=== PATIENT | female | born 1950 | race Caucasian/White ===

== ENCOUNTER 2020-11-20 16:39 | Observation (INO) | payer MEDICARE, OTHER, SELFPAY ==
[2020-11-20] VITALS (12 sets, daily range): BP systolic 148–190; BP diastolic 75–114; PULSE 80–109; RESP 16–20; TEMP 36.5–36.8; O2SAT 95–99; BMI 30.7; BMI 30.1
--- NOTE | 2020-11-20 16:52 | CT_ITS ---
We are attempting to reach an attending provider to discuss findings. An addendum with communication details will be sent when the communication is complete. STUDY: CT BRAIN WITHOUT CONTRAST REASON FOR EXAM: Female, 70 years old. Neuro deficit, acute, stroke suspected RADIATION DOSAGE (If Supplied By Facility): CTDIvol = ( ) mGy, DLP = ( ) mGycm TECHNIQUE: Transaxial CT imaging of the brain was performed without administration of intravenous contrast material. Individualized dose optimization techniques were used for this CT. COMPARISON: No relevant priors. FINDINGS: Normal soft tissue structures. Normal calvarium. Normal size ventricles and extra-axial spaces for the patient''s age. Normal white matter tracts of the cerebral hemispheres. Normal basal ganglia and thalami. Normal brainstem. Normal cerebellum. There is no intracranial hemorrhage. There are no findings of an acute ischemic infarction. Normal visualized paranasal sinuses. CT/STROKE Brain/Head without Cont IMPRESSION: Normal unenhanced CT scan of the brain. Electronically Signed: Bozena Ayala MD at 17:15 EST Tel , Service support ,
--- NOTE | 2020-11-20 16:52 | EKG12_ITS ---
Test Reason : STROKE Blood Pressure : / mmHG Vent. Rate : 101 BPM Atrial Rate : 101 BPM P-R Int : 160 ms QRS Dur : 092 ms QT Int : 352 ms P-R-T Axes : 069 -24 080 degrees QTc Int : 456 ms Sinus tachycardia N[address] and T wave abnormality Abnormal ECG Confirmed by DAVID LEWIS, CYRUS ([id number]), vehicle controls engineer CHET KINNEY ([id number]) on 11/22/2020 10:33:04 AM Referred By: Confirmed By:CYRUS HERNANDEZ MD
--- NOTE | 2020-11-20 16:54 | ED.DCSUM_ITS ---
- ER Visit Summary Date of Service: 11/20/20 Chief Complaint: Dizziness, left arm and leg weakness History of Present Illness: The patient is a 70 F presenting with an episode of dizziness earlier this morning. She states approximately one hour prior to arrival she began having left arm and leg weakness. She states she was walking and started having difficulty using her left leg. These symptoms lasted approximately 20 minutes. She states she had lightheadedness earlier this morning without vertigo. This episode lasted about 30 minutes. She denies vision or speech changes. Her symptoms are now resolved. She does currently feel anxious. She denies other complaints. Physical Examination: Vitals are stable. Patient is afebrile. Alert no acute distress. HEENT exam is unremarkable. Neck is supple. Lungs are clear and equal bilaterally. Heart is regular rate and rhythm. Abdomen is soft nontender nondistended. Extremities are unremarkable. Skin is warm and dry. NIH 1 decreased sensation on left side Remainder of exam is unremarkable. Emergency Department Course and Treatment: Stroke team was activated on patient's arrival. EKG is sinus tachycardia rate of 101 with no acute ischemic changes. Noncontrast head CT was unremarkable. Patient is allergic to IV contrast so CTA was not performed. CBC, chemistries unremarkable. INR 1.1. Troponin 0.029. Discussed with [facility] neurology. They recommend MRI and further work-up. Discussed with hospitalist for observation. Disposition: Observation Impression: TIA This note was generated with [employer] dictation software. It may contain incorrect words, spelling, and punctuation that were not noted in review of the chart prior to signing ED Disposition - Plan for ED Patient: Referrals: Jeniffer Leo MD [Primary Care Provider] -
[2020-11-20 17:01] LABS: Absolute Lymphocyte Count 2.59 X10^3/uL (0.83-4.51); Absolute Neutrophil Count 5.2 X10^3/uL (2.0-7.7); Basophil# 0.06 X10^3/uL; Basophil% 0.7 % (0-1); Eosinophil# 0.05 X10^3/uL; Eosinophils% 0.6 % (0-5); Hematocrit 40.4 % (37-47); Hemoglobin 12.9 g/dL (12.0-15.0); Lymphocyte # 2.59 X10^3/ul (4.0); Lymphocyte % 30.1 % (19-41); Mean Corp Hgb Conc 31.9 g/dL (32-36); Mean Corpuscular Hgb 31.2 pg (27.0-32.0); Mean Corpuscular Volume 97.8 fL (81-99); Mean Platelet Vol. 9.6 fl (6.2-12.0); Monocyte# 0.72 X10^3/uL; Monocyte% 8.4 % (0-10); NRBC Flagged by Analyzer 0 % (0-5); Neutrophil # 5.16 X10^3/uL (2.7-7.7); Platelet Count 294 K/mm3 (150-450); RBC Distribution Width CV 13.2 % (11.6-14.6); RBC Distribution Width SD 47.8 fl (35.1-43.9); Red Blood Count 4.13 M/mm3 (4.2-5.4); White Blood Count 8.6 K/mm3 (4.4-11.0)
[2020-11-20 17:10] LABS: International Normalized Ratio 1.1; Partial Thromboplast Time 24.8 Seconds (24.1-36.2); Prothrombin Time (Protime)PT. 13.3 SECONDS (11.7-14.9)
[2020-11-20 17:11] LABS: Bedside Glucose 121 mg/dL (70-110)
[2020-11-20 17:23] LABS: Anion Gap 9 (5-15); BUN 14 mg/dL (7-18); Calcium,Total 9.2 mg/dL (8.5-10.1); Chloride 103 mmol/L (98-107); Creatinine, Serum 1.08 mg/dL (0.55-1.02); EST Glomerular Filtration Rate 54 mL/min (>60); Est Glom Filt Rate - Afr Amer 65 mL/min (>60); Estimated Creatinine Clearance 46.67 ml/min; Glucose 125 mg/dL (74-106); Potassium 3.6 mmol/L (3.5-5.1); Sodium Level 140 mmol/L (136-145)
--- NOTE | 2020-11-20 17:35 | RAD_ITS ---
STUDY: X-RAY CHEST REASON FOR EXAM: Female, 70 years old. Neuro deficit, acute, stroke suspected TECHNIQUE: Single AP portable view of the chest. COMPARISON: None. FINDINGS: The lungs are clear and expanded. There is no demonstrated pleural abnormality. Normal size heart. Normal mediastinum and luis. Normal visualized pulmonary arteries. Normal visualized aortic arch and descending thoracic aorta. Normal visualized thoracic spine. Normal visualized ribs, clavicles, and shoulders. There is no demonstrated abnormality of the visualized soft tissue structures of the upper abdomen. RAD/Chest 1 View IMPRESSION: Normal x-ray examination of the chest. Electronically Signed: Bozena Ayala MD at 18:00 EST Tel , Service support ,
[2020-11-20] MEDS: Aspirin 325 MG Tablet PO (17:47)
--- NOTE | 2020-11-20 17:58 | HP.PCM_ITS ---
Problem List (1) Raynaud phenomenon Status: Chronic (2) HTN (hypertension) Status: Chronic (3) Hyperlipidemia Status: Chronic (4) Vitamin D deficiency Status: Chronic (5) Vertigo Status: Acute Comment: Acute on chronic (6) Left-sided weakness Status: Acute History of Present Illness Date of Admission: 11/20/20 Ms. Botello is a 70 year old WF with a past medical history of hypertension, hyperlipidemia, Raynaud's disease, vertigo, and anxiety scented to the emergency department on 11/20/2020 with chief complaint of dizziness and left arm and leg weakness. The patient reports that approximately 1030 this morning she started having some dizziness. She states the vertigo is not an abnormal symptom for her and she usually gets it a few times a year. She has been worked up in the past for this dizziness and it has been related to an inner ear problem. However, she had persistent intermittent dizziness for a good bit the day and this evening she began having left arm and leg weakness. This started approximately 1 hour prior to arrival to the emergency department. She reports the symptoms lasted approximately 20 minutes and then they improved, however they seem to be waxing and waning at this time. At the present time she is lee ving no symptoms. She states when the neurologist did his total exam she was able to ambulate around the room without any difficulty but then when the nurse got her to go up to the bathroom and she had to walk a distance she noted that her left side seemed weak. Her NIH at the present time is 0. She has normal strength and sensation bilaterally at this time. Vital signs show a temp of 97.7, she is mildly tachycardic with a heart rate of 101-1\05, she has been hypertensive in the emergency department. Her oxygen saturation is 98% on room air with normal respiratory rate. Her CBC is unremarkable. Her coags are unremarkable. BMP shows mild creatinine elevation at 1.08. I am unclear what her baseline serum creatinine is as she has had no labs drawn here in the past. Her troponin was 0.029. Her EKG shows normal sinus rhythm with intermittent PACs and no signs of acute ischemia. CT of her head was performed and was normal. A CTA was deferred as the patient has an allergy to iodinated contrast media. Stroke team was called on arrival in the telestroke neurologist did evaluate the patient the recommendations were for a full TIA work-up including an MRA/MRI of the head and neck, and echocardiogram, lipids, and hemoglobin A1c. She will be admitted to PCU for continued work-up. Past Medical History Past Medical History (Chronic Problems): Chronic Problems Raynaud phenomenon (Chronic) HTN (hypertension) (Chronic) Hyperlipidemia (Chronic) Vitamin D deficiency (Chronic) Allergies Iodinated Contrast Media Allergy (Verified 11/20/20 17:16) Swelling naproxen Allergy (Verified 11/20/20 16:40) Rash azithromycin [From Zithromax] Adverse Reaction (Verified 11/20/20 16:40) Vomiting Home Medications: Ambulatory Orders Medication Instructions Recorded Amlodipine [Norvasc] 5 mg PO DAILY 11/20/20 B1/B2/Niacin/B12/Protease 1 ea PO DAILY 11/20/20 [B-Complex with B-12 Tablet] Calcium Citrate/Vitamin D3 1 ea PO DAILY 11/20/20 [Calcium Citrate - Vit D Caplet] Cholecalciferol (Vitamin D3) 2,000 unit PO DAILY 11/20/20 [Vitamin D3] [place]-3 Fatty Acids/Fish Oil 1 ea PO DAILY 11/20/20 [[place] 3 Fish Oil Softgel] Rosuvastatin Calcium 5 mg PO DAILY 11/20/20 Ubidecarenone [Coq10] 100 mg PO DAILY 11/20/20 Surgical History: noncontributory Psychiatric History: No pertinent psych hx Lives: Alone Smoking Status: Never smoker Tobacco Use: Non-smoker Alcohol: Rare Drugs: None - *Family History Maternal History Items: Unknown, No pertinent history Paternal History Items: Unknown Sibling History Items: - - Mother is MRDD Review of Systems Constitutional: Denies: Anorexia, Chills, Fever, Night Sweats, Malaise, Weakness, Weight Change, Fatigue Eyes: Denies: Blurred vision, Cataracts, Conjunctivae Inflammation, Double vision, Drainage, Eyelid Inflammation, Pain, Redness, Vision Change HEENT: Denies: Difficulty Hearing, Difficulty Swallowing, Eye Pain, Head Aches, Nasal bleeding, Nasal Congestion, Post Nasal Drip, Sinus Congestion, Sinus Drainage, Sore Throat, Visual Changes Cardiovascular: Denies: Chest Pain, Claudication, Chest Pressure, Chest Tightness, Edema, Heaviness, Light Headedness, Orthopnea, Palpitations, Paroxysmal Noc. Dyspnea, Syncope Respiratory: Denies: Cough, Hemoptysis, Pleuritic Pain, Shortness of Breath, Shortness of breath at rest, Shortness of breath upon exertion, Sputum production, Wheezing Gastrointestinal: Denies: Abdominal Pain, Constipation, Diarrhea, Dyspepsia, Hematemesis, Hematochezia, Nausea, Melena, Vomiting Genitourinary: Denies: Dysuria, Frequency, Hematuria, Hesitancy, Incontinence, Nocturia, Retention, Urgency Musculoskeletal: Denies: Back Pain, Joint Pain, Joint stiffness, Joint swelling, Joint Tenderness, Muscle pain, Neck Pain Skin: Reports: - - Remittent Raynaud's in the cold. Denies: Dryness, Jaundice, Lesions, Pruritis, Rash, Skin Changes, Wounds Neurological: Reports: Focal weakness - Resolved-left upper and lower extremity, Numbness - Resolved-left upper and lower extremity. Denies: Balance problems, Blurred vision, Double vision, Change in Speech, Slurred speech, Confusion, Difficulty swallowing, Headaches, Incoordination, Tingling, Tremor, Seizures Psychiatric: Denies: Anxiety, Depression Endocrine: Denies: Change in Body Habitus, Heat/ Cold Intolerance, Polydipsia, Polyuria Hematologic/ Lymphatic: Denies: Adenopathy, Anemia, Easy Bruising, Easy Bleeding, Petechiae, Purpura VTE Information - Inpt Only VTE Present on Admission: No VTE Mechan Device Prophylaxis: SCD's VTE Pharm Prophylaxis ordered?: Yes - Physical Exam Vitals/I&O's: Vital Signs Temp Pulse Resp BP Pulse Ox 97.7 F L 105 H 17 175/81 H 98 11/20/20 17:31 11/20/20 17:31 11/20/20 17:31 11/20/20 17:31 11/20/20 17:31 Oxygen Delivery Method Room Air Weight: 86.183 kg Body Mass Index (BMI) 30.7 Finger Stick Blood Glucose 121 General: Alert, Oriented x3, Cooperative, No apparent distress, Well developed, Well nourished, - - Anxious upper middle-aged white female sitting up in bed, daughter at bedside, patient very talkative HEENT: Atraumatic, PERRLA, EOMI, Normocephalic, EAC Clear Oral: Moist Mucosa, No Gingival or Mucosal Lesions/ Ulcerations, - - Mallampati 2, no thrush Neck: Supple, No JVD, Negative Carotid Bruits, Negative Hepatojugular Reflux, No Nodes, No Nuchal Rigidity, Trachea Midline, Thyroid Normal Size and Texture Lungs: Clear to auscultation, Normal air movement, No rhonchi, No wheeze, No rales Cardiovascular: Regular rate, Regular Rhythm, Normal S1, Normal S2, No murmurs, No rub noted, No Gallop, - - Intermittent ectopy, appears to be PACs upon review of telemetry Abdomen: Bowel Sounds Present, Soft, Non Tender, Non-Distended, No Hepato- splenomegaly, Obese, No hernias noted, - Extremities: No clubbing, No cyanosis, No edema, Capillary Refill Less than 3 Seconds, Peripheral Pulses Normal Skin: No rashes, No breakdown Musculoskeletal: No Tenderness to Palpation of Joints or Extremities, No Muscle Wasting, Arthritic Changes Lymphatic: No Cervical, Supraclavicular, or Inguinal Adenopathy Neurological: Cranial nerves II-XII grossly intact, Deep Tendon Reflexes 2+/4 and Symmetrical, Neuro grossly intact, Motor Exam 5/5 strength throughout, Muscle tone normal, Sensory exam intact to light touch and pain, Coordination normal Psych/Mental Status: Normal Affect, Appropriate, Anxious Laboratory Results 11/20/20 16:54: WBC 8.6, RBC 4.13 L, Hgb 12.9, Hct 40.4, MCV 97.8, MCH 31.2, MCHC 31.9 L, RDW Std Deviation 47.8 H, RDW Coeff of Kirill 13.2, Plt Count 294, MPV 9.6, Immature Gran % (Auto) 0.200, Neut % (Auto) 60.0, Lymph % (Auto) 30.1, [place] % (Auto) 8.4, Eos % (Auto) 0.6, Baso % (Auto) 0.7, Absolute Neuts (auto) 5.2, Absolute Lymphs (auto) 2.59, Nucleated RBC % 0 11/20/20 16:54: PT 13.3, INR 1.1, APTT 24.8 11/20/20 16:54: Sodium 140, Potassium 3.6, Chloride 103, Carbon Dioxide 28.0, Anion Gap 9, BUN 14, Creatinine 1.08 H, Estim Creat Clear Calc 46.67, Est GFR (MDRD) Af Amer 65, Est GFR (MDRD) Non-Af 54 L, BUN/Creatinine Ratio 13.0, Glucos e 125 H, Calcium 9.2, Troponin I 0.029 11/20/20 17:04: POC Glucose 121 H Current Medications Labetalol HCl (Labetalol (Prefilled) 20 Mg/4 Ml) 20 mg IV X1 PRN PRN Reason: BLOOD PRESSURE Assessment/Plan All Active Problems Vertigo (Acute) Left-sided weakness (Acute) Acute left-sided weakness and vertigo -Stroke team initiated in the emergency department--> no TPA given -Current NIH is 0 -Symptoms have completely resolved at this time -Check lipids and hemoglobin A1c in the a.m. -MRA/MRI in a.m. -Check echocardiogram -Stroke order set utilized -Consider SOC consultation in the a.m. Hypertension -Continue home amlodipine -May need up titration of her home medication upon review of blood pressures during admission Hyperlipidemia -Continue statin -Check lipids Raynaud's phenomenon -Continue amlodipine Mild SHERRILL -IV fluids at 100 cc/h x 1 L -Repeat BMP in the a.m. Vitamin D deficiency -Restart vitamin D supplementation upon discharge Obesity -Recommend weight loss -BMI 30.7 DVT prophylaxis -Lovenox 40 mg daily CODE STATUS -Full code Inpatient E&M: 28462 Init Hosp L3
--- NOTE | 2020-11-20 18:01 | ECHOCS_ITS ---
Reason For Study: TIA/CVA Procedure This was a 2D Doppler, Color Flow transthoracic echocardiogram. The study was technically difficult. Contrast injection was performed. Exam performed portable in patient room. Left Ventricle Normal LV size. Left ventricular systolic function is normal. The estimated ejection fraction is 60 %. No regional wall motion abnormalities noted. Right Ventricle Normal RV size. Normal systolic function. Atria Normal left atrium. Normal right atrium. Bubble contrast study negative for right to left interatrial shunt. Mitral Valve Normal mitral valve. Tricuspid Valve Normal tricuspid valve. Aortic Valve Trisinus/trileaflet aortic valve. Pulmonic Valve Normal pulmonic valve. Great Vessels Normal aortic root. The pulmonary artery is normal size. Normal inferior vena cava. Pericardium/Pleural No pericardial effusion. Medication Diluted definity 2.5ml given slow IV push to enhance endocardial definition. Performed a rapid injection of agitated mix of 9 cc saline and 1cc air to assess for atrial septal defect. MMode/2D Measurements & Calculations LVIDd: 5.0 cm IVSd: 0.95 cm Ao root diam: 3.5 cm LVIDs: 3.2 cm LVPWd: 1.0 cm LA dimension: 3.5 cm FS: 35.7 % LAV(MOD-bp): 72.6 ml LA A4 area: 21.3 cm2 RA A4 area: 17.3 cm2 LAV(MOD-bp) Indexed: 37.2 ml/m2 LAV(MOD-sp2): 72.3 ml LAV(MOD-sp4): 67.3 ml Time Measurements MV dec time: 0.25 sec Doppler Measurements & Calculations MV E max nasima: 78.1 cm/sec MV V2 max: 76.4 cm/sec MV P1/2t max nasima: 77.6 cm/sec MV A max nasima: 71.7 cm/sec MV max P.3 mmHg MV P1/2t: 80.0 msec MV E/A: 1.1 MV V2 mean: 50.3 cm/sec MV dec slope: 284.3 cm/sec2 MV mean P.1 mmHg MV V2 VTI: 24.6 cm MVA(P1/2t): 2.8 cm2 Ao V2 max: 156.0 cm/sec LV V1 max: 103.0 cm/sec PA V2 max: 87.6 cm/sec Ao max P.7 mmHg LV V1 max P.2 mmHg Interpretation Summary Normal LV size. Left ventricular systolic function is normal. The estimated ejection fraction is 60 %. Bubble contrast study negative for right to left interatrial shunt. Contrast injection was performed. Structurally normal valves. Ordering Physician: Yesenia Oshea Referring Physician: JARETT COTA Performed By: Kurt Smiley RCS
[2020-11-20] MEDS: 0.9% Normal Saline 1,000 ML 100 ML IV (18:10)
[2020-11-20] MEDS: 0.9% Saline Lock 10 ML Syringe IV (18:58)
[2020-11-20] MEDS: Atorvastatin Calcium 10 MG Tablet PO (21:30)
[2020-11-20] MEDS: Ibuprofen 600 MG Tablet PO (22:33)
[2020-11-21] VITALS (8 sets, daily range): BP systolic 117–134; BP diastolic 57–97; PULSE 57–79; RESP 18; TEMP 36.3–36.7; O2SAT 95–97; BMI 30.1
[2020-11-21 05:27] LABS: Absolute Lymphocyte Count 2.91 X10^3/uL (0.83-4.51); Basophil# 0.05 X10^3/uL; Basophil% 0.9 % (0-1); Eosinophil# 0.07 X10^3/uL; Eosinophils% 1.3 % (0-5); Hematocrit 36.1 % (37-47); Hemoglobin 11.5 g/dL (12.0-15.0); Lymphocyte # 2.91 X10^3/ul (4.0); Lymphocyte % 53.5 % (19-41); Mean Corp Hgb Conc 31.9 g/dL (32-36); Mean Corpuscular Hgb 31.2 pg (27.0-32.0); Mean Corpuscular Volume 97.8 fL (81-99); Mean Platelet Vol. 9.3 fl (6.2-12.0); Monocyte# 0.42 X10^3/uL; Monocyte% 7.7 % (0-10); NRBC Flagged by Analyzer 0 % (0-5); Neutrophil # 1.98 X10^3/uL (2.7-7.7); Neutrophil % 36.4 % (47-70); Platelet Count 250 K/mm3 (150-450); RBC Distribution Width CV 13.2 % (11.6-14.6); Red Blood Count 3.69 M/mm3 (4.2-5.4); White Blood Count 5.4 K/mm3 (4.4-11.0)
[2020-11-21 05:50] LABS: ALB/GLOB Ratio 0.8 RATIO (0.9-2.4); AST(SGOT) 19 U/L (15-37); Alanine Aminotransfer ALT/SGPT 26 U/L (13-56); Alkaline Phosphatase 93 U/L (45-117); Anion Gap 6 (5-15); BUN 10 mg/dL (7-18); BUN/Creat Ratio 14.4 RATIO (10-20); Calcium,Total 8.5 mg/dL (8.5-10.1); Chloride 108 mmol/L (98-107); Cholesterol 181 mg/dL (200); Creatinine, Serum 0.69 mg/dL (0.55-1.02); EST Glomerular Filtration Rate 90 mL/min (>60); Est Glom Filt Rate - Afr Amer 108 mL/min (>60); Estimated Creatinine Clearance 50.41 ml/min; Globulin 3.6 g/dL (2.2-4.2); Glucose 97 mg/dL (74-106); High Density Lipoprotein 84 mg/dL; Magnesium 2.2 mg/dL (1.6-2.6); Phosphorus 3.3 mg/dL (2.5-4.9); Potassium 3.4 mmol/L (3.5-5.1); Protein, Total 6.6 g/dL (6.4-8.2); Sodium Level 142 mmol/L (136-145); Thyroid Stim Hormone (TSH) 3.15 uIU/mL (0.358-3.74); Triglycerides 51 mg/dL; Very Low Density Lipoprotein 10 mg/dL (5-40)
--- NOTE | 2020-11-21 08:00 | MRI_ITS ---
HISTORY: stroke, L SIDED WEAKNESS, DIZZINESS COMPARISON: MRI and MRA brain performed same time TECHNIQUE: MR angiography of the neck was performed per department protocol without IV gadolinium. Nascet criteria using the distal ICAs for comparison were used for evaluation of stenoses. # of images incl. paperwork: 547 FINDINGS: CAROTID: RIGHT: Normal appearing carotid bifurcation. Cervical course of the internal carotid artery is within normal limits without focal stenosis, aneurysm, or dissection. Normal CCA. Origin and proximal visualized branches of the external carotid artery appears normal. LEFT: Normal appearing carotid bifurcation. Cervical course of the internal carotid artery is within normal limits without focal stenosis, aneurysm, or dissection. Normal CCA. Origin and proximal visualized branches of the external carotid artery appears normal. VERTEBRAL: Bilateral vertebral arteries have a normal appearance with co-dominance. OTHER: Noncontributory. MRI/MRA Neck without Contrast IMPRESSION: 1. Negative MRA of the neck. at 1738 Reported and signed by: Blake Couch MD Electronically Signed: Blake Couch MD at 17:37 EST Tel , Service support ,
--- NOTE | 2020-11-21 08:00 | MRI_ITS ---
HISTORY: stroke, L SIDED WEAKNESS, DIZZINESS COMPARISON: CT brain performed one day prior to 12/05/2021 TECHNIQUE: Multisequence multiplanar MR imaging of the brain per department protocol without IV gadolinium. # of images including paperwork: 289 FINDINGS: BRAIN: Diffusion-weighted imaging shows no acute infarct. No remote parenchymal infarct. No parenchymal hemorrhage, intra-axial mass, mass effect, or midline shift. No abnormal extra-axial fluid collections. VENTRICLES: Ventricles are normal in size and configuration. No hydrocephalus. PARANASAL SINUSES: Clear MASTOIDS: Mastoid air cells are clear. ORBITS: Orbits are unremarkable. MRI/Brain without Contrast IMPRESSION: 1. No acute infarct or acute intracranial disease. 2. Negative noncontrast MR examination of brain. at 1655 Reported and signed by: Blake Couch MD Electronically Signed: Blake Couch MD at 16:54 EST Tel , Service support ,
--- NOTE | 2020-11-21 08:00 | MRI_ITS ---
HISTORY: stroke, L SIDED WEAKNESS, DIZZINESS COMPARISON: MRI brain performed same time TECHNIQUE: MR angiography of the brain was performed per department protocol without IV gadolinium. # of images incl. paperwork: 195 FINDINGS: Distal aspect of bilateral internal carotid arteries have a normal appearance without focal stenosis or aneurysmal dilatation. Proximal branches of bilateral anterior and middle cerebral arteries have a normal appearance. Flow signal is seen within the anterior communicating artery. Basilar artery is normal in caliber without focal stenosis or basilar tip aneurysm. Mild vertebrobasilar tortuosity. Bilateral posterior cerebral arteries are identified emanating from the basilar tip and are within normal limits within the visualized portions. Non-visualized right PCOM. Non-visualized left PCOM.The vertebrobasilar junction is intact. No aneurysm, acute branch occlusion, high-grade stenosis, or arteriovenous malformation. MRI/MRA Head ONLY without Contrast IMPRESSION: 1. Negative MRA of the brain. at 1717 Reported and signed by: Blake Couch MD Electronically Signed: Blake Couch MD at 17:16 EST Tel , Service support ,
[2020-11-21 08:17] LABS: Hemoglobin A1c 5.4 % (3.8-5.6)
[2020-11-21] MEDS: Aspirin 81 MG TAB.CHEW PO (09:38)
[2020-11-21] MEDS: amLODIPine 5 MG Tablet PO (09:38)
[2020-11-21] MEDS: Enoxaparin 40 MG/0.4 ML Syringe SC (09:38)
[2020-11-21] MEDS: Potassium Chloride Oral Tablet 20 MEQ 40 MEQ PO (09:38)
--- NOTE | 2020-11-21 10:31 | CASEMGMT ---
SW completed a PHQ 9 with patient as she may have had a Stroke or TIA. She scored a 4 which indicates minimal depression. She said she would normally be fine, however she is putting her 2 dogs down tomorrow. They have been keeping her up as they are really sick. SW offered support. She declined need for any counseling resources. Yulisa VALDEZ MSW
--- NOTE | 2020-11-21 11:36 | DCINST_ITS ---
- Discharge Diagnoses Current Active Problems: Current Active and Chronic Problems Raynaud phenomenon (Chronic) HTN (hypertension) (Chronic) Hyperlipidemia (Chronic) Vitamin D deficiency (Chronic) Vertigo (Acute) Acute on chronic Left-sided weakness (Acute) You will use the following diet at home:: No restrictions Discharge Activity: Return to Normal Activity Call your doctor if you observe: Shortness of breath, Dizziness, Fainting spells, Chest pain Allergies/Adverse Reactions: Allergies Iodinated Contrast Media Allergy (Verified 11/20/20 17:16) Swelling naproxen Allergy (Verified 11/20/20 16:40) Rash azithromycin [From Zithromax] Adverse Reaction (Verified 11/20/20 16:40) Vomiting Medications to take at Discharge Amlodipine [Norvasc] 5 mg PO DAILY 11/20/20 B1/B2/Niacin/B12/Protease [B-Complex with B-12 Tablet] 1 ea PO DAILY 11/20/20 Calcium Citrate/Vitamin D3 [Calcium Citrate - Vit D Caplet] 1 ea PO QHS 11/20/20 Cholecalciferol (Vitamin D3) [Vitamin D3] 2,000 unit PO DAILY 11/20/20 Glucos Sul 2Kcl/MSM/Chond/C/Mn [Glucosamine Chondroitin Cap] 1 cap PO BID 11/20/20 Ibuprofen 1 tab PO QHS 11/20/20 [place]-3 Fatty Acids/Fish Oil [[place] 3 Fish Oil Softgel] 1 ea PO DAILY 11/20/20 Ubidecarenone [Coq10] 100 mg PO QHS 11/20/20 Aspirin [Aspirin, Baby] 81 mg PO DAILY@0800 #30 tab.chew 11/21/20 Atorvastatin Calcium 40 mg PO QHS #30 tab 11/21/20 Pantoprazole Sodium [Protonix] 20 mg PO DAILY #30 tab 11/21/20 The following prescriptions were given: Aspirin [Aspirin, Baby] 81 mg PO DAILY@0800 #30 tab.chew Transmission Status: Pending to [id number] Atorvastatin Calcium 40 mg PO QHS #30 tab Transmission Status: Pending to [id number] Pantoprazole Sodium [Protonix] 20 mg PO DAILY #30 tab Transmission Status: Pending to [id number] Primary Care Physician: Jeniffer Leo MD [Primary Care Provider] - Please follow up with your Primary Care Physician in: 1 Week Test Results: Test results from this visit will be discussed in further detail at your follow- up appointment, if applicable. Please Follow Up With: Albino Solomon MD - Neurology When: Call for appointment Proposed Discharge Date: 11/21/20
--- NOTE | 2020-11-21 14:02 | CHAPLAIN ---
Type of Pastoral Visit _x__ Initial Visit ___ Follow-up Visit ___ On-call Visit ___ General Patient Visit ___ Spiritual Assessment ___ Family Conference ___ Bereavement ___ Rapid Response ___ Code Blue ___ Other (describe below) Pastoral Care Referral From _x__ Patient ___ Family ___ Nurse ___ Physician ___ Neck Fitter ___ Lead Network Architect ___ Other (describe below) Sacrament/Intervention _x__ Active listening ___ Anointing ___ Jain ___ Bereavement ___ Communion ___ Brenna exploration ___ ___ Life review _x__ Prayer ___ Reconciliation ___ Sacrament of Sick ___ Supportive presence ___ Wedding ___ Other (describe below) Pastoral Comments patient had requested that her catholic/cable cutter and swager be notified of her admission however since she believes she is being discharged today she stated that she will contact her catholic; pt did welcome a prayer and specifically for emotional needs as she has her dogs put down tomorrow.
--- NOTE | 2020-11-21 14:39 | PHA.DC.MC ---
Pharmacy Service has performed discharge medication reconciliation and counseling for this patient. The patient was counseled on the following discharge medications and changes in medications for homegoing were reviewed. 1. aspirin 2. lipitor - see note below 3. protonix The Reason for Use, instructions for use, and potential side effects were reviewed for all new medications. The patient's questions regarding all of their medications were answered. The patient was able to verbally demonstrate an understanding of their discharge medications. Home Medications Amlodipine [Norvasc] 5 mg PO DAILY 11/20/20 B1/B2/Niacin/B12/Protease [B-Complex with B-12 Tablet] 1 ea PO DAILY 11/20/20 Calcium Citrate/Vitamin D3 [Calcium Citrate - Vit D Caplet] 1 ea PO QHS 11/20/20 Cholecalciferol (Vitamin D3) [Vitamin D3] 2,000 unit PO DAILY 11/20/20 Glucos Sul 2Kcl/MSM/Chond/C/Mn [Glucosamine Chondroitin Cap] 1 cap PO BID 11/20/20 Ibuprofen 1 tab PO QHS 11/20/20 [place]-3 Fatty Acids/Fish Oil [[place] 3 Fish Oil Softgel] 1 ea PO DAILY 11/20/20 Ubidecarenone [Coq10] 100 mg PO QHS 11/20/20 Aspirin [Aspirin, Baby] 81 mg PO DAILY@0800 #30 tab.chew 11/21/20 Pantoprazole Sodium [Protonix] 20 mg PO DAILY #30 tab 11/21/20 Rosuvastatin Calcium [Crestor] 20 mg PO QHS #30 tab 11/21/20 The patient's discharge medication list was reviewed for discrepancies and discrepancies were resolved. NOTE: Pt was prescribed atorvastatin. During counseling, pt said she was previously on lipitor then was switched to crestor and had more success with that medication. Notified provider, med was switched from Lipitor back to crestor at a higher dose so pt can be on high intensity statin.
--- NOTE | 2020-11-21 15:26 | PCM.DC.SUM ---
<Belkys Peck NP - Last Filed: 11/21/20 17:25> Discharge Date and Diagnosis - Problem List Patient Problems: Active and Suspected Problems Vertigo (Acute) Acute on chronic Left-sided weakness (Acute) Date of Admission: 11/20/20 Date of Discharge: 11/21/20 - Primary Discharge Diagnosis Acute Problems: Active Problems 1. TIA, transient left-sided weakness 2. Hypertension 3. Hyperlipidemia 4. Raynaud's phenomenon 5. Vitamin D deficiency 6. Obesity - Secondary Discharge Diagnosis Chronic Problems: Chronic Problems Raynaud phenomenon (Chronic) HTN (hypertension) (Chronic) Hyperlipidemia (Chronic) Vitamin D deficiency (Chronic) Hospital Course and Treatment Imaging Results: Operations: None Procedures: 2-D Echocardiogram Summary of Care Provided: The patient is a 70 year old F admitted 11/20/2020 due to dizziness with transient left arm and leg weakness. 1. TIA, transient left-sided weakness-brain CT normal. MRI of brain shows no acute infarct. MRA of neck pending and will be reviewed prior to discharge. Echocardiogram demonstrates an EF of 60%, bubble contrast study negative for [id number] intra-atrial shunt. Discharged on aspirin, statin with neurology follow-up. Patient reports history of GERD and takes nightly ibuprofen for arthritic pain. Placed on prophylactic PPI. Follow-up with PCP in 1 week. 2. Hypertension-stable, continue amlodipine. 3. Hyperlipidemia-continue statin. 4. Raynaud's phenomenon-continue home medication regimen. 5. Vitamin D deficiency-continue supplementation. 6. Obesity-encouraged diet and lifestyle modifications. Patient seen and examined prior to discharge. Physical assessment as noted below. Patient is stable for discharge with follow up recommendations as noted above. This patient was seen by CASSIE LombardiC under the supervision of Dr. Marquez. Patient Problems: Active and Suspected Problems Vertigo (Acute) Acute on chronic Left-sided weakness (Acute) - Physical Exam Vitals/I&O's: Vital Signs Temp Pulse Resp BP Pulse Ox 98.0 F 77 18 117/97 H 95 11/21/20 13:30 11/21/20 13:30 11/21/20 13:30 11/21/20 13:30 11/21/20 13:30 Oxygen Delivery Method Room Air Weight: 189 lb 9.561 oz Body Mass Index (BMI) 30.1 Finger Stick Blood Glucose 121 Intake and Output for Last 24 Hours 11/19/20 11/20/20 11/21/20 23:59 23:59 23:59 Intake Total 2259 Balance 2259 General: Alert, Oriented x3, Cooperative HEENT: Atraumatic, PERRLA, EOMI, Normocephalic Neck: Supple, No JVD, Negative Carotid Bruits Lungs: Clear to auscultation, Normal air movement Cardiovascular: Regular rate, No murmurs Abdomen: Bowel Sounds Present, Soft, Non Tender Extremities: No clubbing, No cyanosis, No edema, Capillary Refill Less than 3 Seconds Skin: No rashes, No breakdown Musculoskeletal: No Tenderness to Palpation of Joints or Extremities Neurological: Cranial nerves II-XII grossly intact, Neuro grossly intact Psych/Mental Status: Normal Affect, Appropriate Laboratory Results 11/20/20 16:54: WBC 8.6, RBC 4.13 L, Hgb 12.9, Hct 40.4, MCV 97.8, MCH 31.2, MCHC 31.9 L, RDW Std Deviation 47.8 H, RDW Coeff of Kirill 13.2, Plt Count 294, MPV 9.6, Immature Gran % (Auto) 0.200, Neut % (Auto) 60.0, Lymph % (Auto) 30.1, Cocke % (Auto) 8.4, Eos % (Auto) 0.6, Baso % (Auto) 0.7, Absolute Neuts (auto) 5.2, Absolute Lymphs (auto) 2.59, Nucleated RBC % 0 11/20/20 16:54: PT 13.3, INR 1.1, APTT 24.8 11/20/20 16:54: Sodium 140, Potassium 3.6, Chloride 103, Carbon Dioxide 28.0, Anion Gap 9, BUN 14, Creatinine 1.08 H, Estim Creat Clear Calc 46.67, Est GFR (MDRD) Af Amer 65, Est GFR (MDRD) Non-Af 54 L, BUN/Creatinine Ratio 13.0, Glucose 125 H, Calcium 9.2, Troponin I 0.029 11/20/20 17:04: POC Glucose 121 H 11/21/20 05:18: WBC 5.4, RBC 3.69 L, Hgb 11.5 L, Hct 36.1 L, MCV 97.8, MCH 31.2, MCHC 31.9 L, RDW Std Deviation 48.0 H, RDW Coeff of Kirill 13.2, Plt Count 250, MPV 9.3, Immature Gran % (Auto) 0.200, Neut % (Auto) 36.4 L, Lymph % (Auto) 53.5 H, Cocke % (Auto) 7.7, Eos % (Auto) 1.3, Baso % (Auto) 0.9, Absolute Neuts (auto) 2.0, Absolute Lymphs (auto) 2.91, Nucleated RBC % 0 11/21/20 05:18: Sodium 142, Potassium 3.4 L, Chloride 108 H, Carbon Dioxide 28.0, Anion Gap 6, BUN 10, Creatinine 0.69, Estim Creat Clear Calc 50.41, Est GFR (MDRD) Af Amer 108, Est GFR (MDRD) Non-Af 90, BUN/Creatinine Ratio 14.4, Glucose 97, Calcium 8.5, Phosphorus 3.3, Magnesium 2.2, Total Bilirubin 0.50, AST 19, ALT 26, Alkaline Phosphatase 93, Total Protein 6.6, Albumin 3.0 L, Globulin 3.6, Albumin/Globulin Ratio 0.8 L, Triglycerides 51, Cholesterol 181, LDL Cholesterol 87, VLDL Cholesterol 10, HDL Cholesterol 84, TSH 3.15 11/21/20 05:18: Hemoglobin A1c 5.4 Current Medications Acetaminophen (Acetaminophen 325 Mg Tablet) 650 mg PO Q6H PRN PRN PRN Reason: Pain Score 1-10/Temp > 100.7 F Amlodipine Besylate (Amlodipine 5 Mg Tablet) 5 mg PO DAILY [facility] Last Admin: 11/21/20 09:38 Dose: 5 mg Documented by: Aspirin (Aspirin 81 Mg Tab.Chew) 81 mg PO DAILY@0800 [facility] Last Admin: 11/21/20 09:38 Dose: 81 mg Documented by: Atorvastatin Calcium (Atorvastatin Calcium 10 Mg Tablet) 10 mg PO QHS [facility] Last Admin: 11/20/20 21:30 Dose: 10 mg Documented by: Enoxaparin Sodium (Enoxaparin 40 Mg/0.4 Ml Syringe) 40 mg SC DAILY [facility] Last Admin: 11/21/20 09:38 Dose: 40 mg Documented by: Hydralazine HCl (Hydralazine 20 Mg/Ml Vial) 5 mg IV Q30M PRN PRN Reason: to maintain BP goals Sodium Chloride () 250 mls @ 15 mls/hr IV .[id number] PRN PRN Reason: Saline Flush Sodium Chloride () 250 mls @ 15 mls/hr IV .[id number] PRN PRN Reason: Additional IVPB Infusion Labetalol HCl (Labetalol (Prefilled) 20 Mg/4 Ml) 10 - 20 mg IV Q10M PRN PRN PRN Reason: to Maintain BP Goals Ondansetron HCl (Ondansetron 4 Mg/2 Ml Vial) 4 mg IV Q8H PRN PRN PRN Reason: NAUSEA/VOMITING Senna/Docusate Sodium (Senna/Docusate Sodium 1 Tablet) 2 tablet PO BID PRN PRN PRN Reason: Constipation Sodium Chloride (0.9% Saline Lock 10 Ml Syringe) 10 - 40 ml IV UD PRN PRN Reason: SALINE FLUSH Last Admin: 11/20/20 18:58 Dose: 10 ml Documented by: Discharge Diet: Low fat/ Low Cholesterol Discharge Activity: Return to Normal Activity Call your doctor if you observe: Shortness of breath, Dizziness, Fainting spells, Chest pain Home Medications: Medications to take at Discharge Amlodipine [Norvasc] 5 mg PO DAILY 11/20/20 B1/B2/Niacin/B12/Protease [B-Complex with B-12 Tablet] 1 ea PO DAILY 11/20/20 Calcium Citrate/Vitamin D3 [Calcium Citrate - Vit D Caplet] 1 ea PO QHS 11/20/20 Cholecalciferol (Vitamin D3) [Vitamin D3] 2,000 unit PO DAILY 11/20/20 Glucos Sul 2Kcl/MSM/Chond/C/Mn [Glucosamine Chondroitin Cap] 1 cap PO BID 11/20/20 Ibuprofen 1 tab PO QHS 11/20/20 [place]-3 Fatty Acids/Fish Oil [[place] 3 Fish Oil Softgel] 1 ea PO DAILY 11/20/20 Ubidecarenone [Coq10] 100 mg PO QHS 11/20/20 Aspirin [Aspirin, Baby] 81 mg PO DAILY@0800 #30 tab.chew 11/21/20 Pantoprazole Sodium [Protonix] 20 mg PO DAILY #30 tab 11/21/20 Rosuvastatin Calcium [Crestor] 20 mg PO QHS #30 tab 11/21/20 Following Prescriptions Were Given to Patient: Aspirin [Aspirin, Baby] 81 mg PO DAILY@0800 #30 tab.chew Transmission Status: Received by [id number] Rosuvastatin Calcium [Crestor] 20 mg PO QHS #30 tab Transmission Status: Received by [id number] Pantoprazole Sodium [Protonix] 20 mg PO DAILY #30 tab Transmission Status: Received by [id number] Primary Care Physician: Jeniffer Leo MD [Primary Care Provider] - Please follow up with your Primary Care Physician in: 1 Week Please Follow Up With: Albino Solomon MD - Neurology When: Call for appointment Disposition: Home Minutes spent on discharge:: 35 Patient Condition:: Stable Medical Necessity - Tobacco Use Smoking Status: Never smoker Tobacco Use: Non-smoker Meaningful Use Info Meaningful Use Diagnoses (Choose all that apply): None applicable <William Marquez F - Last Filed: 11/21/20 17:53> Discharge Date and Diagnosis - Primary Discharge Diagnosis Acute Problems: Active Problems Vertigo (Acute) Acute on chronic Left-sided weakness (Acute) - Secondary Discharge Diagnosis Chronic Problems: Chronic Problems Raynaud phenomenon (Chronic) HTN (hypertension) (Chronic) Hyperlipidemia (Chronic) Vitamin D deficiency (Chronic) Hospital Course and Treatment Summary of Care Provided: The patient is a 70 year old F [] - Physical Exam Vitals/I&O's: Vital Signs Temp Pulse Resp BP Pulse Ox 98.0 F 79 18 117/97 H 95 11/21/20 13:30 11/21/20 15:21 11/21/20 13:30 11/21/20 13:30 11/21/20 13:30 Oxygen Delivery Method Room Air Weight: 189 lb 9.561 oz Body Mass Index (BMI) 30.1 Finger Stick Blood Glucose 121 Intake and Output for Last 24 Hours 11/19/20 11/20/20 11/21/20 23:59 23:59 23:59 Intake Total 2260 / 2260 Balance 2260 / 2260 Laboratory Results 11/21/20 05:18: WBC 5.4, RBC 3.69 L, Hgb 11.5 L, Hct 36.1 L, MCV 97.8, MCH 31.2, MCHC 31.9 L, RDW Std Deviation 48.0 H, RDW Coeff of Kirill 13.2, Plt Count 250, MPV 9.3, Immature Gran % (Auto) 0.200, Neut % (Auto) 36.4 L, Lymph % (Auto) 53.5 H, Cocke % (Auto) 7.7, Eos % (Auto) 1.3, Baso % (Auto) 0.9, Absolute Neuts (auto) 2.0, Absolute Lymphs (auto) 2.91, Nucleated RBC % 0 11/21/20 05:18: Sodium 142, Potassium 3.4 L, Chloride 108 H, Carbon Dioxide 28.0, Anion Gap 6, BUN 10, Creatinine 0.69, Estim Creat Clear Calc 50.41, Est GFR (MDRD) Af Amer 108, Est GFR (MDRD) Non-Af 90, BUN/Creatinine Ratio 14.4, Glucose 97, Calcium 8.5, Phosphorus 3.3, Magnesium 2.2, Total Bilirubin 0.50, AST 19, ALT 26, Alkaline Phosphatase 93, Total Protein 6.6, Albumin 3.0 L, Globulin 3.6, Albumin/Globulin Ratio 0.8 L, Triglycerides 51, Cholesterol 181, LDL Cholesterol 87, VLDL Cholesterol 10, HDL Cholesterol 84, TSH 3.15 11/21/20 05:18: Hemoglobin A1c 5.4 Current Medications Acetaminophen (Acetaminophen 325 Mg Tablet) 650 mg PO Q6H PRN PRN PRN Reason: Pain Score 1-10/Temp > 100.7 F Amlodipine Besylate (Amlodipine 5 Mg Tablet) 5 mg PO DAILY [facility] Last Admin: 11/21/20 09:38 Dose: 5 mg Documented by: Aspirin (Aspirin 81 Mg Tab.Chew) 81 mg PO DAILY@0800 [facility] Last Admin: 11/21/20 09:38 Dose: 81 mg Documented by: Atorvastatin Calcium (Atorvastatin Calcium 10 Mg Tablet) 10 mg PO QHS [facility] Last Admin: 11/20/20 21:30 Dose: 10 mg Documented by: Enoxaparin Sodium (Enoxaparin 40 Mg/0.4 Ml Syringe) 40 mg SC DAILY [facility] Last Admin: 11/21/20 09:38 Dose: 40 mg Documented by: Hydralazine HCl (Hydralazine 20 Mg/Ml Vial) 5 mg IV Q30M PRN PRN Reason: to maintain BP goals Sodium Chloride () 250 mls @ 15 mls/hr IV .[id number] PRN PRN Reason: Saline Flush Sodium Chloride () 250 mls @ 15 mls/hr IV .[id number] PRN PRN Reason: Additional IVPB Infusion Labetalol HCl (Labetalol (Prefilled) 20 Mg/4 Ml) 10 - 20 mg IV Q10M PRN PRN PRN Reason: to Maintain BP Goals Ondansetron HCl (Ondansetron 4 Mg/2 Ml Vial) 4 mg IV Q8H PRN PRN PRN Reason: NAUSEA/VOMITING Senna/Docusate Sodium (Senna/Docusate Sodium 1 Tablet) 2 tablet PO BID PRN PRN PRN Reason: Constipation Sodium Chloride (0.9% Saline Lock 10 Ml Syringe) 10 - 40 ml IV UD PRN PRN Reason: SALINE FLUSH Last Admin: 11/20/20 18:58 Dose: 10 ml Documented by: Addendum: Dr. Marquez I personally examined the patient and reviewed the chart. I agree with the above. 70-year-old female presented with transient left-sided weakness. She also had vertigo as well. Symptoms started earlier in the day and had resolved after she had arrived to the ER. She was evaluated by neurology at that time and was found to have an NIH of 0. MRI of her brain was negative for stroke, MRA of her head and neck was also negative. Echo was normal. She continues to be asymptomatic, and her vertigo has resolved as well. Also had a mild SHERRILL on admission with a creatinine of 1.08, today on discharge was 0.69. Commended she follow-up with a PCP in 1 week and follow-up with neurology as an outpatient as well. Continue with aspirin and statin. OBSV E&M: 70699 Observation care discharge
== END 2020-11-21 11:34 | disposition home or self-care (01) ==
LOC: ED 17:51 → PCU 17:53
PROVIDERS: Admitting Provider Internal Medicine; Emergency Provider Emergency Medicine; PCP Family Medicine; Visit Provider Family Medicine
DX: R42 Dizziness and giddiness (principal); R53.1 Weakness; Z79.899 Other long term (current) drug therapy; I10 Essential (primary) hypertension; E78.5 Hyperlipidemia, unspecified; I73.00 Raynaud's syndrome without gangrene; E55.9 Vitamin D deficiency, unspecified; N17.9 Acute kidney failure, unspecified; E66.9 Obesity, unspecified; Z68.30 Body mass index [BMI] 30.0-30.9, adult; R00.0 Tachycardia, unspecified
CPT/HCPCS: 70450; 70544; 70547; 70551; 71045; 80048; 80053; 80061; 82962; 83036; 83735; 84100; 84443; 84484; 85025; 85610; 85730; 93005; 93306; 96360; 96361; 96365; 96366; 96372; 96375; 96376; 97161; 97166; 99218; 99251; 99285; J7030; Q9957; A4216; C8929; G0378; G0463

== ENCOUNTER → 2021-01-16 11:51 | Outpatient (CLI) | payer MEDICARE, OTHER, SELFPAY ==
[2021-01-16 10:52] VITALS: BMI 34.0
[2021-01-16 13:06] LABS: Vitamin B12 893 pg/mL (211-911)
[2021-01-16 14:18] LABS: Ferritin 33 ng/mL (8-252); Iron 107 ug/dL (50-170); Potassium 4.4 mmol/L (3.5-5.1)
== END ==
PROVIDERS: PCP Family Medicine; Referring Provider Psychiatry & Neurology Neurology; Visit Provider Psychiatry & Neurology Neurology
DX: D64.9 Anemia, unspecified (principal); E87.6 Hypokalemia
CPT/HCPCS: 36415; 82607; 82728; 82746; 83540; 84132

== ENCOUNTER → 2021-01-25 08:46 | Outpatient (CLI) | payer MEDICARE, OTHER, SELFPAY ==
[2021-01-16 10:52] VITALS: BMI 34.0
== END ==
PROVIDERS: PCP Family Medicine; Referring Provider Psychiatry & Neurology Neurology; Visit Provider Psychiatry & Neurology Neurology
DX: G45.9 Transient cerebral ischemic attack, unspecified (principal)
CPT/HCPCS: 93225; 93226

== ENCOUNTER 2021-11-08 08:12 | Outpatient (CLI) | payer MEDICARE, OTHER, SELFPAY ==
--- NOTE | 2021-11-08 08:15 | BI_ITS ---
MAMMOGRAPHY - BILATERAL SCREENING REASON FOR EXAM: Female, 70 years old. Routine annual screening examination. PERTINENT HISTORY: Non-contributory. TECHNIQUE: Digital bilateral breast snow (3D mammographic acquisition) in the CC and MLO projections. 2-D mediolateral oblique (MLO) and craniocaudad (CC) views of both breasts were obtained. CAD: Full Field Digital Mammography with Computer Added Detection was performed. COMPARISON: Comparison is made with prior outside examination dated 11/07/2020. FINDINGS: Breast Composition: There are scattered areas of fibroglandular density. There are no dominant masses or suspicious calcifications. No other significant abnormalities are identified. There has been no significant change since the prior study. BI/SCRN MAMM (CAD)W/SNOW BILAT IMPRESSION: Stable bilateral screening mammogram. Yearly follow-up mammogram recommended. (A) ASSESSMENT CATEGORY: BIRADS Category 1: Negative. A letter regarding these results will be sent to the patient by the facility within 30 days. Approximately 10% of breast cancers are not detected by mammography. A normal mammogram should not delay biopsy of a clinically suspicious abnormality. [id number] Electronically Signed: Getachew Arteaga MD at 8:59 EST ,
[2021-11-08 08:55] LABS: Absolute Lymphocyte Count 1.95 X10^3/uL (0.83-4.51); Absolute Neutrophil Count 2.1 X10^3/uL (2.0-7.7); Basophil# 0.04 X10^3/uL; Basophil% 0.8 % (0-1); Eosinophil# 0.26 X10^3/uL; Eosinophils% 5.5 % (0-5); Hematocrit 39.8 % (37-47); Hemoglobin 13.4 g/dL (12.0-15.0); Lymphocyte # 1.95 X10^3/ul (0.83-4.51); Lymphocyte % 41.3 % (19-41); Mean Corp Hgb Conc 33.7 g/dL (32-36); Mean Platelet Vol. 9.9 fl (6.2-12.0); Monocyte% 8.5 % (0-10); NRBC Flagged by Analyzer 0 % (0-5); Neutrophil # 2.05 X10^3/uL (2.7-7.7); Neutrophil % 43.5 % (47-70); Platelet Count 236 K/mm3 (150-450); RBC Distribution Width CV 14.1 % (11.6-14.6); RBC Distribution Width SD 50.9 fl (35.1-43.9); Red Blood Count 4.06 M/mm3 (4.2-5.4); White Blood Count 4.7 K/mm3 (4.4-11.0)
[2021-11-08 09:22] LABS: ALB/GLOB Ratio 0.9 RATIO (0.9-2.4); AST(SGOT) 25 U/L (15-37); Alanine Aminotransfer ALT/SGPT 32 U/L (13-56); Albumin, Serum 3.6 g/dL (3.2-5.0); Alkaline Phosphatase 81 U/L (45-117); Anion Gap 4 (5-15); BUN 12 mg/dL (7-18); Calcium,Total 8.9 mg/dL (8.5-10.1); Chloride 105 mmol/L (98-107); Cholesterol 179 mg/dL (200); EST Glomerular Filtration Rate 75 mL/min (>60); Est Glom Filt Rate - Afr Amer 91 mL/min (>60); Globulin 3.8 g/dL (2.2-4.2); Glucose 102 mg/dL (74-106); High Density Lipoprotein 83 mg/dL; Potassium 4.2 mmol/L (3.5-5.1); Protein, Total 7.4 g/dL (6.4-8.2); Sodium Level 140 mmol/L (136-145); Triglycerides 79 mg/dL; Very Low Density Lipoprotein 16 mg/dL (5-40)
[2021-11-08 09:31] LABS: Vitamin B12 1223 pg/mL (211-911); Vitamin D,25 Hydroxy 44.8 ng/mL
== END 2021-11-08 23:59 | disposition home or self-care (01) ==
PROVIDERS: PCP Family Medicine; Referring Provider Family Medicine; Visit Provider Family Medicine
DX: Z12.31 Encounter for screening mammogram for malignant neoplasm of breast (principal); M85.80 Other specified disorders of bone density and structure, unspecified site; I10 Essential (primary) hypertension
CPT/HCPCS: 36415; 77063; 77067; 80053; 80061; 82306; 82607; 85025

== ENCOUNTER → 2022-05-09 | Outpatient (CLI) | payer MEDICARE, OTHER, SELFPAY ==
[2022-05-09 09:54] LABS: Absolute Neutrophil Count 2.1 X10^3/uL (2.0-7.7); Basophil# 0.04 X10^3/uL; Basophil% 0.8 % (0-1); Eosinophil# 0.31 X10^3/uL; Eosinophils% 6.2 % (0-5); Hematocrit 39.6 % (37-47); Hemoglobin 13.3 g/dL (12.0-15.0); Lymphocyte % 44.3 % (19-41); Mean Corp Hgb Conc 33.6 g/dL (32-36); Mean Corpuscular Hgb 32.4 pg (27.0-32.0); Mean Corpuscular Volume 96.6 fL (81-99); Mean Platelet Vol. 9.8 fl (6.2-12.0); Monocyte# 0.35 X10^3/uL; NRBC Flagged by Analyzer 0 % (0-5); Neutrophil # 2.06 X10^3/uL (2.7-7.7); Neutrophil % 41.5 % (47-70); Platelet Count 265 K/mm3 (150-450); RBC Distribution Width CV 13.5 % (11.6-14.6); RBC Distribution Width SD 48.1 fl (35.1-43.9)
[2022-05-09 10:04] LABS: Prothrombin Time (Protime)PT. 13.2 SECONDS (11.7-14.9)
== END | disposition home or self-care (01) ==
PROVIDERS: PCP Family Medicine; Referring Provider Family Medicine; Visit Provider Family Medicine
DX: R23.3 Spontaneous ecchymoses (principal)
CPT/HCPCS: 36415; 85025; 85610

== ENCOUNTER 2022-05-24 07:27 | Day surgery (SDC) | payer MEDICARE, OTHER, SELFPAY ==
[2022-05-24] VITALS (7 sets, daily range): BP systolic 94–148; BP diastolic 58–83; PULSE 61–72; RESP 16–18; TEMP 36.3–36.5; O2SAT 98–99; BMI 32.6
--- NOTE | 2022-05-24 | ESO_PTH ---
PATIENT: DOMINIC GARCIA LOC: EN U#:[id number] AGE/SX: 71/F ROOM: RE05/24/[address]: Dr. Dylan Smith DO : 1950 BED: DIS: 05/24/2022 SPEC #: [id number] RECD: 05/24/22 11:15 STATUS: DI REShakila #: [id number] RYAN: 05/24/22 00:[address]: Dylan Smith DEPT: SURGICAL PATHOLOGY RECD BY: Michael Amezquita ENTERED: 05/24/22 11:16 SP TYPE: AUBREE WELSH DR: Dr. Zafar Spivey, Tissues: A - Esophagus, NOS B - Esophageal mucous membrane C - Ileum, NOS D - COLON BIOPSY E - Rectum, NOS Procedures: Special Stain Group II Surgery Specimen Level IV Alcian Blue/PAS (control) HEADER OPERATION: Colonoscopy, [place] biopsy PRE-OP DIAGNOSIS: GERD, costochondritis TISSUE SUBMITTED: A ? Distal esophagus biopsy, B ? Papilloma esophagus biopsy, C ? Terminal ileum biopsy, D ? Random colonic biopsy, E - Rectum MICROSCOPIC DIAGNOSIS A. Distal esophagus, biopsy: Gastroesophageal junctional mucosa with chronic inflammation. Focal changes of reflux. No evidence of goblet cell metaplasia. See comment. B. Papilloma of esophagus, biopsy: Fragments of benign squamous mucosa. C. Terminal ileum, biopsy: No pathologic change. D. Colon, random biopsy: No pathologic change. E. Rectum, biopsy: No pathologic change. AM:monica 05/25/2022 COMMENT A. Alcian blue/PAS stain with matched control supports the above diagnosis. MICROSCOPIC DESCRIPTION Slides are reviewed. GROSS DESCRIPTION A - Received in fixative is one container labeled with the patient's name and designated distal esophagus biopsy. The specimen consists of two irregular fragments of light cifuentes soft tissue that in aggregate measure 0.6 x 0.3 x 0.1 cm. The specimen is totally submitted in one cassette. B - Received in fixative is one container labeled with the patient's name and designated papilloma esophagus biopsy. The specimen consists of one irregular fragment of light cifuentes soft tissue that measures 0.5 x 0.4 x 0.1 cm. The specimen is totally submitted in one cassette. C - Received in fixative is one container labeled with the patient's name and designated terminal ileum biopsy. The specimen consists of multiple irregular fragments of light cifuentes soft tissue that in aggregate measure 1 x 0.3 x 0.1 cm. The specimen is totally submitted in one cassette. D - Received in fixative is one container labeled with the patient's name and designated random colonic biopsy. The specimen consists of multiple irregular fragments of light cifuentes soft tissue that in aggregate measure 1.5 x 0.4 x 0.1 cm. The specimen is totally submitted in one cassette. E - Received in fixative is one container labeled with the patient's name and designated rectum. The specimen consists of one irregular fragment of light cifuentes soft tissue that measures 0.5 x 0.3 x 0.1 cm. The specimen is totally submitted in one cassette. / SJ:rg 05/24/2022 TC:5 CPT: 94528 x5, 33210
--- NOTE | 2022-05-24 08:00 | PCM.HP.BLA ---
History and Physical Date of Admission: 05/24/22 DOMINIC GARCIA, is a 71 F who presents to the office today for GERD, epigastric pain with bending over, desire for screening colonoscopy The epigastric pain began 6 months ago, on right side of epigastrium at ribs, only occurs with bending forward or pressing on that spot. She has fibromyalgia, reports lots of pain. ? She has heartburn that is managed w/ pantoprazole. The PPI was started by Neurologist when she was being treated for possible TIA. Neuro w/u was negative, she thinks maybe her symptoms were due to anxiety due to having to put both her dogs to sleep. Neuro put her on PPI while he had her on another med. She tried to d/c PPI but then needed TUMS. So she remains on pantoprazole which works well for managing heartburn. She decreased ibuprofen to one 600 mg at HS for hip pain, decreasing the frequency helped with heartburn. Denies nausea, vomiting, hematemesis. She does report rare choking, typically it when she eats peppers, the problem is in the left side of the throat. Food has never gotten stuck in her esophagus. Bowels are good, she eats lots of fiber and takes fiber pills. Regular daily BM, no straining. No diarrhea. No melena or hematochezia. No prior colonoscopy, has done Cologuard tests. Her daughter recently had a colon mass removed, it was benign. Patient's from colon cancer. Comorbidities include fibromyalgia, hyperlipidemia, osteopenia, positive EMELY, Raynaud's, vit D deficiency, HTN ROS Const Constitutional: Positive for weight change; No fatigue ENT ENT: Positive for difficulty swallowing Gastro GI: Positive for abdominal pain, heartburn and difficulty swallowing; No belching, bloating, change in bowel habits, change in stool character, coffee ground emesis, constipation, cramping, diarrhea, feeling full early, excessive flatus, incontinent of stools, Vomiting blood/hematemesis, Blood in stool, loose stools, Black,tarry stools, nausea/dyspepsia, pain with swallowing, vomiting or other Musc Musculoskeletal: Positive for Arthritis; No joint pain Skin Skin: No yellowing of the eye or itchy eyes Psych Psychiatric: No anxiety and No depression Endo Endocrine: Positive for weight change; No fatigue Aller/Imm Allergy/Immunologic: No itchy eyes Lavell/Lymp Hematologic/Lymphatic: No easy bleeding or easy bruising Exam Const General: cooperative, comfortable, well developed and well groomed Nutritional Appearance: obese Eyes General: appearance normal, both eyes and all related structures Resp Effort & Inspection: normal respiratory effort GI Inspection: normal to inspection Palpation: soft, no hepatosplenomegaly, no masses and nontender Musc Other: very tender at costochondral junctures right anterior lower Skin General: no rashes or lesions noted Neuro General: patient alert, patient awake and patient oriented x3 Gait: normal gait Psych Mood: euthymic mood Affect: normal affect Quality Reporting Tobacco Screening ([facility] 138) Smoking Status: Never smoker Assessment and Plan Assessment and Plan (1) GERD (gastroesophageal reflux disease): ?Status:?Acute ?Plan - Katerina Parks NP, HEALTH CARE ANALYST-C: 71 yr old female with GERD Continue PPI Schedule EGD to r/o [facility] at same time as screening colonoscopy, f/u 2 wks after endoscopy to discuss results (2) Costochondritis: ?Status:?Acute ?Plan - Katerina Parks NP, HEALTH CARE ANALYST-C: Reassurance, try ice or heat (3) Colonoscopy planned: ?Status:?Acute ?Plan - Katerina Parks NP, HEALTH CARE ANALYST-C: Screening colonoscopy will be scheduled I have re-examined the patient. There are no clinical changes since date of exam.
[2022-05-24] MEDS: Lactated Ringers 1,000 ML 15 ML IV (08:18)
--- NOTE | 2022-05-24 09:38 | OP.EGD_ITS ---
Patient Name: Sybil Botello Procedure Date: 05/24/2022 9:01 AM Date of : 1950 Age: 71 Procedure: Upper GI endoscopy Indications: Dysphagia Providers: Dylan Smith DO Medicines: Monitored Anesthesia Care Patient Profile: This is a 71 year old female. Refer to note in patient chart for documentation of history and physical. Patient has symptoms. Complications: No immediate complications. Procedure: Pre-Anesthesia Assessment: - Prior to the procedure, a History and Physical was performed, and patient medications and allergies were reviewed. The risks and benefits of the procedure and the sedation options and risks were discussed with the patient. All questions were answered and informed consent was obtained. Patient identification and proposed procedure were verified by the physician in the pre-procedure area. Mental Status Examination: alert and oriented. Airway Examination: normal oropharyngeal airway and neck mobility. Respiratory Examination: clear to auscultation. CV Examination: normal. Prophylactic Antibiotics: The patient does not require prophylactic antibiotics. Prior Anticoagulants: The patient has taken no previous anticoagulant or antiplatelet agents. ASA Grade Assessment: II - A patient with mild systemic disease. After reviewing the risks and benefits, the patient was deemed in satisfactory condition to undergo the procedure. The anesthesia plan was to use moderate sedation / analgesia (conscious sedation). Immediately prior to administration of medications, the patient was re-assessed for adequacy to receive sedatives. The heart rate, respiratory rate, oxygen saturations, blood pressure, adequacy of pulmonary ventilation, and response to care were monitored throughout the procedure. The physical status of the patient was re-assessed after the procedure. After obtaining informed consent, the endoscope was passed under direct vision. Throughout the procedure, the patient's blood pressure, pulse, and oxygen saturations were monitored continuously. The pediatric colonoscope was introduced through the mouth, and advanced to the second part of duodenum. The upper GI endoscopy was accomplished without difficulty. The patient tolerated the procedure well. Scope In: 9:10:36 AM Scope Out: 9:15:49 AM Total Procedure Duration Time 0 hours 5 minutes 13 seconds Findings: A non-bleeding diverticulum with a small opening and no stigmata of recent bleeding was found at the cricopharyngeus. The Z-line was irregular and was found 38 cm from the incisors. Biopsies were taken with a cold forceps for histology. Verification of patient identification for the specimen was done. Estimated blood loss was minimal. A large hiatal hernia was present. The cardia and gastric fundus were normal on retroflexion. No gross lesions were noted in the second portion of the duodenum. One 3 mm polyp was found 21 to 22 cm from the incisors. The polyp was removed with a jumbo cold forceps. Resection and retrieval were complete. Verification of patient identification for the specimen was done. Estimated blood loss: none. 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 - Z-line irregular, 38 cm from the incisors. Biopsied. - Large hiatal hernia. - No gross lesions in the second portion of the duodenum. Recommendation: - Discharge patient to home. - Resume previous diet. - Continue present medications. - Await pathology results. Procedure Code(s): --- Professional --- 03953, Esophagogastroduodenoscopy, flexible, transoral; with biopsy, single or multiple CPT copyright 2017 [employer]. All rights reserved. The codes documented in this report are preliminary and upon disability case manager review may be revised to meet current compliance requirements. Dylan Smith DO 05/24/2022 9:38:07 AM This report has been signed electronically. Number of Addenda: 1 Note Initiated On: 05/24/2022 9:01 AM Addendum Number: 1 Addendum Date: 06/29/2022 6:17:09 AM MAC was used as sedation for this procedure. Dylan Smith DO 06/29/2022 6:17:13 AM This report has been signed electronically.
--- NOTE | 2022-05-24 09:39 | OP.CCLET_ITS ---
06/29/2022 Zafar Spivey [address] [facility] [place] [address] [place] [address] Re : Upper GI endoscopy procedure for Sybil Rosmery Dear Dr. Spivey This procedure was performed on May. 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 - Z-line irregular, 38 cm from the incisors. Biopsied. - Large hiatal hernia. - No gross lesions in the second portion of the duodenum. Recommendations : - Discharge patient to home. - Resume previous diet. - Continue present medications. - Await pathology results. My findings are described in the full procedure note, which is enclosed. If I can be of further assistance, please feel free to contact me at . Sincerely, Dylan Smith, 05/24/2022 9:38:07 AM This report has been signed electronically.
--- NOTE | 2022-05-24 09:49 | OP.CCLET_ITS ---
06/29/2022 Zafar Spivey [address] [place] [address] Re : Colonoscopy procedure for Sybil Botello Dear Dr. Spivey This procedure was performed on May. My impressions and recommendations are as follows: Impressions : - The entire examined colon is normal. - Diverticulosis in the recto-sigmoid colon. - Internal hemorrhoids. - No specimens collected. Recommendations : - Repeat colonoscopy in 10 years for screening purposes. - Continue present medications. My findings are described in the full procedure note, which is enclosed. If I can be of further assistance, please feel free to contact me at . Sincerely, Dylan Smith, 05/24/2022 9:49:10 AM This report has been signed electronically.
--- NOTE | 2022-05-24 09:49 | OP.COLON_ITS ---
Patient Name: Sybil Botello Procedure Date: 05/24/2022 9:16 AM Date of : 1950 Age: 71 Procedure: Colonoscopy Indications: Screening for colorectal malignant neoplasm Providers: Dylan Smith DO Medicines: Monitored Anesthesia Care Patient Profile: This is a 71 year old female. Refer to note in patient chart for documentation of history and physical. Patient has symptoms. Last Colonoscopy: none. The patient's first colonoscopy is today. Complications: No immediate complications. Procedure: Pre-Anesthesia Assessment: - Prior to the procedure, a History and Physical was performed, and patient medications and allergies were reviewed. The risks and benefits of the procedure and the sedation options and risks were discussed with the patient. All questions were answered and informed consent was obtained. Patient identification and proposed procedure were verified by the physician in the pre-procedure area. Mental Status Examination: alert and oriented. Airway Examination: normal oropharyngeal airway and neck mobility. Respiratory Examination: clear to auscultation. CV Examination: normal. Prophylactic Antibiotics: The patient does not require prophylactic antibiotics. Prior Anticoagulants: The patient has taken no previous anticoagulant or antiplatelet agents. ASA Grade Assessment: II - A patient with mild systemic disease. After reviewing the risks and benefits, the patient was deemed in satisfactory condition to undergo the procedure. The anesthesia plan was to use moderate sedation / analgesia (conscious sedation). Immediately prior to administration of medications, the patient was re-assessed for adequacy to receive sedatives. The heart rate, respiratory rate, oxygen saturations, blood pressure, adequacy of pulmonary ventilation, and response to care were monitored throughout the procedure. The physical status of the patient was re-assessed after the procedure. After I obtained informed consent, the scope was passed under direct vision. Throughout the procedure, the patient's blood pressure, pulse, and oxygen saturations were monitored continuously. The colonoscope was introduced through the anus and advanced to the terminal ileum. The colonoscopy was performed without difficulty. The patient tolerated the procedure well. The quality of the bowel preparation was good. Scope In: 9:18:11 AM Scope Withdrawal Time 0 hours 10 minutes 8 seconds Scope Out: 9:32:47 AM Total Procedure Duration Time 0 hours 14 minutes 36 seconds Findings: The colon (entire examined portion) appeared normal. A few small-mouthed diverticula were found in the recto-sigmoid colon. Internal hemorrhoids were found during retroflexion. The hemorrhoids were Grade I (internal hemorrhoids that do not prolapse). Impression: - The entire examined colon is normal. - Diverticulosis in the recto-sigmoid colon. - Internal hemorrhoids. - No specimens collected. Recommendation: - Repeat colonoscopy in 10 years for screening purposes. - Continue present medications. Procedure Code(s): --- Professional --- G0121, Colorectal cancer screening; colonoscopy on individual not meeting criteria for high risk CPT copyright 2017 [employer]. All rights reserved. The codes documented in this report are preliminary and upon certified procedural coder review may be revised to meet current compliance requirements. Dylan Smith DO 05/24/2022 9:49:10 AM This report has been signed electronically. Number of Addenda: 1 Note Initiated On: 05/24/2022 9:16 AM Addendum Number: 1 Addendum Date: 06/29/2022 6:17:21 AM MAC was used as sedation for this procedure. Dylan Smith DO 06/29/2022 6:17:25 AM This report has been signed electronically.
== END 2022-05-24 10:40 | disposition home or self-care (01) ==
LOC: EN 07:31 → AC 07:31
PROVIDERS: PCP Family Medicine; Referring Provider Family Medicine; Visit Provider Internal Medicine Gastroenterology
PROC: 0DJD8ZZ Inspection of Lower Intestinal Tract, Via Natural or Artificial Opening Endoscopic (ICD-10-PCS; CPT 45378; principal; 2022-05-24 08:40)
DX: K44.9 Diaphragmatic hernia without obstruction or gangrene (principal); Q39.6 Congenital diverticulum of esophagus; K21.00 Gastro-esophageal reflux disease with esophagitis, without bleeding; D13.0 Benign neoplasm of esophagus; K57.30 Diverticulosis of large intestine without perforation or abscess without bleeding; K64.0 First degree hemorrhoids; E66.9 Obesity, unspecified; E78.5 Hyperlipidemia, unspecified; I10 Essential (primary) hypertension; Z79.899 Other long term (current) drug therapy; Z79.82 Long term (current) use of aspirin; Z86.73 Personal history of transient ischemic attack (TIA), and cerebral infarction without residual deficits; Z68.32 Body mass index [BMI] 32.0-32.9, adult
CPT/HCPCS: 43239; 45378; 88305; 88313; J7120; J2405

== ENCOUNTER → 2022-11-09 | Outpatient (CLI) | payer MEDICARE, OTHER, SELFPAY ==
[2022-11-09 09:42] LABS: Basophil# 0.05 X10^3/uL; Basophil% 1.1 % (0-1); Eosinophil# 0.28 X10^3/uL; Hematocrit 39.2 % (37-47); Hemoglobin 12.8 g/dL (12.0-15.0); Lymphocyte % 40.6 % (19-41); Mean Corp Hgb Conc 32.7 g/dL (32-36); Mean Corpuscular Hgb 31.9 pg (27.0-32.0); Mean Corpuscular Volume 97.8 fL (81-99); Mean Platelet Vol. 9.6 fl (6.2-12.0); Monocyte# 0.41 X10^3/uL; Monocyte% 8.8 % (0-10); NRBC Flagged by Analyzer 0 % (0-5); Neutrophil # 2.03 X10^3/uL (2.7-7.7); Neutrophil % 43.3 % (47-70); Platelet Count 260 K/mm3 (150-450); RBC Distribution Width CV 13.7 % (11.6-14.6); Red Blood Count 4.01 M/mm3 (4.2-5.4); White Blood Count 4.7 K/mm3 (4.4-11.0)
[2022-11-09 10:12] LABS: AST(SGOT) 24 U/L (15-37); Alanine Aminotransfer ALT/SGPT 27 U/L (13-56); Albumin, Serum 3.5 g/dL (3.2-5.0); Alkaline Phosphatase 77 U/L (45-117); Anion Gap 4 (5-15); BUN 17 mg/dL (7-18); BUN/Creat Ratio 22.2 RATIO (10-20); Chloride 109 mmol/L (98-107); Cholesterol 196 mg/dL (200); Creatinine, Serum 0.76 mg/dL (0.55-1.02); EST Glomerular Filtration Rate 79 mL/min (>60); Est Glom Filt Rate - Afr Amer 96 mL/min (>60); Globulin 3.6 g/dL (2.2-4.2); Glucose 111 mg/dL (74-106); High Density Lipoprotein 106 mg/dL; Potassium 4.2 mmol/L (3.5-5.1); Protein, Total 7.1 g/dL (6.4-8.2); Sodium Level 143 mmol/L (136-145); Triglycerides 51 mg/dL; Very Low Density Lipoprotein 10 mg/dL (5-40)
== END | disposition home or self-care (01) ==
LOC: LAB 09:08
PROVIDERS: PCP Family Medicine; Referring Provider Family Medicine; Visit Provider Family Medicine
DX: I10 Essential (primary) hypertension (principal); E78.5 Hyperlipidemia, unspecified
CPT/HCPCS: 36415; 80053; 80061; 85025

== ENCOUNTER → 2022-11-09 | Outpatient (CLI) | payer MEDICARE, OTHER, SELFPAY ==
--- NOTE | 2022-11-09 09:53 | BI_ITS ---
MAMMOGRAPHY - BILATERAL SCREENING REASON FOR EXAM: Female, 71 years old. Routine annual screening examination. PERTINENT HISTORY: Non-contributory. TECHNIQUE: Digital bilateral breast snow (3D mammographic acquisition) in the CC and MLO projections. 2-D mediolateral oblique (MLO) and craniocaudad (CC) views of both breasts were obtained. CAD: Full Field Digital Mammography with Computer Added Detection was performed. COMPARISON: Comparison is made with prior study 11/08/2021. FINDINGS: Breast Composition: There are scattered areas of fibroglandular density. There are no dominant masses or suspicious calcifications. Stable small benign appearing bilateral axillary nodes. No other significant abnormalities are identified. There has been no significant change since the prior study. BI/SCRN MAMM (CAD)W/SNOW BILAT IMPRESSION: Stable bilateral screening mammogram. Yearly follow-up mammogram recommended. (A) ASSESSMENT CATEGORY: BIRADS Category 2: Benign. A letter regarding these results will be sent to the patient by the facility within 30 days. Approximately 10% of breast cancers are not detected by mammography. A normal mammogram should not delay biopsy of a clinically suspicious abnormality. [id number] Electronically Signed: Getachew Arteaga MD at 11:17 EST ,
== END | disposition home or self-care (01) ==
LOC: OPBI 09:50
PROVIDERS: PCP Family Medicine; Visit Provider Family Medicine
DX: Z12.31 Encounter for screening mammogram for malignant neoplasm of breast (principal); I10 Essential (primary) hypertension; E78.5 Hyperlipidemia, unspecified
CPT/HCPCS: 36415; 77063; 77067; 80053; 80061; 85025

== ENCOUNTER 2022-11-12 06:56 | Emergency (ER) | payer MEDICARE, OTHER, SELFPAY ==
[2022-11-12 06:57] VITALS: BP 178/87; PULSE 98; RESP 18; TEMP 36.2; O2SAT 98; BMI 32.8
--- NOTE | 2022-11-12 07:17 | VDLE_ITS ---
Reason For Study: Pain RIGHT GSV is normal. CFV is compressible, spontaneous, phasic, competent and demonstrates normal augmentation. FV is compressible, spontaneous, phasic, competent and demonstrates normal augmentation. POP V is compressible, spontaneous, phasic, competent and demonstrates normal augmentation. T/P Trunk is compressible. PTV is compressible. RT PerV is compressible. Procedure This is a venous duplex using B-mode, color flow and spectral Doppler. Exam performed portable in ED. A preliminary report was called and/or faxed to Dr. Zaidi. VL/Venous Duplex US, Unilateral Interpretation Summary Deep veins of the right lower extremity are patent and compressible segmentally . There is no evidence of right lower extremity deep vein thrombosis. The right great sapheno us vein appears patent and compressible segmentally. Ordering Physician: Chito Zaidi Referring Physician: Zafar Spivey Performed By: Adenike Brewer RVT
--- NOTE | 2022-11-12 07:18 | ED.VIS.LOWEX ---
HPI History of Present Illness Chief Complaint: Other, Pain/Inj Detail of Chief Complaint: RLE pain Informant: patient Onset/Context/Timing Onset: Days (3) Context: Gradual Onset Timing: Continuous Quality of Pain: Dull and Aching Location: R lat calf, now posterior thigh Current Severity: Mild Maximum Severity: Mild Worsened by: nothing Relieved by: nothing Associated Symptoms Associated Symptoms: Negative for Parasthesia, Weakness or Loss of Funtion Narrative Narrative: 71-year-old female presenting with discomfort as started spontaneously in her right calf 3 days ago, now today it is bothering her in her right posterior thigh and not in the calf. She denies any swelling. No chest pain, shortness of breath, palpitations, syncope or near syncope or other symptoms. She denies any injury to her leg. She has a history of fibromyalgia and states this feels different than her typical muscular pain. No history of blood clots. No recent travel out of the area, immobilization, hospitalization, or surgery. She takes a baby aspirin daily but no anticoagulants. [facility] Medical History Alcohol use Anxiety Arthritis Atrophic vaginitis Cardiology follow-up encounter Easy bruising Endometrial polyp Epigastric pain Fibromyalgia GERD (gastroesophageal reflux disease) History of echocardiogram History of Holter monitoring History of TIA (transient ischemic attack) Hyperlipidemia LDL goal <130 Hypertension Leg cramps Myalgia and myositis Non-smoker Osteopenia Positive EMELY (antinuclear antibody) Raynaud's disease without gangrene Syncope Wears glasses Wears partial dentures Home Medications amlodipine 5 mg tablet 5 mg PO DAILY raynauds 11/20/20 [History Last Taken 05/24/22] cholecalciferol (vitamin D3) 50 mcg (2,000 unit) capsule 2,000 unit PO DAILY vitamin 11/20/20 [History Last Taken 11/20/20] coenzyme Q10 50 mg chewable tablet 100 mg PO QHS Heart Health 11/20/20 [History Last Taken 11/19/20] glucosamine sulf dipot chlr,msm,chond 550 mg-C 30 mg-souleymane 1 mg capsule 1 cap PO BID Arthritis 11/20/20 [History Last Taken 11/20/20] omega-3 fatty acids-fish oil 684 mg-1,200 mg capsule,delayed release 1 ea PO DAILY Supplement 11/20/20 [History Last Taken 11/20/20] aspirin 81 mg chewable tablet 81 mg PO DAILY@0800 ##30 11/21/20 [Rx Last Taken 05/20/22] pantoprazole 20 mg tablet,delayed release 20 mg PO DAILY #30 tabs 11/21/20 [Rx Last Taken 05/24/22] rosuvastatin 20 mg tablet 20 mg PO QHS #30 tabs 11/21/20 [Rx Last Taken Unknown] Caltrate-Calcitrate & Vitamin D (600mg & 1000IU) 1 tablet PO DAILY 01/16/21 [History Last Taken Unknown] [place]'s wort 300 mg capsule 300 mg PO DAILY 01/16/21 [History Last Taken Unknown] ibuprofen 600 mg tablet 600 mg PO BID PRN Pain 01/16/21 [History Last Taken Unknown] psyllium husk 0.4 gram capsule (Daily Fiber) 7 gm PO DAILY 01/16/21 [History Last Taken Unknown] vit B complex 100 combo no.2 100 mg tablet,extended release (B-100 Complex ER) 1 tablet PO MOWEFR 01/16/21 [History Last Taken Unknown] multivitamin 1 cap PO DAILY 05/18/22 [History Last Taken Unknown] Allergy/AdvReac Type Severity Reaction Status Date / Time Iodinated Contrast Media Allergy Swelling Verified 11/12/22 06:59 naproxen Allergy Rash Verified 11/12/22 06:59 azithromycin [From Zithromax] AdvReac Vomiting Verified 11/12/22 06:59 Family History Brother Abdominal aortic aneurysm Alcoholism Angina at rest Autoimmune disorder defect blood clots Bowel disease Myocardial infarction, Onset Age: 50 Heart disease Hypertension Mother Abdominal aortic aneurysm Angina at rest Myocardial infarction, Onset Age: 42 Heart disease Grandfather Abdominal aortic aneurysm Myocardial infarction, Onset Age: 47 Hypertension Father Alcoholism Myocardial infarction, Onset Age: 62 Grandfather Myocardial infarction, Onset Age: 57 Heart disease Grandmother Angina at rest Cancer Myocardial infarction, Onset Age: 68 Heart disease Hypertension Grandmother No problems noted. Surgical History History of cardiac catheterization History of hysteroscopy History of tonsillectomy Hx of varicose vein stripping Social History Smoking Status: Never smoker Electronic Cigarette Use: not used second hand exposure: No alcohol intake: current alcohol intake frequency: holidays/special occasions only substance use type: does not use ROS ROS ED Constitutional Constitutional ED: Denies chills or fever(s) Cardiovascular Cardiovascular: Denies chest pain, palpitations or pedal edema Respiratory/Chest Respiratory/Chest: Denies dyspnea Musculoskeletal Musculoskeletal: Reports extremity pain; Denies neck pain Integumentary Denies Abrasions, rash or wounds Neurologic Neurologic: Denies paresthesias or weakness EXAM Physical Exam Const Vital Signs: 11/12/22 06:57 11/12/22 07:05 Temperature 97.2 F L Temperature Source Oral Pulse Rate 98 Respiratory Rate 18 Respiratory Effort Normal Respiratory Pattern Normal Blood Pressure 178/87 H Blood Pressure Mean 117 Pulse Ox 98 Oxygen Delivery Method Room Air Positive well nourished, well developed and obese Constitutional Narrative: Well-appearing, pleasant and conversive in full sentences General Appearance ED: well developed and NAD Nutritional Appearance: obese Neck full ROM and supple Back/Spine normal ROM and normal to inspection Extremity normal to inspection and full ROM Extremity Narrative: No edema in right lower extremity. No calf tenderness. No palpable cords. Negative Luis Fernando. Nontender popliteal fossa and thigh including the area where patient is having pain with there are no palpable or visible abnormalities. 2+/4 dorsalis pedis pulse. Neuro oriented x3, no focal motor deficits and no sensory deficits noted Sensorium / Orientation: alert Psych mental status grossly normal and thought process normal Skin no wounds Skin Narrative: Normal color affected area right lower extremity Rashes: no rashes MDM MDM MDM Narrative Medical decision making narrative: We were able to obtain a stat duplex venous ultrasound of the right lower extremity, it is negative for any venous vascular abnormality/clot. Patient reassured, her exam is otherwise benign, she has good arterial perfusion distally, and based on the location of the discomfort this is more likely to be muscular in etiology. Discharge Plan Triage Chief Complaint: Other, Pain/Inj ED Provider: Chito Zaidi Dx/Rx/DC Orders Clinical Impression: Pain of right lower extremity Instructions: ED Pain, Acute, Uncertain Cause Prescriptions: No Action Estefanía's wort 300 mg capsule 300 mg PO DAILY Caltrate-Calcitrate & Vitamin D (600mg & 1000IU) tablet 1 tablet PO DAILY B-100 Complex 100 mg tablet extended release 1 tablet PO MOWEFR psyllium husk [Daily Fiber] 0.4 gram capsule 7 gm PO DAILY amlodipine 5 MG tablet 5 mg PO DAILY omega-3 fatty acids-fish oil 1 EACH capsule,delayed release(DR/EC) 1 ea PO DAILY cholecalciferol (vitamin D3) 2,000 UNIT capsule 2,000 unit PO DAILY coenzyme Q10 50 MG tablet,chewable 100 mg PO QHS glucos sul [id number] 1 EACH capsule 1 cap PO BID aspirin 81 MG tablet,chewable 81 mg PO DAILY@0800 Qty: 30 0RF pantoprazole 20 MG tablet 20 mg PO DAILY Qty: 30 0RF rosuvastatin 20 MG tablet 20 mg PO QHS Qty: 30 0RF ibuprofen 600 mg tablet 600 mg PO BID PRN (Reason: Pain) multivitamin Capsule 1 cap PO DAILY Primary Care Provider: Zafar Spivey Referrals: Zafar Spivey, DO [Primary Care Provider] - 3-5 Days if not improving Activity Restrictions/Additional Instructions: Your ultrasound is normal, showing no vascular abnormalities to explain your pain including blood clots. You have good blood flow and neurologic function throughout your right leg, so unfortunately further testing here in the emergency department will unlikely determine the cause of this, which is probably either in the skin or nearby muscles. Most of the time these pains are self-limiting, if they do not go away then follow-up with your doctor. Dogd-koa-cwaifvf medications and/or topical rubs/patches would be reasonable as needed for pain. Disposition Disposition: Home, Self Care
== END 2022-11-12 08:41 | disposition home or self-care (01) ==
PROVIDERS: Emergency Provider Emergency Medicine; PCP Family Medicine; Visit Provider Emergency Medicine
DX: M79.604 Pain in right leg (principal); I10 Essential (primary) hypertension; E66.9 Obesity, unspecified; K21.9 Gastro-esophageal reflux disease without esophagitis; Z79.82 Long term (current) use of aspirin; Z79.899 Other long term (current) drug therapy; Z86.73 Personal history of transient ischemic attack (TIA), and cerebral infarction without residual deficits
CPT/HCPCS: 93971; 99282

== ENCOUNTER → 2022-11-20 | Outpatient (CLI) | payer MEDICARE, OTHER, SELFPAY ==
[2022-11-20 12:15] LABS: Color, Urine Yellow (Yellow); Glucose, Dipstick Normal (Normal); Ketone-Dipstick Negative (Negative); Leukocyte Esterase-Dipstick Negative /ul (Negative); Nitrite-Dipstick Negative (Negative); Occult Blood-Urine Negative /ul (Negative); Protein-Dipstick Negative (Negative); Specific Gravity, Urine 1.005 (1.002-1.030); Urine Bilirubin Dipstick Negative (Negative); Urine Clarity Sl. Cloudy (Clear); Urine Urobilinogen Normal (Normal)
[2022-11-20 12:22] LABS: Erythrocyte Sedimentation Rate 16 mm/hr (0-30)
[2022-11-20 12:47] LABS: Vitamin B12 657 pg/mL (211-911)
[2022-11-20 13:05] LABS: CPK Total, Creatine Kinase 110 U/L (26-192); CRP < 2.90 mg/L (0.0-3.0)
[2022-11-20 13:49] LABS: Hemoglobin A1c 5.5 % (3.8-5.6)
[2022-11-21 18:50] LABS: ANTINUCLEAR ANTIBODIES DIRECT Negative (Negative)
== END | disposition home or self-care (01) ==
PROVIDERS: PCP Family Medicine; Visit Provider Family Medicine
DX: M79.10 Myalgia, unspecified site (principal); R76.8 Other specified abnormal immunological findings in serum; R73.01 Impaired fasting glucose; E53.8 Deficiency of other specified B group vitamins; R30.0 Dysuria
CPT/HCPCS: 36415; 81002; 82550; 82607; 83036; 85652; 86038; 86140; 86225; 86235

== ENCOUNTER → 2022-11-26 | Outpatient (CLI) | payer MEDICARE, OTHER, SELFPAY ==
--- NOTE | 2022-11-26 16:20 | RAD_ITS ---
STUDY: X-RAY - RIGHT KNEE REASON FOR EXAM: Female, 72 years old. Traumatic right knee pain. TECHNIQUE: 4 view(s) of the knee. COMPARISON: None. FINDINGS: Osteopenia. Small superior patellar spur. Moderate medial compartmental arthrosis with osteophytes. Mild arthrosis of the lateral femorotibial compartment. Lateral tilt and subluxation of the patella with mild arthrosis of the patellofemoral compartment. Small suprapatellar joint effusion. RAD/Knee 4 or More Views IMPRESSION: Osteopenia with superior patellar spur, tricompartmental arthrosis and small joint effusion. No acute abnormality, evidence of erosive changes or chondrocalcinosis. Electronically Signed: Alexandre Smith, at 11:49 EST ,
== END | disposition home or self-care (01) ==
LOC: RAD 16:18
PROVIDERS: PCP Family Medicine; Visit Provider Family Medicine
DX: M25.561 Pain in right knee (principal)
CPT/HCPCS: 73564

== ENCOUNTER → 2023-01-09 | Outpatient (CLI) | payer MEDICARE, OTHER, SELFPAY ==
--- NOTE | 2023-01-09 10:00 | MRI_ITS ---
STUDY: MRI RIGHT KNEE REASON FOR EXAM: Female, 72 years old. Right knee pain with instability. TECHNIQUE: Standardized fat and water weighted pulse sequences were obtained in all 3 orthogonal planes. COMPARISON: Right knee x-rays dated November 26, 2022. FINDINGS: Complex tear of the posterior horn of the medial meniscus extending into the body with extrusion of the body and anterior horn remnants (coronal series 7 images 8-21). Moderate to marked thinning of the articular cartilage of the medial femorotibial compartment with reactive subchondral bone marrow edema and osteophyte formation (coronal series 7 images 10-22). Mild MCL sprain (coronal series 7 image 15). Normal distal semimembranosus, gracilis and semitendinosus tendons. Normal lateral meniscus. Mild thinning of the articular cartilage of the lateral femorotibial compartment (coronal series 7 images 12-19). Normal lateral femoral condyle and tibial plateau. Normal proximal tibiofibular articulation. Normal lateral collateral (fibular) ligament. Normal popliteus tendon. Normal biceps femoris tendon. Normal anterior cruciate ligament (ACL). Normal posterior cruciate ligament (PCL). Lateral tilt and subluxation of the patella with moderate thinning of the articular cartilage of the patellofemoral compartment (axial series 3 images 20-26). Normal medial and lateral patellar retinaculum. Normal quadriceps tendon. Normal patellar tendon. Normal Hoffa''s fat pad. Dlohl-wv-fyloolce joint effusion with lateral plica (axial series 3 images 21-30). Moderate to large septated dissecting popliteal cyst which is ruptured distally (axial series 3 image 14-23). Prepatellar subcutaneous soft tissue edema (sagittal series 4 image 12). The otherwise visualized osseous structures are unremarkable. MRI/Lower Ext Joint Only (Routine) IMPRESSION: Complex tear of the posterior horn of the medial meniscus extending into the body with extrusion of the body and anterior horn remnants. Marked thinning of the articular cartilage of the medial femorotibial compartment as described. Mild MCL sprain. Mild thinning of the articular cartilage of the lateral femorotibial compartment. Lateral tilt and subluxation of the patella with moderate thinning of the articular cartilage of the patellofemoral compartment. Prepatellar subcutaneous soft tissue edema. Moderate to large septated dissecting popliteal cyst rupture distally. Small to moderate-sized joint effusion. Electronically Signed: Alexandre Smith, at 14:02 EDT ,
== END | disposition home or self-care (01) ==
LOC: MRI 09:34
PROVIDERS: PCP Family Medicine; Referring Provider Family Medicine; Visit Provider Family Medicine
DX: M25.561 Pain in right knee (principal)
CPT/HCPCS: 73721

== ENCOUNTER → 2023-04-30 | Outpatient (CLI) | payer MEDICARE, OTHER, SELFPAY ==
--- NOTE | 2023-04-30 08:51 | EKG12_ITS ---
Test Reason : PRE-OP Blood Pressure : / mmHG Vent. Rate : 068 BPM Atrial Rate : 068 BPM P-R Int : 150 ms QRS Dur : 090 ms QT Int : 378 ms P-R-T Axes : 024 -29 -18 degrees QTc Int : 401 ms Normal sinus rhythm Nonspecific ST and T wave abnormality Abnormal ECG Confirmed by DAVID LEWIS, CYRUS ([id number]), writer editor CHET KINNEY ([id number]) on 05/01/2023 8:55:05 AM Referred By: Patricia Lees Confirmed By:CYRUS HERNANDEZ MD
[2023-04-30 09:16] LABS: Absolute Lymphocyte Count 2.12 X10^3/uL (0.83-4.51); Absolute Neutrophil Count 1.9 X10^3/uL (2.0-7.7); Basophil# 0.04 X10^3/uL; Basophil% 0.8 % (0-1); Eosinophil# 0.27 X10^3/uL; Eosinophils% 5.6 % (0-5); Hematocrit 38.9 % (37-47); Hemoglobin 12.8 g/dL (12.0-15.0); Lymphocyte # 2.12 X10^3/ul (0.83-4.51); Lymphocyte % 44.4 % (19-41); Mean Corp Hgb Conc 32.9 g/dL (32-36); Mean Corpuscular Hgb 32.7 pg (27.0-32.0); Mean Corpuscular Volume 99.2 fL (81-99); Mean Platelet Vol. 9.4 fl (6.2-12.0); Monocyte# 0.45 X10^3/uL; Monocyte% 9.4 % (0-10); NRBC Flagged by Analyzer 0 % (0-5); Neutrophil # 1.89 X10^3/uL (2.7-7.7); Neutrophil % 39.6 % (47-70); Platelet Count 249 K/mm3 (150-450); RBC Distribution Width CV 13.8 % (11.6-14.6); RBC Distribution Width SD 50.5 fl (35.1-43.9); Red Blood Count 3.92 M/mm3 (4.2-5.4); White Blood Count 4.8 K/mm3 (4.4-11.0)
[2023-04-30 09:41] LABS: Anion Gap 3 (5-15); BUN 21 mg/dL (7-18); BUN/Creat Ratio 22.4 RATIO (10-20); Calcium,Total 9.3 mg/dL (8.5-10.1); Chloride 107 mmol/L (98-107); Creatinine, Serum 0.94 mg/dL (0.55-1.02); EST Glomerular Filtration Rate 63 mL/min (>60); Est Glom Filt Rate - Afr Amer 76 mL/min (>60); Glucose 104 mg/dL (74-106); Potassium 4.4 mmol/L (3.5-5.1); Sodium Level 141 mmol/L (136-145)
== END | disposition home or self-care (01) ==
LOC: PSN 08:49
PROVIDERS: PCP Family Medicine; Referring Provider Physician Assistant Surgical; Visit Provider Physician Assistant Surgical
DX: Z01.810 Encounter for preprocedural cardiovascular examination (principal)
CPT/HCPCS: 36415; 80048; 85025; 93005

== ENCOUNTER → 2023-05-15 | Outpatient (CLI) | payer MEDICARE, OTHER, SELFPAY ==
[2023-05-15 11:52] LABS: T3 Total - Triiodothyronine 1.02 ng/mL (0.6-1.81); Vitamin D,25 Hydroxy 55.5 ng/mL
[2023-05-15 12:00] LABS: Ferritin 29 ng/mL (8-252); T4 Total, Thyroxin 9.7 ug/dL (4.8-13.9); Thyroid Stim Hormone (TSH) 1.98 uIU/mL (0.358-3.74)
[2023-05-17 12:09] LABS: Vitamin D 1,25-Dihydroxy 34.1 pg/mL (24.8-81.5)
[2023-05-21 08:10] LABS: Zinc, Plasma or Serum 75 ug/dL (44-115)
== END | disposition home or self-care (01) ==
LOC: LAB 11:03
PROVIDERS: PCP Family Medicine; Referring Provider Dermatology; Visit Provider Dermatology
DX: L64.8 Other androgenic alopecia (principal); E55.9 Vitamin D deficiency, unspecified
CPT/HCPCS: 36415; 82306; 82652; 82728; 84436; 84443; 84480; 84630

== ENCOUNTER → 2023-11-12 | Outpatient (CLI) | payer MEDICARE, OTHER, SELFPAY ==
--- NOTE | 2023-11-12 09:06 | BI_ITS ---
MAMMOGRAPHY - BILATERAL SCREENING REASON FOR EXAM: Female, 72 years old. Routine annual screening examination. PERTINENT HISTORY: Non-contributory. TECHNIQUE: Digital bilateral breast snow (3D mammographic acquisition) in the CC and MLO projections. 2-D mediolateral oblique (MLO) and craniocaudad (CC) views of both breasts were obtained. CAD: Full Field Digital Mammography with Computer Added Detection was performed. COMPARISON: Comparison is made with prior study of November 09, 2022 and November 08, 2021. FINDINGS: Breast Composition: There are scattered areas of fibroglandular density. There are no dominant masses or suspicious calcifications. Stable small benign-appearing bilateral axillary lymph nodes. No other significant abnormalities are identified. There has been no significant change since the prior study. BI/SCRN MAMM (CAD)W/SNOW BILAT IMPRESSION: Stable bilateral screening mammogram. Yearly follow-up mammogram recommended. (A) ASSESSMENT CATEGORY: BIRADS Category 2: Benign. A letter regarding these results will be sent to the patient by the facility within 30 days. Approximately 10% of breast cancers are not detected by mammography. A normal mammogram should not delay biopsy of a clinically suspicious abnormality. [id number] Electronically Signed: Getachew Arteaga MD at 9:55 EST ,
[2023-11-12 09:47] LABS: Absolute Lymphocyte Count 2.11 X10^3/uL (0.83-4.51); Absolute Neutrophil Count 1.8 X10^3/uL (2.0-7.7); Basophil# 0.07 X10^3/uL; Basophil% 1.5 % (0-1); Eosinophil# 0.15 X10^3/uL; Eosinophils% 3.3 % (0-5); Hematocrit 40.5 % (37-47); Lymphocyte # 2.11 X10^3/ul (0.83-4.51); Lymphocyte % 46.2 % (19-41); Mean Corp Hgb Conc 32.1 g/dL (32-36); Mean Corpuscular Volume 96.7 fL (81-99); Mean Platelet Vol. 9.8 fl (6.2-12.0); Monocyte# 0.43 X10^3/uL; Monocyte% 9.4 % (0-10); NRBC Flagged by Analyzer 0 % (0-5); Neutrophil # 1.81 X10^3/uL (2.7-7.7); Neutrophil % 39.6 % (47-70); Platelet Count 285 K/mm3 (150-450); RBC Distribution Width CV 13.8 % (11.6-14.6); RBC Distribution Width SD 49.2 fl (35.1-43.9); Red Blood Count 4.19 M/mm3 (4.2-5.4); White Blood Count 4.6 K/mm3 (4.4-11.0)
[2023-11-12 10:09] LABS: ALB/GLOB Ratio 0.9 RATIO (0.9-2.4); AST(SGOT) 20 U/L (15-37); Alanine Aminotransfer ALT/SGPT 28 U/L (13-56); Albumin, Serum 3.7 g/dL (3.2-5.0); Alkaline Phosphatase 90 U/L (45-117); Anion Gap 3 (5-15); BUN 19 mg/dL (7-18); BUN/Creat Ratio 21.2 RATIO (10-20); Calcium,Total 9.6 mg/dL (8.5-10.1); Chloride 110 mmol/L (98-107); Cholesterol 250 mg/dL (200); EST Glomerular Filtration Rate 66 mL/min (>60); Est Glom Filt Rate - Afr Amer 80 mL/min (>60); Globulin 3.9 g/dL (2.2-4.2); Glucose 104 mg/dL (74-106); High Density Lipoprotein 100 mg/dL; Potassium 4.3 mmol/L (3.5-5.1); Protein, Total 7.6 g/dL (6.4-8.2); Sodium Level 141 mmol/L (136-145); Triglycerides 58 mg/dL; Very Low Density Lipoprotein 12 mg/dL (5-40)
== END | disposition home or self-care (01) ==
PROVIDERS: PCP Family Medicine; Referring Provider Family Medicine; Visit Provider Family Medicine
DX: Z12.31 Encounter for screening mammogram for malignant neoplasm of breast (principal); I10 Essential (primary) hypertension
CPT/HCPCS: 36415; 77063; 77067; 80053; 80061; 85025

== ENCOUNTER → 2024-05-11 | Outpatient (CLI) | payer MEDICARE, OTHER, SELFPAY ==
[2024-05-11 10:57] LABS: Absolute Lymphocyte Count 1.98 X10^3/uL (0.83-4.51); Absolute Neutrophil Count 1.8 X10^3/uL (2.0-7.7); Basophil# 0.04 X10^3/uL; Basophil% 0.9 % (0-1); Eosinophil# 0.14 X10^3/uL; Eosinophils% 3.2 % (0-5); Hematocrit 39.4 % (37-47); Hemoglobin 12.9 g/dL (12.0-15.0); Lymphocyte # 1.98 X10^3/ul (0.83-4.51); Lymphocyte % 45.9 % (19-41); Mean Corp Hgb Conc 32.7 g/dL (32-36); Mean Corpuscular Hgb 32.3 pg (27.0-32.0); Mean Corpuscular Volume 98.5 fL (81-99); Mean Platelet Vol. 9.8 fl (6.2-12.0); Monocyte# 0.34 X10^3/uL; Monocyte% 7.9 % (0-10); NRBC Flagged by Analyzer 0 % (0-5); Neutrophil % 41.9 % (47-70); Platelet Count 257 K/mm3 (150-450); RBC Distribution Width CV 13.5 % (11.6-14.6); RBC Distribution Width SD 49.6 fl (35.1-43.9); White Blood Count 4.3 K/mm3 (4.4-11.0)
[2024-05-11 11:39] LABS: ALB/GLOB Ratio 0.9 RATIO (0.9-2.4); AST(SGOT) 19 U/L (15-37); Alanine Aminotransfer ALT/SGPT 24 U/L (13-56); Albumin, Serum 3.6 g/dL (3.2-5.0); Alkaline Phosphatase 91 U/L (45-117); Anion Gap 3 (5-15); BUN 19 mg/dL (7-18); BUN/Creat Ratio 24.3 RATIO (10-20); Calcium,Total 9.5 mg/dL (8.5-10.1); Chloride 107 mmol/L (98-107); Cholesterol 244 mg/dL (200); Creatinine, Serum 0.78 mg/dL (0.55-1.02); EST Glomerular Filtration Rate 77 mL/min (>60); Est Glom Filt Rate - Afr Amer 93 mL/min (>60); Globulin 3.9 g/dL (2.2-4.2); Glucose 94 mg/dL (74-106); High Density Lipoprotein 84 mg/dL; Potassium 3.8 mmol/L (3.5-5.1); Protein, Total 7.5 g/dL (6.4-8.2); Sodium Level 138 mmol/L (136-145); Triglycerides 113 mg/dL; Very Low Density Lipoprotein 23 mg/dL (5-40)
== END | disposition home or self-care (01) ==
LOC: LAB 09:19
PROVIDERS: PCP Family Medicine; Referring Provider Family Medicine; Visit Provider Family Medicine
DX: I10 Essential (primary) hypertension (principal); E78.5 Hyperlipidemia, unspecified
CPT/HCPCS: 36415; 80053; 80061; 85025

== ENCOUNTER → 2024-11-13 | Outpatient (CLI) | payer MEDICARE, OTHER, SELFPAY ==
[2024-11-13 09:44] LABS: Absolute Neutrophil Count 1.6 X10^3/uL (2.0-7.7); Basophil# 0.04 X10^3/uL; Basophil% 0.9 % (0-1); Eosinophil# 0.24 X10^3/uL; Eosinophils% 5.3 % (0-5); Hematocrit 40.6 % (37-47); Hemoglobin 13.1 g/dL (12.0-15.0); Mean Corp Hgb Conc 32.3 g/dL (32-36); Mean Corpuscular Volume 96.2 fL (81-99); Mean Platelet Vol. 9.4 fl (6.2-12.0); Monocyte% 8.9 % (0-10); NRBC Flagged by Analyzer 0 % (0-5); Neutrophil % 35.7 % (47-70); Platelet Count 260 K/mm3 (150-450); RBC Distribution Width CV 13.9 % (11.6-14.6); RBC Distribution Width SD 49.3 fl (35.1-43.9); Red Blood Count 4.22 M/mm3 (4.2-5.4); White Blood Count 4.5 K/mm3 (4.4-11.0)
[2024-11-13 10:05] LABS: Vitamin D,25 Hydroxy 63.8 ng/mL
[2024-11-13 10:11] LABS: ALB/GLOB Ratio 0.8 RATIO (0.9-2.4); AST(SGOT) 21 U/L (15-37); Alanine Aminotransfer ALT/SGPT 28 U/L (13-56); Albumin, Serum 3.4 g/dL (3.2-5.0); Alkaline Phosphatase 91 U/L (45-117); Anion Gap 5 (5-15); BUN 13 mg/dL (7-18); BUN/Creat Ratio 17.1 RATIO (10-20); Calcium,Total 9.2 mg/dL (8.5-10.1); Chloride 106 mmol/L (98-107); Cholesterol 236 mg/dL (200); Creatinine, Serum 0.76 mg/dL (0.55-1.02); EST Glomerular Filtration Rate 79 mL/min (>60); Est Glom Filt Rate - Afr Amer 96 mL/min (>60); Globulin 4.1 g/dL (2.2-4.2); Glucose 92 mg/dL (74-106); High Density Lipoprotein 95 mg/dL; Potassium 3.9 mmol/L (3.5-5.1); Protein, Total 7.5 g/dL (6.4-8.2); Sodium Level 140 mmol/L (136-145); Triglycerides 59 mg/dL; Very Low Density Lipoprotein 12 mg/dL (5-40)
== END | disposition home or self-care (01) ==
LOC: LAB 09:22
PROVIDERS: PCP Family Medicine; Referring Provider Family Medicine; Visit Provider Family Medicine
DX: I10 Essential (primary) hypertension (principal); E78.5 Hyperlipidemia, unspecified; M85.80 Other specified disorders of bone density and structure, unspecified site
CPT/HCPCS: 36415; 80053; 80061; 82306; 85025

== ENCOUNTER → 2024-11-13 | Outpatient (CLI) | payer MEDICARE, OTHER, SELFPAY ==
--- NOTE | 2024-11-13 09:38 | BI_ITS ---
PROCEDURE: SCRN MAMM (CAD)W/SNOW BILAT REASON FOR EXAM: F, Age 73 y/o, for annual screening mammogram. No family history of breast cancer. TECHNIQUE: Bilateral screening digital breast tomosynthesis with 2D and 3D images. Computer aided detection. COMPARISON: 11/12/2023 FINDINGS: There are scattered areas of fibroglandular density. No suspicious masses, areas of developing architectural distortion, or suspicious calcifications. BI/SCRN MAMM (CAD)W/SNOW BILAT IMPRESSION: There is no evidence of malignancy in either breast. BI-RADS 1: NEGATIVE. RECOMMEND ANNUAL MAMMOGRAPHIC SCREENING. Follow-up code: Routine Follow-up The patient will be notified of the results by letter. Reading Location: [id number]
== END | disposition home or self-care (01) ==
LOC: OPBI 09:36
PROVIDERS: PCP Family Medicine; Referring Provider Family Medicine; Visit Provider Family Medicine
DX: Z12.31 Encounter for screening mammogram for malignant neoplasm of breast (principal)
CPT/HCPCS: 77063; 77067

== ENCOUNTER → 2024-12-10 | Outpatient (CLI) | payer MEDICARE, OTHER, SELFPAY ==
--- NOTE | 2024-12-10 08:38 | BD_ITS ---
PROCEDURE: DEXA BONE DENSITY STUDY 12/10/2024 REASON FOR EXAM: F, age 74 y/o . Postmenopausal. TECHNIQUE: DXA scan of the lumbar spine and left hip, using make and model. REFERENCE LINKS: ISCD Adult Positions COMPARISON: None FINDINGS: Lumbar Spine (L1-L4): g/cm2 (0.766)/T-score (-2.6)/Z-score (-0.3) findings are suggestive of osteoporotic with a high fracture risk. Left Femur Total: g/cm2 (0.775)/T-score (-1.4)/Z-score (0.2) Left Femoral Neck: g/cm2 (0.708)/T-score (-1.3)/Z-score (0.6) Right Femur Total: g/cm2 (0.745)/T-score (-1.6)/Z-score (0.0) Right Femoral Neck: g/cm2 (0.665)/T-score (-1.7)/Z-score (0.3) BD/Dexa Bone Density Study IMPRESSION: The patient is considered osteoporotic as outlined below according to [employer] (WHO) criteria with a high fracture risk. Recommend follow-up as clinically warranted. Reading Location: [place] [id number]
== END | disposition home or self-care (01) ==
LOC: OPBD 08:37
PROVIDERS: PCP Family Medicine; Referring Provider Family Medicine; Visit Provider Family Medicine
DX: M85.851 Other specified disorders of bone density and structure, right thigh (principal); M85.852 Other specified disorders of bone density and structure, left thigh
CPT/HCPCS: 77080

== ENCOUNTER → 2025-01-01 | Outpatient (CLI) | payer MEDICARE, OTHER, SELFPAY | END | disposition home or self-care (01) | LOC: LABSPEC 12:02 | PROVIDERS: PCP Family Medicine; Visit Provider Family Medicine | DX: R35.0 Frequency of micturition (principal) | CPT/HCPCS: 87077; 87086; 87088; 87186 ==

== ENCOUNTER 2025-03-10 02:00 | Observation (INO) | payer MEDICARE, OTHER, SELFPAY ==
[2025-03-10] VITALS (11 sets, daily range): BP systolic 131–160; BP diastolic 61–79; PULSE 60–88; RESP 16–21; TEMP 36.3–36.7; O2SAT 96–100; BMI 30.4; BMI 30.3
--- NOTE | 2025-03-10 02:27 | EKG12_ITS ---
Test Reason : CP ADMIT Blood Pressure : */* mmHG Vent. Rate : 65 BPM Atrial Rate : 65 BPM P-R Int : 176 ms QRS Dur : 92 ms QT Int : 384 ms P-R-T Axes : 44 -24 -5 degrees QTcB Int : 399 ms Normal sinus rhythm Nonspecific ST and T wave abnormality Abnormal ECG When compared with ECG of 10-Mar-2025 02:06, MANUAL COMPARISON REQUIRED DATA IS UNCONFIRMED Confirmed by DAVID LEWIS, CYRUS ([id number]), production editor CHET KINNEY ([id number]) on 03/11/2025 5:36:33 AM Referred By: Confirmed By: CYRUS HERNANDEZ MD
[2025-03-10 02:34] LABS: Absolute Lymphocyte Count 3.65 X10^3/uL (0.83-4.51); Absolute Neutrophil Count 2.6 X10^3/uL (2.0-7.7); Basophil# 0.04 X10^3/uL; Basophil% 0.6 % (0-1); Eosinophil# 0.25 X10^3/uL; Eosinophils% 3.5 % (0-5); Hematocrit 38.1 % (37-47); Lymphocyte # 3.65 X10^3/ul (0.83-4.51); Lymphocyte % 51.3 % (19-41); Mean Corp Hgb Conc 34.1 g/dL (32-36); Mean Corpuscular Hgb 32.7 pg (27.0-32.0); Mean Platelet Vol. 9.7 fl (6.2-12.0); Monocyte# 0.61 X10^3/uL; Monocyte% 8.6 % (0-10); NRBC Flagged by Analyzer 0 % (0-5); Neutrophil # 2.55 X10^3/uL (2.7-7.7); Neutrophil % 35.9 % (47-70); Platelet Count 277 K/mm3 (150-450); Red Blood Count 3.97 M/mm3 (4.2-5.4); White Blood Count 7.1 K/mm3 (4.4-11.0)
--- NOTE | 2025-03-10 02:50 | RAD_ITS ---
PROCEDURE: CHEST PA AND LATERAL 03/10/2025 REASON FOR EXAM: CHEST PAIN TECHNIQUE: CHEST PA AND LATERAL COMPARISON: 11/20/2020. FINDINGS: The lungs are expanded. There is no demonstrated parenchymal abnormality. There is no demonstrated pleural abnormality. Enlarged cardiac silhouette. Normal mediastinum and luis. Normal visualized pulmonary arteries. Atheromatous plaques of the visualized aortic arch and descending thoracic aorta. Diffuse spondylosis of the visualized thoracic spine. Normal visualized ribs, clavicles. Degenerative joint disease. There is no demonstrated abnormality of the visualized soft tissue structures of the upper abdomen. RAD/Chest PA and Lateral IMPRESSION: No evidence for acute abnormality. Reading Location: [facility]
--- OUTSIDE RECORDS SUMMARY | 2025-03-10 03:06 | XMS RPT_ITS | CCD ---
Author Organization [facility] Care Team Providers Care [employer] Agent Name Role Phone HILLS, IRLANDA Primary Care Unavailable HILLS, IRLANDA Consulting Unavailable HILLS, IRLANDA Attending Unavailable HILLS, IRLANDA Admitting Unavailable PROVIDER, UNKNOWN Consulting Unavailable HILLS, IRLANDA Primary Care Unavailable HILLS, IRLANDA Consulting Unavailable HILLS, IRLANDA Attending Unavailable HILLS, IRLANDA Admitting Unavailable PROVIDER, UNKNOWN Consulting Unavailable SELF, SELF Referring Unavailable JARETT COTA Primary Care Unavailable Dr. Zafar Spivey Primary Care Provider [phone] Dr. Zafar Spivey Referring Provider [phone] Charly SENIOR, DESK LIEUTENANT-C Katerina Jones Attending Provider [phone] Dr. Dylan Smith Attending Provider [phone] Dr. Dylan Smith Other Provider [phone] Zafar Spivey Primary Care Provider [phone] Dr. Kevin Rooney Attending Provider [phone] Zafar Spivey Primary Care Provider [phone] Dr. Kevin Rooney Attending Provider [phone] Chito Zaidi Referring Provider Dr. Zafar Spivey Primary Care Provider [phone] Dr. Zafar Spivey Referring Provider Dr. Dylan Smith Attending Provider [phone] Dr. Zafar Spivey DO Primary Care Provider [phone] Dr. Zafar Spivey DO Attending Provider [phone] Dr. Zafar Spivey DO Referring Provider [phone] Zafar Spivey Primary Care Unavailable Zafar Spivey Attending Unavailable Zafar Spivey Referring Unavailable PatricZafar Primary Care Unavailable Zafar Spivey Attending Unavailable Zafar Spivey Primary Care Unavailable Zafar Spivey Attending Unavailable Zafar Spivey Referring Unavailable Zafar Spivey Primary Care Unavailable Zafar Spivey Attending Unavailable Zafar Spivey Referring Unavailable PatricZafar Primary Care Unavailable PatricZafar Attending Unavailable Zafar Spivey Referring Unavailable Allergies Allergy Classification Reported Allergen(s) Allergy Type Date of Onset Reaction(s) Facility (1 source) Azithromycin Drug Allergy [facility] (1 source) Iodine Drug Allergy [facility] (1 source) Naproxen Drug Allergy [facility] (13 sources) Azithromycin Drug Allergy 2 Vomiting [facility] (13 sources) Naproxen Drug Allergy 2 Rash [facility] (14 sources) Iodinated Contrast Media; Translations: [Iodinated Contrast Media] Allergy to substance 2 Swelling [facility] (3 sources) celecoxib Drug Allergy 4 Hair loss [facility] (3 sources) rosuvastatin Drug Allergy 4 Myalgia [facility] (1 source) Azithromycin Drug Allergy 3 [facility] (1 source) celecoxib Drug Allergy 4 [facility] (1 source) Naproxen Drug Allergy 3 [facility] (1 source) rosuvastatin Drug Allergy 4 [facility] Repository Medications Current Medications Medication Drug Class(es) Dates Sig (Normalized) Sig (Original) amLODIPine 5 mg oral tablet (13 sources) Dihydropyridine Calcium Channel Wilver Start: 2020 take 1 tablet by mouth once daily Amlodipine 5 MG tablet Active 5 mg PO DAILY 2020 1:00am Ascorbic Acid / Collagen (3 sources) Vitamin C Start: 10-14-2023 Ascorbic Acid-Collagen (Collagen Skin Renewal) 30-833.3 mg tablet Active {tbl} PO October 14, 2023 1:00am Start: 10-14-2023 Ascorbic Acid- Collagen (Collagen Skin Renewal) 30-833.3 mg tablet Active TABLET PO October 14, 2023 12:00am aspirin 81 mg chewable tablet (13 sources) Platelet Aggregation Inhibitor, Nonsteroidal Anti-inflammatory Drug Start: 11-21-2020 take 1 tablet by mouth once daily Aspirin 81 MG tablet,chewable Active 81 mg PO DAILY@0800 30 November 21, 2020 1:00am Caltrate-Calci trate & Vitamin D (600mg & 1000IU) (11 sources) Start: 01-16-2021 take 1 tablet by mouth once daily Caltrate-Calcitrate & Vitamin D (600mg & 1000IU) Active 1 TABLET PO DAILY January 15, 2021 11:00pm Start: 01-16-2021 take 1 tablet by desiree th once daily Caltrate-Calcitrate & Vitamin D (600mg & 1000IU) Active 1 TABLET PO DAILY January 16, 2021 12:00am Caltrate-Calcitrate & Vitamin D (600mg & 1000IU) tablet (2 sources) Start: 01-16-2021 Caltrate-Calcitrate & Vitamin D (600mg & 1000IU) tablet Active 1 {tbl} PO DAILY January 16, 2021 12:00am cholecalciferol 0.05 mg oral capsule (13 sources) Vitamin D Start: 2020 take 1 capsule by mouth once daily Cholecalciferol (Vitamin D3) 2,000 UNIT capsule Active 2000 U PO DAILY 2020 1:00am diclofenac sodium 0.01 mg/mg topical gel (3 sources) Nonsteroidal Anti-inflammato ry Drug Start: 10-14-2023 apply 2 g topically once Diclofenac Sodium 1 % gel Active 2 g TOPICAL ONCE October 14, 2023 1:00am apply to single elbow, wrist or hand; for hand includes palm/fingers/back of hand Start: 10-14-2023 apply 2 g topically once Diclo fenac Sodium Active 2 GM TOPICAL ONCE October 14, 2023 12:00am apply to single elbow, wrist or hand; for hand includes palm/fingers/back of hand Glucos Sul 7dsw-Qwl-Xsqwm-C-Mn (11 sources) Start: 2020 take 1 capsule by mouth twice daily Glucos Sul 7fey-Axn-Ifqvl-C-Mn Active 1 CAP PO TWICE A DAY 2020 12:00am Start: 2020 take 1 capsule by [facility] twice daily Glucos Sul 3nly-Dvs-Ovgys-C-Mn Active 1 CAP PO TWICE A DAY 2020 1:00am Glucos Sul 9ris-Nsl-Hhnym-C-Mn 1 EACH capsule (2 sources) Start: 2020 take 1 capsule by mouth twice daily Glucos Sul 2tvk-Bgk-Xjbhe-C-Mn 1 EACH capsule Active 1 NMA PO TWICE A DAY 2020 1:00am ibuprofen 600 mg oral tablet (20 sources) Nonsteroidal Anti-inflammator y Drug Start: 2020 End: 01-16-2021 take 1 tablet by mouth twice daily as needed for pain Ibuprofen 600 mg tablet Active 600 mg PO TWICE A DAY as needed for Pain January 16, 2021 10:57am Start: 2020 End: 01-16-2021 Ibuprofen 600 MG tablet Disc ontinued 1 {tbl} PO AT BEDTIME 2020 1:00am January 16, 2021 11:05am Start: 2020 End: 01-16-2021 take 600 mg by mouth at bedtime Ibuprofen Active 600 M G PO AT BEDTIME January 16, 2021 10:57am Multivitamin Capsule (2 sources) Start: 05-18-2022 Multivitamin C apsule Active 1 NMA PO DAILY May 18, 2022 12:00am Multivitamin preparation (10 sources) Start: 05-18-2022 take 1 capsule by mouth once daily Multivitamin Active 1 CAP PO DAILY May 17, 2022 11:00pm Start: 05-18-2022 take 1 capsule by [facility] once daily Multivitamin Active 1 CAP PO DAILY May 18, 2022 12:00am Scobey-3 Fatty Acids-Fish Oil (11 sources) Start: 2020 Scobey-3 Fatty Acids-Fish Oil Active 1 EACH PO DAILY 2020 12:00am Start: 2020 Scobey-3 Fatty Acids-Fish Oil Active 1 EACH PO DAILY 2020 1:00am Scobey-3 Fatty Acids-Fish Oil 1 EACH capsule,delayed release(DR/EC) (2 sources) Start: 2020 Scobey-3 Fatty Acids-Fish Oil 1 EACH capsule,delayed release(DR/EC) Active 1 NMA PO DAILY 2020 1:00am pantoprazole 20 mg delayed release oral tablet (13 sources) Proton Pump Inhibitor Start: 11-21-2020 take 1 tablet by mouth once daily Pantoprazole 20 MG tablet Active 20 mg PO DAILY November 21, 2020 1:00am psyllium 400 mg oral capsule (13 sources) Start: 01-16-2021 take 1 capsule by mouth once daily Psyllium Husk (Daily Fiber) 0.4 gram capsule Active 7 g PO DAILY January 16, 2021 12:00am rosuvastatin calcium 20 mg oral tablet (20 sources) HMG-CoA Reductase Inhibitor Start: 11-21-2020 take 1 tablet by mouth at bedtime Rosuvastatin 20 MG tablet Active 20 mg PO AT BEDTIME November 21, 2020 1:00am Start: 2020 End: 11-21-2020 take 1 tablet by mouth once daily Rosuvastatin 5 MG tablet Discontinued 5 mg PO DAILY 2020 1:00am November 21, 2020 12:34pm Estefanía's Wort (13 sources) Start: 01-16-2021 take 1 capsule by mo uth once daily [place]'s Wort 300 mg capsule Active 300 mg PO DAILY January 16, 2021 12:00am Start: 01-16-2021 take 300 mg by mouth once tata y [place]'s Wort Active 300 MG PO DAILY January 15, 2021 11:00pm Start: 01-16-2021 take 300 mg by mouth once tata y [place]'s Wort Active 300 MG PO DAILY January 16, 2021 12:00am Turmeric extract (6 sources) Start: 10-14-2023 Turmeric (Bulk ) (Curcumin) 95 % powder Active NMA October 14, 2023 1:00am Start: 10-14-2023 Turmeric 400 m g capsule Active mg PO October 14, 2023 1:00am Start: 10-14-2023 Turmeric (Bulk ) (Curcumin) 95 % powder Active EACH October 14, 2023 12:00am Start: 10-14-2023 Turmeric Activ e MG PO October 14, 2023 12:00am ubidecarenone 50 mg chewable tablet (13 sources) Start: 2020 take 10 tablets by mouth once at bedtime Coenzyme Q10 50 MG tablet,chewable Active 100 mg PO AT BEDTIME 2020 1:00am Vit B Complex 100 Combo No.2 (B-100 Complex) 100 mg tablet extended release (13 sources) Start: 01-16-2021 Vit B Complex 100 Combo No.2 (B-100 Complex) 100 mg tablet extended release Active 1 {tbl} PO MOWEFR January 16, 2021 12:00am Start: 01-16-2021 Vit B Complex 100 Combo No.2 (B-100 Complex) 100 mg tablet extended release Active 1 TABLET PO MOWEFR January 15, 2021 11:00pm Start: 01-16-2021 Vit B Complex 100 Combo No.2 (B-100 Complex) 100 mg tablet extended release Active 1 TABLET PO MOWEJanuary 16, 2021 12:00am Start: 01-16-2021 take 1 tablet by mouth once da basilia Vit B Complex 100 Combo No.2 (B-100 Complex) 100 mg tablet extended release Active 1 TABLET PO DAILY January 16, 2021 12:00am Completed/Discontinued Medications Medication Drug Class(es) Dates Sig (Normalized) Sig (Original) calcium citrate 1500 mg / cholecalciferol 250 unt oral tablet (13 sources) Vitamin D Start: 2020 End: 01-16-2021 Calcium Citrate-Vitamin D3 1 EACH tablet Discontinued 1 NMA PO AT BEDTIME 2020 1:00am January 16, 2021 11:03am Start: 2020 End: 01-16-2021 Calcium Citrate-Vitamin D3 D iscontinued 1 EACH PO AT BEDTIME 2020 12:00am January 16, 2021 10:03am Vitamins T1-I0-Q2-I60-Qybiqq se (11 sources) Start: 2020 End: 01-16-2021 Vitamins U0-B6-S9-P49-Gqtiqr se Discontinued 1 EACH PO DAILY 2020 12:00am January 16, 2021 10:02am Start: 2020 End: 01-16-2021 Vitamins U2-M5-U8-S65-Rkdwpt se Discontinued 1 EACH PO DAILY 2020 1:00am January 16, 2021 11:02am Vitamins Q0-L8-P4-T41-Qajrqpza 1 EACH tablet (2 sources) Start: 2020 End: 01-16-2021 take 1 tablet by mouth once daily Vitamins D7-K3-V7-V22-Wnkqslgk 1 EACH tablet Discontinued 1 NMA PO DAILY 2020 1:00am January 16, 2021 11:02am Problems Problem Classification Problem Date Documented Date Episodic/Chronic Conditions associated with dizziness or vertigo (13 sources) Vertigo; Translations: [Dizziness and giddiness] 2020 Episodic Comment on above: Acute on chronic Disorders of lipid metabolism (13 sources) Hyperlipidemia; Translations: [Hyperlipidemia, unspecified] 01-16-2021 Chronic Esophageal disorders (16 sources) Gastroesophageal reflux disease; Translations: [Gastro-esophageal reflux disease without esophagitis] Chronic Essential hypertension (14 sources) Hypertensive disorder; Translations: [Essential (primary) hypertension] Onset: 11-25-2024 2020 Chronic Genitourinary symptoms and ill-defined conditions (1 source) Frequency of micturition; Translations: [Frequency of micturition] Onset: 01-06-2025 Episodic Malaise and fatigue (13 sources) Left hemiparesis; Translations: [Weakness] 04-18-2021 Episodic Nutritional deficiencies (13 sources) Vitamin D deficiency; Translations: [Vitamin D deficiency, unspecified] 2020 Chronic Other bone disease and musculoskeletal deformities (13 sources) Costal chondritis; Translations: [Chondrocostal junction syndrome [Tietze]] 02-16-2022 Episodic Other bone disease and musculoskeletal deformities (2 sources) Chondrocostal junction syndrome [Tietze]; Translations: [Tietze's disease] Episodic Other bone disease and musculoskeletal deformities (1 source) Other specified disorders of bone density and structure, right thigh; Translations: [Other specified disorders of bone density and structure, right thigh] Onset: 12-17-2024 Episodic Other circulatory disease (13 sources) Raynaud's phenomenon; Translations: [Raynaud's syndrome without gangrene] 2020 Chronic Other circulatory disease (13 sources) History of transient ischemic attack; Translations: [Personal history of transient ischemic attack (TIA), and cerebral infarction without residual deficits] 05-18-2022 Episodic Comment on above: 10 YRS AGO. NEGATIVE 2020 Other connective tissue disease (11 sources) Pain in right lower limb; Translations: [Pain in right leg] 11-12-2022 Episodic Other screening for suspected conditions (not mental disorders or infectious disease) (14 sources) Patient encounter status; Translations: [Encounter for screening for malignant neoplasm of colon] Onset: 11-26-2024 05-14-2022 Episodic Unclassified (15 sources) Colonoscopy planned; Translations: [Colonoscopy planned] Results Test Name Value Interpretation Reference Range Facility Urine Cultureon 01-04-2025 [facility] Escherichia coli [place] Count 11,000-25,000 Proteus mirabilis Proteus mirabilis Escherichia coli: REACTION Ampicillin Islt CLEVE 8 S Ampicillin+Sulbac Islt CLEVE 4 Cefepime Islt CLEVE <=0.12 S cefTRIAXone Islt CLEVE <=0.25 S Ciprofloxacin Islt CLEVE <=0.06 S B-Lactamase Extended Susc Islt NEG Gentamicin Islt CLEVE <=1 S levoFLOXacin Islt CLEVE <=0.12 S Meropenem Islt CLEVE <=0.25 S Nitrofurantoin Islt CLEVE <=16 S Pip+Tazo Islt CLEVE <=4 S TMP SMX Islt CLEVE <=20 S Proteus mirabilis: REACTION Ampicillin Islt CLEVE <=2 S Ampicillin+Sulbac Islt CLEVE <=2 Cefepime Islt CLEVE <=0.12 S cefTRIAXone Islt CLEVE <=0.25 S Ciprofloxacin Islt CLEVE <=0.06 S Gentamicin Islt CLEVE <=1 S levoFLOXacin Islt CLEVE <=0.12 S Meropenem Islt CLEVE 0.5 S Nitrofurantoin Islt CLEVE 128 R Pip+Tazo Islt CLEVE <=4 S TMP SMX Islt CLEVE <=20 S Normal [facility] Comment on above: Performed By: #### M 100.5932 #### [facility] Laboratory [address] [place], [place], [id number] Urine cultureOrdered By: Marisable Spivey on 01-01-2025 Bacteria identified Cx Nom (U) Escherichia coli Abnormal [facility] Bacteria identified Cx Nom (U) Proteus mirabilis Abnormal [facility] Bone density reportOrdered B y: Getachew Arteaga on 12-10-2024 Study report Skeletal system DXA [facility] Imaging Services [address] [place] [address] Dexa Bone Density Study MR#: [id number] Acct: [id number] Name: DOMINIC GARCIA Rep #: [id number] : 1950 F 74 From: Bakari Arteaga MD PCP: Dr. Zafar Spivey DO Status: REG CLI Study:Dexa Bone Density Study Date of Exam: 12/10/24 Exam# [id number] Ordering Dr: Zafar Spivey DO PROCEDURE: DEXA BONE DENSITY STUDY 12/10/2024 REASON FOR EXAM: F, age 74 y/o . Postmenopausal. TECHNIQUE: DXA scan of the lumbar spine and left hip, using make and model. REFERENCE LINKS: ISCD Adult Positions COMPARISON: None FINDINGS: Lumbar Spine (L1-L4): g/cm2 (0.766)/T-score (-2.6)/Z-score (-0.3) findings are suggestive of osteoporotic with a high fracture risk. Left Femur Total: g/cm2 (0.775)/T-score (-1.4)/Z-score (0.2) Left Femoral Neck: g/cm2 (0.708)/T-score (-1.3)/Z-score (0.6) Right Femur Total: g/cm2 (0.745)/T-score (-1.6)/Z-score (0.0) Right Femoral Neck: g/cm2 (0.665)/T-score (-1.7)/Z-score (0.3) BD/Dexa Bone Density Study IMPRESSION: The patient is considered osteoporotic as outlined below according to World Lexa Organization (WHO) criteria with a high fracture risk. Recommend follow-up as clinically warranted. Reading Location: [place] [address] CC: Dr. Zafar Spivey DO ~ Mechanic Foreman: Signed [facility] Dexa Bone Density Studyon Dexa Bone Density Study [facility] Imaging Services [address] [place], [place] [address] Dexa Bone Density Study MR#: [id number] Acct: [id number] Name: DOMINIC GARCIA Rep #: [id number] : 1950 F 74 From: Getachew acevedo MD PCP: Dr. Zafar Spivey DO Status: REG CLI Study: Dexa Bone Density Study Date of Exam: 12/10/24 Exam# [id number] Ordering Dr: Zafar Spivey DO PROCEDURE: DEXA BONE DENSITY STUDY 12/10/2024 REASON FOR EXAM: F, age 74 y/o . Postmenopausal. TECHNIQUE: DXA scan of the lumbar spine and left hip, using make and model. REFERENCE LINKS: ISCD Adult Positions COMPARISON: None FINDINGS: Lumbar Spine (L1-L4): g/cm2 (0.766)/T-score (-2.6)/Z-score (-0.3) findings are suggestive of osteoporotic with a high fracture risk. Left Femur Total: g/cm2 (0.775)/T-score (-1.4)/Z-score (0.2) Left Femoral Neck: g/cm2 (0.708)/T-score (-1.3)/Z-score (0.6) Right Femur Total: g/cm2 (0.745)/T-score (-1.6)/Z-score (0.0) Right Femoral Neck: g/cm2 (0.665)/T-score (-1.7)/Z-score (0.3) BD/Dexa Bone Density Study IMPRESSION: The patient is considered osteoporotic as outlined below according to World Lexa Organization (WHO) criteria with a high fracture risk. Recommend follow-up as clinically warranted. Reading Location: [place] [address] CC: Dr. Zafar Spivey DO Mechanic Foreman: Signed Normal [facility] [id number]-Vgwbeny DOrdered By: Karen Spivey on 11-13-2024 Vitamin D 25-Hydroxy 63.8 ng/mL [facility] Comment on above: Vitamin D 25(OH) Sta tus Range Deficiency <20 ng/mL (50nmol/L) Insufficiency 20 - 30 ng/mL (50 - 75 nmol/L) Sufficiency 30 - 100 ng/mL (75 - 250 nmol/L) Toxicity >100 ng/mL (>250 nmol/L) Absolute neutrophil countOrd ered By: Zafar Patric on 11-13-2024 Neutrophils (Bld) [#/Vol] 1.6 10*3/uL Low 2.0-7.7 [facility] Albumin to globulin ratioOrd ered By: Zafar Patric on 11-13-2024 Albumin/Globulin [Mass ratio] 0.8 {ratio} Low 0.9-2.4 [facility] Basophil percentageOrdered B y: Zafar Spivey on 11-13-2024 Basophils/100 WBC (Bld) 0.9 % 0-1 [facility] Bilirubin, totalOrdered By: Zafar Patric on 11-13-2024 Bilirubin [Mass/Vol] 0.90 mg/dL 0.20-1.00 [facility] Comment on above: For patients on eltr ombopag therapy, use of Dimension [place] TBIL is not recommended. Blood urea nitrogen (BUN)/cr eatinine ratioOrdered By: Zafar Patric on 11-13-2024 Urea nitrogen/Creatinine [Mass ratio] 17.1 mg/mg 10-20 [facility] CBC W/Diff, Automatedon 10-25 Absolute Lymph 2.20 X10 3/uL Normal 0.83-4.51 [facility] Comment on above: Performed By: #### L 506.1000, L500.4050, L100.0100, L500.4100 #### [facility] Laboratory [address] [place], [address] Absolute Neut 1.6 X10 3/uL Low 2.0-7.7 [facility] Comment on above: Performed By: #### L 506.1000, L500.4050, L100.0100, L500.4100 #### [facility] [address] [place], [address] Basophils/100 WBC (Bld) 0.9 % Normal 0-1 [facility] Comment on above: Performed By: #### L 506.1000, L500.4050, L100.0100, L500.4100 #### [facility] [address] [place], [address] Eosinophils/100 WBC (Bld) 5.3 % High 0-5 [facility] Comment on above: Performed By: #### L 506.1000, L500.4050, L100.0100, L500.4100 #### [facility] [address] [place], [address] Erythrocyte distribution width (RBC) [Ratio] 13.9 % Normal 11.6-14.6 [facility] Comment on above: Performed By: #### L 506.1000, L500.4050, L100.0100, L500.4100 #### [facility] [address] [place], [address] Hematocrit (Bld) [Volume fraction] 40.6 % Normal 37-47 [facility] Comment on above: Performed By: #### L 506.1000, L500.4050, L100.0100, L500.4100 #### [facility] [address] [place], [address] Hemoglobin (Bld) [Mass/Vol] 13.1 g/dL Normal 12.0-15.0 [facility] Comment on above: Performed By: #### L 506.1000, L500.4050, L100.0100, L500.4100 #### [facility] [address] [place], [address] IG% 0.200 Normal 0.0-0.9 [facility] Comment on above: Result Comment: IG% - Immature Granulocytes (promyelocytes, myelocytes and metamyelocytes) > 1% indicates that a LEFT SHIFT is Present. Performed By: #### L 506.1000, L500.4050, L100.0100, L500.4100 #### [facility] [address] [place], [address] Lymphocytes/100 WBC (Bld) 49.0 % High 19-41 [facility] Comment on above: Performed By: #### L 506.1000, L500.4050, L100.0100, L500.4100 #### [facility] [address] [place], [address] MCH (RBC) [Entitic mass] 31.0 pg Normal 27.0-32.0 [facility] Comment on above: Performed By: #### L 506.1000, L500.4050, L100.0100, L500.4100 #### [facility] [address] [place], [address] MCHC (RBC) [Mass/Vol] 32.3 g/dL Normal 32-36 [facility] Comment on above: Performed By: #### L 506.1000, L500.4050, L100.0100, L500.4100 #### [facility] [address] [place], [address] MCV (RBC) [Entitic vol] 96.2 fL Normal 81-99 [facility] Comment on above: Performed By: #### L 506.1000, L500.4050, L100.0100, L500.4100 #### [facility] [address] [place], [address] Monocytes/100 WBC (Bld) 8.9 % Normal 0-10 [facility] Comment on above: Performed By: #### L 506.1000, L500.4050, L100.0100, L500.4100 #### [facility] [address] [place], [address] Neutrophils/100 WBC (Bld) 35.7 % Low 47-70 [facility] Comment on above: Performed By: #### L 506.1000, L500.4050, L100.0100, L500.4100 #### [facility] [address] [place], [address] Nucleated RBC (Bld) [#/Vol] 0 10*3/uL Normal 0-5 [facility] Comment on above: Performed By: #### L 506.1000, L500.4050, L100.0100, L500.4100 #### [facility] [address] [place], [address] Platelet mean volume (Bld) [Entitic vol] 9.4 fL Normal 6.2-12.0 [facility] Comment on above: Performed By: #### L 506.1000, L500.4050, L100.0100, L500.4100 #### [facility] [address] [place], [address] Platelets (Bld) [#/Vol] 260 10*3/uL Normal 150-450 [facility] Comment on above: Performed By: #### L 506.1000, L500.4050, L100.0100, L500.4100 #### [facility] [address] [place], [address] RBC (Bld) [#/Vol] 4.22 10*6/uL Normal 4.2-5.4 [facility] Comment on above: Performed By: #### L 506.1000, L500.4050, L100.0100, L500.4100 #### [facility] [address] [place], [address] RDW SD 49.3 fl High 35.1-43.9 [facility] Comment on above: Performed By: #### L 506.1000, L500.4050, L100.0100, L500.4100 #### [facility] [address] [place], [address] WBC (Bld) [#/Vol] 4.5 10*3/uL Normal 4.4-11.0 [facility] Comment on above: Performed By: #### L 506.1000, L500.4050, L100.0100, L500.4100 #### [facility] [address] [place], [address] Carbon dioxide measurementOr dered By: Zafar Spivey on 11-13-2024 CO2 [Moles/Vol] 29.0 mmol/L 21.0-32.0 [facility] Chloride measurementOrdered By: Zafar Spivey on 11-13-2024 Chloride [Moles/Vol] 106 mmol/L 98-107 [facility] Comprehensive Metabolic Prof ilon 11-13-2024 Albumin [Mass/Vol] 3.4 g/dL Normal 3.2-5.0 [facility] Comment on above: Performed By: #### L 506.1000, L500.4050, L100.0100, L500.4100 #### [facility] [address] [place], [address] Albumin/Globulin [Mass ratio] 0.8 {ratio} Low 0.9-2.4 [facility] Comment on above: Performed By: #### L 506.1000, L500.4050, L100.0100, L500.4100 #### [facility] [address] [place], [address] ALK P 91 U/L Normal 45-117 [facility] Comment on above: Performed By: #### L 506.1000, L500.4050, L100.0100, L500.4100 #### [facility] [address] [place], [address] ALT [Catalytic activity/Vol] 28 U/L Normal 13-56 [facility] Comment on above: Performed By: #### L 506.1000, L500.4050, L100.0100, L500.4100 #### [facility] [address] [place], [address] AST [Catalytic activity/Vol] 21 U/L Normal 15-37 [facility] Comment on above: Performed By: #### L 506.1000, L500.4050, L100.0100, L500.4100 #### [facility] [address] [place], [address] Bilirubin [Mass/Vol] 0.90 mg/dL Normal 0.20-1.00 [facility] Comment on above: Result Comment: For patients on eltrombopag therapy, use of Dimension [place] TBIL is not recommended. Performed By: #### L 506.1000, L500.4050, L100.0100, L500.4100 #### [facility] [address] [place], [address] BUN/CRE 17.1 RATIO Normal 10-20 [facility] Comment on above: Performed By: #### L 506.1000, L500.4050, L100.0100, L500.4100 #### [facility] [address] [place], [address] CA,Total 9.2 mg/dL Normal 8.5-10.1 [facility] Comment on above: Performed By: #### L 506.1000, L500.4050, L100.0100, L500.4100 #### [facility] [address] [place], [address] Chloride [Moles/Vol] 106 mmol/L Normal 98-107 [facility] Comment on above: Performed By: #### L 506.1000, L500.4050, L100.0100, L500.4100 #### [facility] [address] [place], [address] CO2 [Moles/Vol] 29.0 mmol/L Normal 21.0-32.0 [facility] Comment on above: Performed By: #### L 506.1000, L500.4050, L100.0100, L500.4100 #### [facility] [address] [place], [address] Creatinine [Mass/Vol] 0.76 mg/dL Normal 0.55-1.02 [facility] Comment on above: Result Comment: The validity of the calculated GFR GFRAA in patients over 70 years has not been determined. Clinical correlation is essential. Performed By: #### L 506.1000, L500.4050, L100.0100, L500.4100 #### [facility] [address] [place], [address] EST GFR - AA 96 mL/min Normal >60 [facility] Comment on above: Result Comment: Afri can Colombian GFR Calc Performed By: #### L 506.1000, L500.4050, L100.0100, L500.4100 #### [facility] [address] [place], [address] GAP 5 Normal 5-15 [facility] Comment on above: Performed By: #### L 506.1000, L500.4050, L100.0100, L500.4100 #### [facility] [address] [place], [address] GFR/1.73 sq M.predicted among non-blacks MDRD (S/P/Bld) [Vol rate/Area] 79 mL/min/{1.73_m2} Normal >60 [facility] Comment on above: Result Comment: Non- GFR Calc Performed By: #### L 506.1000, L500.4050, L100.0100, L500.4100 #### [facility] [address] [place], [address] Globulin (S) [Mass/Vol] 4.1 g/dL Normal 2.2-4.2 [facility] Comment on above: Performed By: #### L 506.1000, L500.4050, L100.0100, L500.4100 #### [facility] [address] [place], [address] Glucose [Mass/Vol] 92 mg/dL Normal 74-106 [facility] Comment on above: Performed By: #### L 506.1000, L500.4050, L100.0100, L500.4100 #### [facility] [address] [place], [address] Potassium [Moles/Vol] 3.9 mmol/L Normal 3.5-5.1 [facility] Comment on above: Performed By: #### L 506.1000, L500.4050, L100.0100, L500.4100 #### [facility] [address] [place], [address] Sodium [Moles/Vol] 140 mmol/L Normal 136-145 [facility] Comment on above: Performed By: #### L 506.1000, L500.4050, L100.0100, L500.4100 #### [facility] [address] [place], [address] T PROT 7.5 g/dL Normal 6.4-8.2 [facility] Comment on above: Performed By: #### L 506.1000, L500.4050, L100.0100, L500.4100 #### [facility] [address] [place], [address] Urea nitrogen [Mass/Vol] 13 mg/dL Normal 7-18 [facility] Comment on above: Performed By: #### L 506.1000, L500.4050, L100.0100, L500.4100 #### [facility] [address] [place], [address] Eosinophil percentageOrdered By: Zafar Spivey on 11-13-2024 Eosinophils/100 WBC (Bld) 5.3 % High 0-5 [facility] Erythrocyte distribution wid th ratioOrdered By: Zafar Spivey on 11-13-2024 Erythrocyte distribution width (RBC) [Ratio] 13.9 % 11.6-14.6 [facility] Erythrocyte distribution wid th standard deviationOrdered By: Zafar Spivey on 11-13-2024 Erythrocyte distribution width (RBC) [Entitic vol] 49.3 fL High 35.1-43.9 [facility] Estimated glomerular filtrat ion rate (GFR) AmericanOrdered By: Zafar Spivey on 11-13-2024 Estimated GFR (MDRD) Amer 96 mL/min >60 [facility] Comment on above: GFR Calc Glomerular filtration rate ( GFR) estimationOrdered By: Zafar Spivey on 11-13-2024 Estimated GFR (MDRD) Non-Af Amer 79 mL/min >60 [facility] Comment on above: Non- GFR Calc Glucose measurementOrdered B y: Zafar Spivey on 11-13-2024 Glucose [Mass/Vol] 92 mg/dL 74-106 [facility] Hematocrit Auto (Bld) [Volum e fraction]Ordered By: Zafar Spivey on 11-13-2024 Hematocrit (Bld) [Volume fraction] 40.6 % 37-47 [facility] Hemoglobin measurementOrdere d By: Zafar Spivey on 11-13-2024 Hemoglobin (Bld) [Mass/Vol] 13.1 g/dL 12.0-15.0 [facility] High density lipoprotein (HD L) measurementOrdered By: Zafar Spivey on 11-13-2024 Cholesterol in HDL [Mass/Vol] 95 mg/dL >40 [facility] Comment on above: The drugs N-Acetylcy steine and Metamizole may falsely depress this assay. Reference Range HDL <40 mg/dL Low HDL Cholesterol HDL >or= 60 mg/dL High HDL Cholesterol Immature granulocytes/100 WB C Auto (Bld)Ordered By: Zafar Spivey on 11-13-2024 Immature granulocytes/100 WBC (Bld) 0.200 % 0.0-0.9 [facility] Comment on above: IG% - Immature Granu locytes (promyelocytes, myelocytes and metamyelocytes) > 1% indicates that a LEFT SHIFT is Present. Laboratory - Chemistry and C hemistry - challengeOrdered By: Zafar Spivey on 11-13-2024 AST [Catalytic activity/Vol] 21 U/L 15-37 [facility] Lipid Profileon 11-13-2024 Cholesterol [Mass/Vol] 236 mg/dL High 200 [facility] Comment on above: Result Comment: <200 mg/dL Desirable 200-240 mg/dL Borderline >240 mg/dL High Risk Performed By: #### L 506.1000, L500.4050, L100.0100, L500.4100 #### [facility] [address] [place], [address] Cholesterol in HDL [Mass/Vol] 95 mg/dL Normal [facility] Comment on above: Result Comment: The drugs N-Acetylcysteine and Metamizole may falsely depress this assay. Reference Range HDL <40 mg/dL Low HDL Cholesterol HDL >or= 60 mg/dL High HDL Cholesterol Performed By: #### L 506.1000, L500.4050, L100.0100, L500.4100 #### [facility] [address] [place], [address] Cholesterol in LDL [Mass/Vol] 129 mg/dL Normal 0-130 [facility] Comment on above: Performed By: #### L 506.1000, L500.4050, L100.0100, L500.4100 #### [facility] [address] [place], [address] Cholesterol in VLDL [Mass/Vol] 12 mg/dL Normal 5-40 [facility] Comment on above: Performed By: #### L 506.1000, L500.4050, L100.0100, L500.4100 #### [facility] [address] [place], [address] Triglyceride [Mass/Vol] 59 mg/dL Normal [facility] Comment on above: Result Comment: The drugs N-Acetylcysteine and Metamizole may falsely depress this assay. Serum Triglycerides Reference Interval Normal <150 mg/dL Borderline high 150 - 199 mg/dL High 200 - 499 mg/dL Very High > or = 500 mg/dL Performed By: #### L 506.1000, L500.4050, L100.0100, L500.4100 #### [facility] [address] [place], [address] Low density lipoprotein (LDL ) cholesterol measurementOrdered By: Zafar Spivey on 11-13-2024 Cholesterol in LDL [Mass/Vol] 129 mg/dL 0-130 [facility] Lymphocytes Auto (Unsp spec) [#/Vol]Ordered By: Zafar Spivey on 11-13-2024 Lymphocytes (Bld) [#/Vol] 2.20 10*3/uL 0.83-4.51 [facility] Lymphocytes/100 WBC Auto (Un sp spec)Ordered By: Zafar Spivey on 11-13-2024 Lymphocytes/100 WBC (Bld) 49.0 % High 19-41 [facility] MCV (mean corpuscular volume ) determinationOrdered By: Zafar Spivey on 11-13-2024 MCV (RBC) [Entitic vol] 96.2 fL 81-99 [facility] Mean corpuscular hemoglobin (MCH) determinationOrdered By: Zafar Spivey on 11-13-2024 MCH (RBC) [Entitic mass] 31.0 pg 27.0-32.0 [facility] Mean corpuscular hemoglobin concentration (MCHC) determinationOrdered By: Zafar Spivey on 11-13-2024 MCHC (RBC) [Mass/Vol] 32.3 g/dL 32-36 [facility] Mean platelet volume determi nationOrdered By: Zafar Spivey on 11-13-2024 Platelet mean volume (Bld) [Entitic vol] 9.4 fL 6.2-12.0 [facility] Monocyte percentageOrdered B y: Zafar Spivey on 11-13-2024 Monocytes/100 WBC (Bld) 8.9 % 0-10 [facility] Neutrophil percentageOrdered By: Zafar Spivey on 11-13-2024 Neutrophils/100 WBC (Bld) 35.7 % Low 47-70 [facility] Nucleated red blood cell per centageOrdered By: Zafar Spivey on 11-13-2024 Nucleated RBC/100 WBC (Bld) [Ratio] 0 % 0-5 [facility] Platelet countOrdered By: Luis Spivey on 11-13-2024 Platelets (Bld) [#/Vol] 260 10*3/uL 150-450 [facility] Potassium measurementOrdered By: Zafar Spivey on 11-13-2024 Potassium [Moles/Vol] 3.9 mmol/L 3.5-5.1 [facility] RBC Auto (Bld) [#/Vol]Ordere d By: Zafar Spivey on 11-13-2024 RBC (Bld) [#/Vol] 4.22 10*6/uL 4.2-5.4 [facility] SCRN MAMM (CAD)W/SNOW BILATo n 11-13-2024 SCRN MAMM (CAD)W/SNOW BILAT [facility] Imaging Services [address] [place] [address] SCRN MAMM (CAD)W/SNOW BILAT MR#: [id number] Acct: [id number] Name: DOMINIC GARCIA Rep #: [id number] : 1950 F 73 From: Linda Morales MD PCP: Dr. Zafar Spivey, Status: REG CLI Study: SCRN MAMM (CAD)W/SNOW BILAT Date of Exam: 10/25 10/17 Exam# [id number] Ordering Dr: Zafar Spivey DO PROCEDURE: SCRN MAMM (CAD)W/SNOW BILAT REASON FOR EXAM: F, Age 73 y/o, for annual screening mammogram. No family history of breast cancer. TECHNIQUE: Bilateral screening digital breast tomosynthesis with 2D and 3D images. Computer aided detection. COMPARISON: 11/12/2023 FINDINGS: There are scattered areas of fibroglandular density. No suspicious masses, areas of developing architectural distortion, or suspicious calcifications. BI/SCRN MAMM (CAD)W/SNOW BILAT IMPRESSION: There is no evidence of malignancy in either breast. BI-RADS 1: NEGATIVE. RECOMMEND ANNUAL MAMMOGRAPHIC SCREENING. Follow-up code: Routine Follow-up The patient will be notified of the results by letter. Reading Location: [facility] CC: Dr. Zafar Spivey, Mechanic Foreman: Signed Normal [facility] Serum anion gap measurementO rdered By: Zafar Spivey on 11-13-2024 Anion gap [Moles/Vol] 5 mmol/L 5-15 [facility] Serum globulin measurementOr dered By: Zafar Spivey on 11-13-2024 Globulin (S) [Mass/Vol] 4.1 g/dL 2.2-4.2 [facility] Serum or plasma alanine or[place] otransferase (ALT) measurementOrdered By: Zafar Spivey on 11-13-2024 ALT [Catalytic activity/Vol] 28 U/L 13-56 [facility] Serum or plasma albumin preston urement (mass/volume)Ordered By: Zafar Spivey on 11-13-2024 Albumin [Mass/Vol] 3.4 g/dL 3.2-5.0 [facility] Serum or plasma alkaline joel sphatase measurementOrdered By: Zafar Spivey on 11-13-2024 ALP [Catalytic activity/Vol] 91 U/L 45-117 [facility] Serum or plasma calcium preston urement (mass/volume)Ordered By: Zafar Spivey on 11-13-2024 Calcium [Mass/Vol] 9.2 mg/dL 8.5-10.1 [facility] Serum or plasma cholesterol measurement (mass/volume)Ordered By: Zafar Spivey on 11-13-2024 Cholesterol [Mass/Vol] 236 mg/dL High <200 [facility] Comment on above: <200 mg/dL Desirable 200-240 mg/dL Borderline >240 mg/dL High Risk Serum or plasma creatinine m easurement (mass/volume)Ordered By: Zafar Spivey on 11-13-2024 Creatinine [Mass/Vol] 0.76 mg/dL 0.55-1.02 [facility] Comment on above: The validity of the calculated GFR & GFRAA in patients over 70 years has not been determined. Clinical correlation is essential. Serum or plasma urea nitroge n measurement (mass/volume)Ordered By: Zafar Spivey on 11-13-2024 Urea nitrogen [Mass/Vol] 13 mg/dL 7-18 [facility] Sodium levelOrdered By: Zafar Spivey on 11-13-2024 Sodium [Moles/Vol] 140 mmol/L 136-145 [facility] Total proteinOrdered By: Marisabel Spivey on 11-13-2024 Protein [Mass/Vol] 7.5 g/dL 6.4-8.2 [facility] Triglycerides measurementOrd ered By: Zafar Spivey on 11-13-2024 Triglyceride [Mass/Vol] 59 mg/dL <199 [facility] Comment on above: The drugs N-Acetylcy steine and Metamizole may falsely depress this assay.Serum Triglycerides Reference Interval Normal <150 mg/dL Borderline high 150 - 199 mg/dL High 200 - 499 mg/dL Very High > or = 500 mg/dL Very low density lipoprotein (VLDL) cholesterol measurementOrdered By: Zafar Spivey on 11-13-2024 VLDL Cholesterol 12 mg/dL 5-40 [facility] Vitamin D,25 Hydroxyon 11-13 Vitamin D 25-OH 63.8 ng/mL Normal [facility] Comment on above: Result Comment: [place] min D 25(OH) Status Range Deficiency <20 ng/mL (50nmol/L) Insufficiency 20 - 30 ng/mL (50 - 75 nmol/L) Sufficiency 30 - 100 ng/mL (75 - 250 nmol/L) Toxicity >100 ng/mL (>250 nmol/L) Performed By: #### L 506.1000, L500.4050, L100.0100, L500.4100 #### [facility] [address] [place], [place], [address] White blood cell (WBC) count Ordered By: Zafar Spivey on 11-13-2024 WBC (Bld) [#/Vol] 4.5 10*3/uL 4.4-11.0 [facility] CBC W/Diff, Automatedon 04-23 Absolute Lymph 1.98 X10 3/uL Normal 0.83-4.51 [facility] Comment on above: Performed By: #### L 500.4050, L500.4100, L100.0100 #### [facility] [address] [place], [address] Absolute Neut 1.8 X10 3/uL Low 2.0-7.7 [facility] Comment on above: Performed By: #### L 500.4050, L500.4100, L100.0100 #### [facility] [address] [place], [address] Basophils/100 WBC (Bld) 0.9 % Normal 0-1 [facility] Comment on above: Performed By: #### L 500.4050, L500.4100, L100.0100 #### [facility] [address] [place], [address] Eosinophils/100 WBC (Bld) 3.2 % Normal 0-5 [facility] Comment on above: Performed By: #### L 500.4050, L500.4100, L100.0100 #### [facility] [address] [place], [address] Erythrocyte distribution width (RBC) [Ratio] 13.5 % Normal 11.6-14.6 [facility] Comment on above: Performed By: #### L 500.4050, L500.4100, L100.0100 #### [facility] [address] [place], [address] Hematocrit (Bld) [Volume fraction] 39.4 % Normal 37-47 [facility] Comment on above: Performed By: #### L 500.4050, L500.4100, L100.0100 #### [facility] [address] [place], [address] Hemoglobin (Bld) [Mass/Vol] 12.9 g/dL Normal 12.0-15.0 [facility] Comment on above: Performed By: #### L 500.4050, L500.4100, L100.0100 #### [facility] [address] [place], [address] IG% 0.200 Normal 0.0-0.9 [facility] Comment on above: Result Comment: IG% - Immature Granulocytes (promyelocytes, myelocytes and metamyelocytes) > 1% indicates that a LEFT SHIFT is Present. Performed By: #### L 500.4050, L500.4100, L100.0100 #### [facility] [address] [place], [address] Lymphocytes/100 WBC (Bld) 45.9 % High 19-41 [facility] Comment on above: Performed By: #### L 500.4050, L500.4100, L100.0100 #### [facility] [address] [place], [address] MCH (RBC) [Entitic mass] 32.3 pg High 27.0-32.0 [facility] Comment on above: Performed By: #### L 500.4050, L500.4100, L100.0100 #### [facility] [address] [place], [address] MCHC (RBC) [Mass/Vol] 32.7 g/dL Normal 32-36 [facility] Comment on above: Performed By: #### L 500.4050, L500.4100, L100.0100 #### [facility] [address] [place], [address] MCV (RBC) [Entitic vol] 98.5 fL Normal 81-99 [facility] Comment on above: Performed By: #### L 500.4050, L500.4100, L100.0100 #### [facility] [address] [place], [address] Monocytes/100 WBC (Bld) 7.9 % Normal 0-10 [facility] Comment on above: Performed By: #### L 500.4050, L500.4100, L100.0100 #### [facility] [address] [place], [address] Neutrophils/100 WBC (Bld) 41.9 % Low 47-70 [facility] Comment on above: Performed By: #### L 500.4050, L500.4100, L100.0100 #### [facility] [address] [place], [address] Nucleated RBC (Bld) [#/Vol] 0 10*3/uL Normal 0-5 [facility] Comment on above: Performed By: #### L 500.4050, L500.4100, L100.0100 #### [facility] [address] [place], [address] Platelet mean volume (Bld) [Entitic vol] 9.8 fL Normal 6.2-12.0 [facility] Comment on above: Performed By: #### L 500.4050, L500.4100, L100.0100 #### [facility] [address] [place], [address] Platelets (Bld) [#/Vol] 257 10*3/uL Normal 150-450 [facility] Comment on above: Performed By: #### L 500.4050, L500.4100, L100.0100 #### [facility] [address] [place], [address] RBC (Bld) [#/Vol] 4.00 10*6/uL Low 4.2-5.4 [facility] Comment on above: Performed By: #### L 500.4050, L500.4100, L100.0100 #### [facility] [address] [place], [address] RDW SD 49.6 fl High 35.1-43.9 [facility] Comment on above: Performed By: #### L 500.4050, L500.4100, L100.0100 #### [facility] [address] [place], [address] WBC (Bld) [#/Vol] 4.3 10*3/uL Low 4.4-11.0 [facility] Comment on above: Performed By: #### L 500.4050, L500.4100, L100.0100 #### [facility] [address] [place], [address] Comprehensive Metabolic Prof [facility] 05-11-2024 Albumin [Mass/Vol] 3.6 g/dL Normal 3.2-5.0 [facility] Comment on above: Performed By: #### L 500.4050, L500.4100, L100.0100 #### [facility] [address] [place], [address] Albumin/Globulin [Mass ratio] 0.9 {ratio} Normal 0.9-2.4 [facility] Comment on above: Performed By: #### L 500.4050, L500.4100, L100.0100 #### [facility] [address] [place], [address] ALK P 91 U/L Normal 45-117 [facility] Comment on above: Performed By: #### L 500.4050, L500.4100, L100.0100 #### [facility] [address] [place], [address] ALT [Catalytic activity/Vol] 24 U/L Normal 13-56 [facility] Comment on above: Performed By: #### L 500.4050, L500.4100, L100.0100 #### [facility] [address] [place], [address] AST [Catalytic activity/Vol] 19 U/L Normal 15-37 [facility] Comment on above: Performed By: #### L 500.4050, L500.4100, L100.0100 #### [facility] [address] [place], [address] Bilirubin [Mass/Vol] 0.60 mg/dL Normal 0.20-1.00 [facility] Comment on above: Result Comment: For patients on eltrombopag therapy, use of Dimension [place] TBIL is not recommended. Performed By: #### L 500.4050, L500.4100, L100.0100 #### [facility] [address] [place], [address] BUN/CRE 24.3 RATIO High 10-20 [facility] Comment on above: Performed By: #### L 500.4050, L500.4100, L100.0100 #### [facility] [address] [place], [address] CA,Total 9.5 mg/dL Normal 8.5-10.1 [facility] Comment on above: Performed By: #### L 500.4050, L500.4100, L100.0100 #### [facility] [address] [place], [address] Chloride [Moles/Vol] 107 mmol/L Normal 98-107 [facility] Comment on above: Performed By: #### L 500.4050, L500.4100, L100.0100 #### [facility] [address] [place], [address] CO2 [Moles/Vol] 28.0 mmol/L Normal 21.0-32.0 [facility] Comment on above: Performed By: #### L 500.4050, L500.4100, L100.0100 #### [facility] [address] [place], [address] Creatinine [Mass/Vol] 0.78 mg/dL Normal 0.55-1.02 [facility] Comment on above: Result Comment: The validity of the calculated GFR GFRAA in patients over 70 years has not been determined. Clinical correlation is essential. Performed By: #### L 500.4050, L500.4100, L100.0100 #### [facility] [address] [place], [address] EST GFR - AA 93 mL/min Normal >60 [facility] Comment on above: Result Comment: Afri can Colombian GFR Calc Performed By: #### L 500.4050, L500.4100, L100.0100 #### [facility] [address] [place], [address] GAP 3 Low 5-15 [facility] Comment on above: Performed By: #### L 500.4050, L500.4100, L100.0100 #### [facility] [address] [place], [address] GFR/1.73 sq M.predicted among non-blacks MDRD (S/P/Bld) [Vol rate/Area] 77 mL/min/{1.73_m2} Normal >60 [facility] Comment on above: Result Comment: Non- GFR Calc Performed By: #### L 500.4050, L500.4100, L100.0100 #### [facility] [address] [place], [address] Globulin (S) [Mass/Vol] 3.9 g/dL Normal 2.2-4.2 [facility] Comment on above: Performed By: #### L 500.4050, L500.4100, L100.0100 #### [facility] [address] [place], [address] Glucose [Mass/Vol] 94 mg/dL Normal 74-106 [facility] Comment on above: Performed By: #### L 500.4050, L500.4100, L100.0100 #### [facility] [address] [place], [address] Potassium [Moles/Vol] 3.8 mmol/L Normal 3.5-5.1 [facility] Comment on above: Performed By: #### L 500.4050, L500.4100, L100.0100 #### [facility] [address] [place], [address] Sodium [Moles/Vol] 138 mmol/L Normal 136-145 [facility] Comment on above: Performed By: #### L 500.4050, L500.4100, L100.0100 #### [facility] [address] [place], [address] T PROT 7.5 g/dL Normal 6.4-8.2 [facility] Comment on above: Performed By: #### L 500.4050, L500.4100, L100.0100 #### [facility] [address] [place], [address] Urea nitrogen [Mass/Vol] 19 mg/dL High 7-18 [facility] Comment on above: Performed By: #### L 500.4050, L500.4100, L100.0100 #### [facility] [address] [place], [address] Lipid Profileon 05-11-2024 Cholesterol [Mass/Vol] 244 mg/dL High 200 [facility] Comment on above: Result Comment: <200 mg/dL Desirable 200-240 mg/dL Borderline >240 mg/dL High Risk Performed By: #### L 500.4050, L500.4100, L100.0100 #### [facility] [address] [place], [address] Cholesterol in HDL [Mass/Vol] 84 mg/dL Normal [facility] Comment on above: Result Comment: The drugs N-Acetylcysteine and Metamizole may falsely depress this assay. Reference Range HDL <40 mg/dL Low HDL Cholesterol HDL >or= 60 mg/dL High HDL Cholesterol Performed By: #### L 500.4050, L500.4100, L100.0100 #### [facility] [address] [place], [address] Cholesterol in LDL [Mass/Vol] 137 mg/dL High 0-130 [facility] Comment on above: Performed By: #### L 500.4050, L500.4100, L100.0100 #### [facility] [address] [place], [address] Cholesterol in VLDL [Mass/Vol] 23 mg/dL Normal 5-40 [facility] Comment on above: Performed By: #### L [id number], L500.4100, L100.0100 #### [facility] [address] [place], [address] Triglyceride [Mass/Vol] 113 mg/dL Normal [facility] Comment on above: Result Comment: The drugs N-Acetylcysteine and Metamizole may falsely depress this assay. Serum Triglycerides Reference Interval Normal <150 mg/dL Borderline high 150 - 199 mg/dL High 200 - 499 mg/dL Very High > or = 500 mg/dL Performed By: #### L 500.4050, L500.4100, L100.0100 #### [facility] [address] [place], [address] Absolute lymphocyte countOrd ered By: Zafar Spivey on 11-12-2023 Lymphocytes Auto (Unsp spec) [#/Vol] 2.11 10*3/uL 0.83-4.51 [facility] Automated lymphocyte count a s percentage of total leukocytesOrdered By: Zafar Spivey on 11-12-2023 Lymphocytes/100 WBC Auto (Unsp spec) 46.2 % 19-41 [facility] Basophil percentageOrdered B y: Zafar Spivey on 11-12-2023 Basophils/100 WBC (Bld) 1.5 % 0-1 [facility] Bilirubin [Mass/Vol] 0.70 mg/dL 0.20-1.00 [facility] Comment on above: For patients on eltr ombopag therapy, use of Dimension [place] TBIL is not recommended. Chloride [Moles/Vol] 110 mmol/L 98-107 [facility] Cholesterol [Mass/Vol] 250 mg/dL <200 [facility] Comment on above: <200 mg/dL Desirable 200-240 mg/dL Borderline >240 mg/dL High Risk Eosinophils/100 WBC (Bld) 3.3 % 0-5 [facility] Glucose [Mass/Vol] 104 mg/dL 74-106 [facility] Comment on above: Fasting Glucose resu lt from 100 to 125 mg/dL suggests IMPAIRED HOMEOSTASIS per A.D.A. criteria. Hemoglobin (Bld) [Mass/Vol] 13.0 g/dL 12.0-15.0 [facility] Monocytes/100 WBC (Bld) 9.4 % 0-10 [facility] Neutrophils (Bld) [#/Vol] 1.8 10*3/uL 2.0-7.7 [facility] Neutrophils/100 WBC (Bld) 39.6 % 47-70 [facility] Potassium [Moles/Vol] 4.3 mmol/L 3.5-5.1 [facility] Protein [Mass/Vol] 7.6 g/dL 6.4-8.2 [facility] Sodium [Moles/Vol] 141 mmol/L 136-145 [facility] Triglyceride [Mass/Vol] 58 mg/dL <199 [facility] Comment on above: The drugs N-Acetylcy steine and Metamizole may falsely depress this assay.Serum Triglycerides Reference Interval Normal <150 mg/dL Borderline high 150 - 199 mg/dL High 200 - 499 mg/dL Very High > or = 500 mg/dL WBC (Bld) [#/Vol] 4.6 10*3/uL 4.4-11.0 [facility] Determination of erythrocyte mean corpuscular volume (MCV)Ordered By: Zafar Spivey on 11-12-2023 MCV (RBC) [Entitic vol] 96.7 fL 81-99 [facility] Erythrocyte distribution wid th ratioOrdered By: Zafar Spivey on 11-12-2023 Erythrocyte distribution width (RBC) [Ratio] 13.8 % 11.6-14.6 [facility] Erythrocyte distribution wid th standard deviationOrdered By: Zafar Spivey on 11-12-2023 Erythrocyte distribution width (RBC) [Entitic vol] 49.2 fL 35.1-43.9 [facility] Hematocrit Auto (Bld) [Volum e fraction]Ordered By: Zafar Spivey on 11-12-2023 Hematocrit (Bld) [Volume fraction] 40.5 % 37-47 [facility] Immature granulocytes/100 WB C Auto (Bld)Ordered By: Zafar Spivey on 11-12-2023 Immature granulocytes/100 WBC (Bld) 0.000 % 0.0-0.9 [facility] Comment on above: IG% - Immature Granu locytes (promyelocytes, myelocytes and metamyelocytes) > 1% indicates that a LEFT SHIFT is Present. Laboratory - Chemistry and C hemistry - challengeOrdered By: Zafar Spivey on 11-12-2023 Albumin/Globulin [Mass ratio] 0.9 {ratio} 0.9-2.4 [facility] ALP [Catalytic activity/Vol] 90 U/L 45-117 [facility] ALT [Catalytic activity/Vol] 28 U/L 13-56 [facility] Cholesterol in HDL [Mass/Vol] 100 mg/dL >40 [facility] Comment on above: The drugs N-Acetylcy steine and Metamizole may falsely depress this assay. Reference Range HDL <40 mg/dL Low HDL Cholesterol HDL >or= 60 mg/dL High HDL Cholesterol Cholesterol in LDL [Mass/Vol] 138 mg/dL 0-130 [facility] CO2 [Moles/Vol] 28.0 mmol/L 21.0-32.0 [facility] Globulin (S) [Mass/Vol] 3.9 g/dL 2.2-4.2 [facility] Urea nitrogen/Creatinine [Mass ratio] 21.2 mg/mg 10-20 [facility] - Hematology and Cell countsOrdered By: Zafar Spivey on 11-12-2023 MCH (RBC) [Entitic mass] 31.0 pg 27.0-32.0 [facility] MCHC (RBC) [Mass/Vol] 32.1 g/dL 32-36 [facility] Nucleated RBC/100 WBC (Bld) [Ratio] 0 % 0-5 [facility] Platelet mean volume (Bld) [Entitic vol] 9.8 fL 6.2-12.0 [facility] Platelets (Bld) [#/Vol] 285 10*3/uL 150-450 [facility] No Panel InformationOrdered By: Zafar Spivey on 11-12-2023 Estimated GFR (MDRD) Amer 80 mL/min >60 [facility] Comment on above: GFR Calc Estimated GFR (MDRD) Non-Af Amer 66 mL/min >60 [facility] Comment on above: Non- GFR Calc VLDL Cholesterol 12 mg/dL 5-40 [facility] RBC Auto (Bld) [#/Vol]Ordere d By: Zafar Spivey on 11-12-2023 RBC (Bld) [#/Vol] 4.19 10*6/uL 4.2-5.4 [facility] Serum or plasma calcium preston urement (mass/volume)Ordered By: Zafar Spivey on 11-12-2023 Calcium [Mass/Vol] 9.6 mg/dL 8.5-10.1 [facility] Serum or plasma creatinine m easurement (mass/volume)Ordered By: Zafar Spivey on 11-12-2023 Creatinine [Mass/Vol] 0.90 mg/dL 0.55-1.02 [facility] Comment on above: The validity of the calculated GFR & GFRAA in patients over 70 years has not been determined. Clinical correlation is essential. Serum or plasma urea nitroge n measurement (mass/volume)Ordered By: Zafar Spivey on 11-12-2023 Urea nitrogen [Mass/Vol] 19 mg/dL 7-18 [facility] Thin prep Papanicolaou smear with manual screeningOrdered By: Zafar Spivey on 11-12-2023 Thin prep Papanicolaou smear with manual screening 3.7 g/dL 3.2-5.0 [facility] Thin prep Papanicolaou smear with manual screening 20 U/L 15-37 [facility] Thin prep Papanicolaou smear with manual screening 3 5-15 [facility] - Chemistry and C hemistry - challengeOrdered By: Louie Gonzales on 05-15-2023 T4 [Mass/Vol] 9.7 ug/dL 4.8-13.9 [facility] No Panel InformationOrdered By: Louie Gonzales on 05-15-2023 Thyroid Stimulating Hormone (TSH) 1.98 uIU/mL 0.358-3.74 [facility] Total Triiodothyronine 1.02 ng/mL 0.6-1.81 [facility] Vitamin D 25-Hydroxy 55.5 ng/mL [facility] Comment on above: Vitamin D 25(OH) Sta tus Range Deficiency <20 ng/mL (50nmol/L) Insufficiency 20 - 30 ng/mL (50 - 75 nmol/L) Sufficiency 30 - 100 ng/mL (75 - 250 nmol/L) Toxicity >100 ng/mL (>250 nmol/L) Serum or plasma calcitriol m easurement (mass/volume)Ordered By: Louie Gonzales on 05-15-2023 1,25-dihydroxyvitamin D3 [Mass/Vol] 34.1 pg/mL 24.8-81.5 [facility] Comment on above: Performed at: [address] [id number] Director: Kyler Ruiz MD, Phone: [phone] Serum or plasma ferritin fawn surement (mass/volume)Ordered By: Louie Gonzales on 05-15-2023 Ferritin [Mass/Vol] 29 ng/mL 8-252 [facility] Absolute lymphocyte countOrd ered By: Patricia Lees on 04-30-2023 Lymphocytes Auto (Unsp spec) [#/Vol] 2.12 10*3/uL 0.83-4.51 [facility] Basophil percentageOrdered B y: Patricia Lees on 04-30-2023 Basophils/100 WBC (Bld) 0.8 % 0-1 [facility] Chloride [Moles/Vol] 107 mmol/L 98-107 [facility] Eosinophils/100 WBC (Bld) 5.6 % 0-5 [facility] Glucose [Mass/Vol] 104 mg/dL 74-106 [facility] Comment on above: Fasting Glucose resu lt from 100 to 125 mg/dL suggests IMPAIRED HOMEOSTASIS per A.D.A. criteria. Neutrophils (Bld) [#/Vol] 1.9 10*3/uL 2.0-7.7 [facility] Neutrophils/100 WBC (Bld) 39.6 % 47-70 [facility] Potassium [Moles/Vol] 4.4 mmol/L 3.5-5.1 [facility] Sodium [Moles/Vol] 141 mmol/L 136-145 [facility] WBC (Bld) [#/Vol] 4.8 10*3/uL 4.4-11.0 [facility] Blood erythrocytes count (nu mber/volume)Ordered By: Patricia Lees on 04-30-2023 RBC (Bld) [#/Vol] 3.92 10*6/uL 4.2-5.4 [facility] Blood hemoglobin measurement (mass/volume)Ordered By: Patricia Lees on 04-30-2023 Hemoglobin (Bld) [Mass/Vol] 12.8 g/dL 12.0-15.0 [facility] Blood lymphocytes/100 leukoc ytesOrdered By: Patricia Lees on 04-30-2023 Lymphocytes/100 WBC (Bld) 44.4 % 19-41 [facility] Blood monocytes/100 leukocyt esOrdered By: Patricia Lees on 04-30-2023 Monocytes/100 WBC (Bld) 9.4 % 0-10 [facility] Blood platelet mean volumeOr dered By: Patricia Lees on 04-30-2023 Platelet mean volume (Bld) [Entitic vol] 9.4 fL 6.2-12.0 [facility] Determination of erythrocyte mean corpuscular volume (MCV)Ordered By: Patricia Lees on 04-30-2023 MCV (RBC) [Entitic vol] 99.2 fL 81-99 [facility] Hematocrit Auto (Bld) [Volum e fraction]Ordered By: Patricia Lees on 04-30-2023 Hematocrit (Bld) [Volume fraction] 38.9 % 37-47 [facility] - Chemistry and C hemistry - challengeOrdered By: Patricia Lees on 04-30-2023 CO2 [Moles/Vol] 31.0 mmol/L 21.0-32.0 [facility] Urea nitrogen/Creatinine [Mass ratio] 22.4 mg/mg 10-20 [facility] - Hematology and Cell countsOrdered By: Patricia Lees on 04-30-2023 Erythrocyte distribution width (RBC) [Entitic vol] 50.5 fL 35.1-43.9 [facility] Erythrocyte distribution width (RBC) [Ratio] 13.8 % 11.6-14.6 [facility] Immature granulocytes/100 WBC (Bld) 0.200 % 0.0-0.9 [facility] Comment on above: IG% - Immature Granu locytes (promyelocytes, myelocytes and metamyelocytes) > 1% indicates that a LEFT SHIFT is Present. MCH (RBC) [Entitic mass] 32.7 pg 27.0-32.0 [facility] Nucleated RBC/100 WBC (Bld) [Ratio] 0 % 0-5 [facility] MCHC Auto (RBC) [Mass/Vol]Or dered By: Patricia Lees on 04-30-2023 MCHC (RBC) [Mass/Vol] 32.9 g/dL 32-36 [facility] No Panel InformationOrdered By: Patricia Lees on 04-30-2023 Estimated GFR (MDRD) Amer 76 mL/min >60 [facility] Comment on above: GFR Calc Estimated GFR (MDRD) Non-Af Amer 63 mL/min >60 [facility] Comment on above: Non- GFR Calc Platelets bldOrdered By: Ella Lees on 04-30-2023 Platelets (Bld) [#/Vol] 249 10*3/uL 150-450 [facility] Serum or plasma calcium preston urement (mass/volume)Ordered By: Patricia Lees on 04-30-2023 Calcium [Mass/Vol] 9.3 mg/dL 8.5-10.1 [facility] Serum or plasma creatinine m easurement (mass/volume)Ordered By: Patricia Lees on 04-30-2023 Creatinine [Mass/Vol] 0.94 mg/dL 0.55-1.02 [facility] Comment on above: The validity of the calculated GFR & GFRAA in patients over 70 years has not been determined. Clinical correlation is essential. Serum or plasma urea nitroge n measurement (mass/volume)Ordered By: Patricia Lees on 04-30-2023 Urea nitrogen [Mass/Vol] 21 mg/dL 7-18 [facility] Thin prep Papanicolaou smear with manual screeningOrdered By: Patricia Lees on 04-30-2023 Thin prep Papanicolaou smear with manual screening 3 5-15 [facility] Basophil percentageOrdered B y: Dr. Spivey on 2022 Basophil percentage Not Reportable [facility] Bilirubin Test strip Ql (U)O rdered By: Dr. Spivey on 2022 Bilirubin Ql (U) Negative Negative [facility] Erythrocyte sedimentation ra teOrdered By: Dr. Spivey on 2022 ESR (Bld) [Velocity] 16 mm/h 0-30 [facility] Ketones Test strip Ql (U)Ord ered By: Dr. Spivey on 2022 Ketones Ql (U) Negative Negative [facility] - Chemistry and C hemistry - challengeOrdered By: Dr. Spivey on 2022 CK [Catalytic activity/Vol] 110 U/L 26-192 [facility] Cobalamin (Vitamin B12) [Mass/Vol] 657 pg/mL 211-911 [facility] Nitrite Test strip Ql (U)Ord ered By: Dr. Spivey on 2022 Nitrite Ql (U) Negative Negative [facility] No Panel InformationOrdered By: Dr. Spivey on 2022 Anti-Nuclear Antibody Screen Negative Negative [facility] Comment on above: Performed at: [address] [id number] Director: Malachi Hernandez PhD, Phone: [phone] Centromere B Antibody Not Reportable [facility] COOK RELIEF Antibody Not Reportable [facility] Protein Test strip Ql (U)Ord ered By: Dr. Spivey on 2022 Protein Ql (U) Negative Negative [facility] Serum DNA double strand anti body assay (units/volume)Ordered By: Dr. Spivey on 2022 DNA double strand Ab Qn (S) Not Reportable [facility] Serum Luz Elena-1 antibody assay (u nits/volume)Ordered By: Dr. Spivey on 2022 Luz Elena-1 extractable nuclear Ab Qn (S) Not Reportable [facility] Serum Scl-70 extractable nuc lear antibody assay (units/volume)Ordered By: Dr. Spivey on 2022 SCL-70 extractable nuclear Ab Qn (S) Not Reportable [facility] Serum Qiu extractable nucl ear antibody detectionOrdered By: Dr. Spivey on 2022 Qiu extractable nuclear Ab Ql (S) Not Reportable [facility] Serum or plasma C reactive p rotein measurement (mass/volume)Ordered By: Dr. Spivey on 2022 CRP [Mass/Vol] mg/L 0.0-3.0 [facility] Comment on above: C-Reactive Protein ( CRP) provides useful information for thediagnosis, therapy and monitoring of inflammatory processesand associated diseases. For the evaluation of Relative Riskfor Cardiovascular Disease, a High Sensitivity CRP (HSCRP)should be ordered. Urine blood detectionOrdered By: Dr. Spivey on 2022 RBC Ql (U) Negative Negative [facility] Urine clarityOrdered By: Dr. Spivey on 2022 Clarity (U) Sl. Cloudy Clear [facility] Urine color determinationOrd ered By: Dr. Spivey on 2022 Color (U) Yellow Yellow [facility] Urine glucose detectionOrder ed By: Dr. Spivey on 2022 Glucose Ql (U) Normal mg/dl Normal [facility] Urine leukocyte esterase det ection by dipstickOrdered By: Dr. Spivey on 2022 Leukocyte esterase Test strip Ql (U) Negative Negative [facility] Urine pHOrdered By: Dr. Sara best on 2022 pH (U) 7.0 [pH] 5.0 - 8.0 [facility] Urine specific gravity measu rementOrdered By: Dr. Spivey on 2022 Specific gravity (U) [Rel density] 1.005 1.002-1.030 [facility] Urobilinogen Auto test strip Ql (U)Ordered By: Dr. Spivey on 2022 Urobilinogen Ql (U) Normal mg/dl Normal [facility] Whole blood hemoglobin A1c/t otal hemoglobin ratio (mass fraction)Ordered By: Dr. Spivey on 2022 HbA1c (Bld) [Mass fraction] 5.5 % 3.8-5.6 [facility] Comment on above: Normal < 5.7 % Predi abetic 5.7 - 6.4 % Diabetic >or= 6.5 % Please note range changes. Absolute lymphocyte countOrd ered By: Dr. Spivey on 11-09-2022 Lymphocytes Auto (Unsp spec) [#/Vol] 1.90 10*3/uL 0.83-4.51 [facility] Basophil percentageOrdered B y: Dr. Spivey on 11-09-2022 Basophils/100 WBC (Bld) 1.1 % 0-1 [facility] Bilirubin [Mass/Vol] 0.60 mg/dL 0.20-1.00 [facility] Comment on above: For patients on eltr ombopag therapy, use of Dimension [place] TBIL is not recommended. Chloride [Moles/Vol] 109 mmol/L 98-107 [facility] Cholesterol [Mass/Vol] 196 mg/dL <200 [facility] Comment on above: <200 mg/dL Desirable 200-240 mg/dL Borderline >240 mg/dL High Risk Eosinophils/100 WBC (Bld) 6.0 % 0-5 [facility] Glucose [Mass/Vol] 111 mg/dL 74-106 [facility] Comment on above: Fasting Glucose resu lt from 100 to 125 mg/dL suggests IMPAIRED HOMEOSTASIS per A.D.A. criteria. Neutrophils (Bld) [#/Vol] 2.0 10*3/uL 2.0-7.7 [facility] Neutrophils/100 WBC (Bld) 43.3 % 47-70 [facility] Potassium [Moles/Vol] 4.2 mmol/L 3.5-5.1 [facility] Protein [Mass/Vol] 7.1 g/dL 6.4-8.2 [facility] Sodium [Moles/Vol] 143 mmol/L 136-145 [facility] Triglyceride [Mass/Vol] 51 mg/dL <199 [facility] Comment on above: The drugs N-Acetylcy steine and Metamizole may falsely depress this assay.Serum Triglycerides Reference Interval Normal <150 mg/dL Borderline high 150 - 199 mg/dL High 200 - 499 mg/dL Very High > or = 500 mg/dL WBC (Bld) [#/Vol] 4.7 10*3/uL 4.4-11.0 [facility] Blood erythrocytes count (nu mber/volume)Ordered By: Dr. Spivey on 11-09-2022 RBC (Bld) [#/Vol] 4.01 10*6/uL 4.2-5.4 [facility] Blood hemoglobin measurement (mass/volume)Ordered By: Dr. Spivey on 11-09-2022 Hemoglobin (Bld) [Mass/Vol] 12.8 g/dL 12.0-15.0 [facility] Blood lymphocytes/100 leukoc ytesOrdered By: Dr. Spivey on 11-09-2022 Lymphocytes/100 WBC (Bld) 40.6 % 19-41 [facility] Blood monocytes/100 leukocyt esOrdered By: Dr. Spivey on 11-09-2022 Monocytes/100 WBC (Bld) 8.8 % 0-10 [facility] Blood platelet mean volumeOr dered By: Dr. Spivey on 11-09-2022 Platelet mean volume (Bld) [Entitic vol] 9.6 fL 6.2-12.0 [facility] Determination of erythrocyte mean corpuscular volume (MCV)Ordered By: Dr. Spivey on 11-09-2022 MCV (RBC) [Entitic vol] 97.8 fL 81-99 [facility] Hematocrit Auto (Bld) [Volum e fraction]Ordered By: Dr. Spivey on 11-09-2022 Hematocrit (Bld) [Volume fraction] 39.2 % 37-47 [facility] - Chemistry and C hemistry - challengeOrdered By: Dr. Spivey on 11-09-2022 ALP [Catalytic activity/Vol] 77 U/L 45-117 [facility] ALT [Catalytic activity/Vol] 27 U/L 13-56 [facility] CO2 [Moles/Vol] 30.0 mmol/L 21.0-32.0 [facility] Globulin (S) [Mass/Vol] 3.6 g/dL 2.2-4.2 [facility] Urea nitrogen/Creatinine [Mass ratio] 22.2 mg/mg 10-20 [facility] - Hematology and Cell countsOrdered By: Dr. Spivey on 11-09-2022 Erythrocyte distribution width (RBC) [Entitic vol] 50.0 fL 35.1-43.9 [facility] Erythrocyte distribution width (RBC) [Ratio] 13.7 % 11.6-14.6 [facility] Immature granulocytes/100 WBC (Bld) 0.200 % 0.0-0.9 [facility] Comment on above: IG% - Immature Granu locytes (promyelocytes, myelocytes and metamyelocytes) > 1% indicates that a LEFT SHIFT is Present. MCH (RBC) [Entitic mass] 31.9 pg 27.0-32.0 [facility] Nucleated RBC/100 WBC (Bld) [Ratio] 0 % 0-5 [facility] MCHC Auto (RBC) [Mass/Vol]Or dered By: Dr. Spivey on 11-09-2022 MCHC (RBC) [Mass/Vol] 32.7 g/dL 32-36 [facility] No Panel InformationOrdered By: Dr. Spivey on 11-09-2022 Estimated GFR (MDRD) Amer 96 mL/min >60 [facility] Comment on above: GFR Calc Estimated GFR (MDRD) Non-Af Amer 79 mL/min >60 [facility] Comment on above: Non- GFR Calc Platelets bldOrdered By: Dr. Spivey on 11-09-2022 Platelets (Bld) [#/Vol] 260 10*3/uL 150-450 [facility] Serum or plasma albumin preston urement (mass/volume)Ordered By: Dr. Spivey on 11-09-2022 Albumin [Mass/Vol] 3.5 g/dL 3.2-5.0 [facility] Serum or plasma albumin/glob ulin mass ratioOrdered By: Dr. Spivey on 11-09-2022 Albumin/Globulin [Mass ratio] 1.0 {ratio} 0.9-2.4 [facility] Serum or plasma calcium preston urement (mass/volume)Ordered By: Dr. Spivey on 11-09-2022 Calcium [Mass/Vol] 9.0 mg/dL 8.5-10.1 [facility] Serum or plasma cholesterol in HDL measurement (mass/volume)Ordered By: Dr. Spivey on 11-09-2022 Cholesterol in HDL [Mass/Vol] 106 mg/dL >40 [facility] Comment on above: The drugs N-Acetylcy steine and Metamizole may falsely depress this assay. Reference Range HDL <40 mg/dL Low HDL Cholesterol HDL >or= 60 mg/dL High HDL Cholesterol Serum or plasma cholesterol in VLDL measurement (mass/volume)Ordered By: Dr. Spivey on 11-09-2022 Cholesterol in VLDL [Mass/Vol] 10 mg/dL 5-40 [facility] Serum or plasma creatinine m easurement (mass/volume)Ordered By: Dr. Spivey on 11-09-2022 Creatinine [Mass/Vol] 0.76 mg/dL 0.55-1.02 [facility] Comment on above: The validity of the calculated GFR & GFRAA in patients over 70 years has not been determined. Clinical correlation is essential. Serum or plasma low density lipoprotein (LDL) cholesterol measurement (mass/volume)Ordered By: Dr. Spivey on 11-09-2022 Cholesterol in LDL [Mass/Vol] 80 mg/dL 0-130 [facility] Serum or plasma urea nitroge n measurement (mass/volume)Ordered By: Dr. Spivey on 11-09-2022 Urea nitrogen [Mass/Vol] 17 mg/dL 7-18 [facility] Thin prep Papanicolaou smear with manual screeningOrdered By: Dr. Spivey on 11-09-2022 Thin prep Papanicolaou smear with manual screening 24 U/L 15-37 [facility] Thin prep Papanicolaou smear with manual screening 4 5-15 [facility] Absolute lymphocyte counton 05-09-2022 Lymphocytes Auto (Unsp spec) [#/Vol] 2.20 10*3/uL 0.83-4.51 [facility] Work Phone: Basophil percentageon 2021 Basophils/100 WBC (Bld) 0.8 % 0-1 [facility] Work Phone: Eosinophils/100 WBC (Bld) 6.2 % 0-5 [facility] Work Phone: Neutrophils (Bld) [#/Vol] 2.1 10*3/uL 2.0-7.7 [facility] Work Phone: Neutrophils/100 WBC (Bld) 41.5 % 47-70 [facility] Work Phone: WBC (Bld) [#/Vol] 5.0 10*3/uL 4.4-11.0 [facility] Work Phone: Blood erythrocytes count (nu mber/volume)on 05-09-2022 RBC (Bld) [#/Vol] 4.10 10*6/uL 4.2-5.4 [facility]: Blood hemoglobin measurement (mass/volume)on 05-09-2022 Hemoglobin (Bld) [Mass/Vol] 13.3 g/dL 12.0-15.0 [facility] Work Phone: Blood lymphocytes/100 leukoc yteson 05-09-2022 Lymphocytes/100 WBC (Bld) 44.3 % 19-41 [facility] Work Phone: Blood monocytes/100 leukocyt eson 05-09-2022 Monocytes/100 WBC (Bld) 7.0 % 0-10 [facility] Work Phone: Blood platelet mean volumeon 05-09-2022 Platelet mean volume (Bld) [Entitic vol] 9.8 fL 6.2-12.0 [facility] Work Phone: Determination of erythrocyte mean corpuscular volume (MCV)on 05-09-2022 MCV (RBC) [Entitic vol] 96.6 fL 81-99 [facility] Work Phone: Hematocrit Auto (Bld) [Volum e fraction]on 05-09-2022 Hematocrit (Bld) [Volume fraction] 39.6 % 37-47 [facility] Work Phone: INR in Blood by Coagulation assayon 05-09-2022 INR Coag (Bld) [Relative time] 1.0 {INR} [facility] Work Phone: Laboratory - Coagulationon 0 05-09-2022 PT Coag (PPP) [Time] 13.2 s 11.7-14.9 [facility] Work Phone: Laboratory - Hematology and Cell countson 05-09-2022 Erythrocyte distribution width (RBC) [Entitic vol] 48.1 fL 35.1-43.9 [facility] Work Phone: Erythrocyte distribution width (RBC) [Ratio] 13.5 % 11.6-14.6 [facility] Work Phone: Immature granulocytes/100 WBC (Bld) 0.200 % 0.0-0.9 [facility] Work Phone: Comment on above: IG% - Immature Granu locytes (promyelocytes, myelocytes and metamyelocytes) > 1% indicates that a LEFT SHIFT is Present. MCH (RBC) [Entitic mass] 32.4 pg 27.0-32.0 [facility] Work Phone: Nucleated RBC/100 WBC (Bld) [Ratio] 0 % 0-5 [facility] Work Phone: MCHC Auto (RBC) [Mass/Vol]on 05-09-2022 MCHC (RBC) [Mass/Vol] 33.6 g/dL 32-36 [facility] Work Phone: Platelets bldon 05-09-2022 Platelets (Bld) [#/Vol] 265 10*3/uL 150-450 [facility] Work Phone: COMPREHENSIVE METABOLIC PANE Dung 11-08-2020 Albumin [Mass/Vol] 4.4 g/dL Normal 3.6-5.1 [facility] Comment on above: Performed By: #### 1 0231, 7600 #### [facility] of [address], [address] [place] [address] [place]: Michele oTrres MD Albumin/Globulin [Mass ratio] 1.6 (calc) Normal 1.0-2.5 [facility] Comment on above: Performed By: #### 1 0231, 7600 #### [facility] of [address], [address] [place] [address] [place]: Michele Torres MD ALP [Catalytic activity/Vol] 77 U/L Normal 37-153 [facility] Comment on above: Performed By: #### 1 0231, 7600 #### [facility] of [address], [address] [place] [address] [place]: iMchele Torres MD ALT [Catalytic activity/Vol] 24 U/L Normal 6-29 [facility] Comment on above: Performed By: #### 1 023, 7600 #### [facility] of [address], [address] [place] [address] [place]: Michele Torres MD AST [Catalytic activity/Vol] 24 U/L Normal 10-35 [facility] Comment on above: Performed By: #### 1 0231, 7600 #### [facility] of [place] [address] [place]: Michele Torres MD Bilirubin [Mass/Vol] 0.8 mg/dL Normal 0.2-1.2 [facility] Comment on above: Performed By: #### 1 0231, 7600 #### [facility] of [address], [address] [place] [address] [place]: Michele Torres MD Calcium [Mass/Vol] 9.6 mg/dL Normal 8.6-10.4 [facility] Comment on above: Performed By: #### 1 0231, 7600 #### [facility] of [address], [address] [place] [address] [place]: Michele Torres MD Chloride [Moles/Vol] 102 mmol/L Normal 98-110 [facility] Comment on above: Performed By: #### 1 023, 7600 #### [facility] [place] [address] [place]: Michele Torres MD CO2 [Moles/Vol] 31 mmol/L Normal 20-32 [facility] Comment on above: Performed By: #### 1 023, 7600 #### [facility] [place] [address] [place]: Michele Torres MD Creatinine [Mass/Vol] 0.73 mg/dL Normal 0.50-0.99 [facility] Comment on above: Result Comment: For patients >49 years of age, the reference limit for Creatinine is approximately 13% higher for people identified as -Colombian. Performed By: #### 1 023, 7600 #### [facility] [place] [address] [place]: Michele Torres MD eGFR NON-AFR. LIBYAN 85 mL/min/1.73m2 Normal > OR = 60 [facility] Comment on above: Performed By: #### 1 023, 7600 #### [facility] [place] [address] [place]: Michele Torres MD GFR/1.73 sq M predicted among blacks MDRD (S/P/Bld) [Vol rate/Area] 99 mL/min/{1.73_m2} Normal > OR = 60 [facility] Comment on above: Performed By: #### 1 023, 7600 #### [facility] [place] [address] [place]: Michele Torres MD Globulin (S) [Mass/Vol] 2.7 g/dL (calc) Normal 1.9-3.7 [facility] Comment on above: Performed By: #### 1 023, 7600 #### [facility] [place] [address] [place]: Michele Torres MD Glucose [Mass/Vol] 100 mg/dL High 65-99 [facility] Comment on above: Result Comment: Fasting reference interval For someone without known diabetes, a glucose value between 100 and 125 mg/dL is consistent with prediabetes and should be confirmed with a follow-up test. Performed By: #### 1 0231, 7600 #### [facility] [address], [address] [place] [address] [place]: Michele Torres MD Potassium [Moles/Vol] 4.2 mmol/L Normal 3.5-5.3 [facility] Comment on above: Performed By: #### 1 0231, 7600 #### [facility] [place] [address] [place]: Michele Torres MD Protein [Mass/Vol] 7.1 g/dL Normal 6.1-8.1 [facility] Comment on above: Performed By: #### 1 0231, 7600 #### [facility] [address], [address] [place] [address] [place]: Michele Torres MD Sodium [Moles/Vol] 140 mmol/L Normal 135-146 [facility] Comment on above: Performed By: #### 1 0231, 7600 #### [facility] [place] [address] [place]: Michele Torres MD Urea nitrogen [Mass/Vol] 15 mg/dL Normal 7-25 [facility] Comment on above: Performed By: #### 1 0231, 7600 #### [facility] of [place] [address] [place]: Michele Torres MD Urea nitrogen/Creatinine [Mass ratio] NOT APPLICABLE Normal 6-22 [facility] Comment on above: Performed By: #### 1 0231, 7600 #### [facility] [address], [address] [place] [address] [place]: Michele Torres MD LIPID PANEL, [facility] 10-24 Cholesterol [Mass/Vol] 220 mg/dL High <200 [facility] Comment on above: Performed By: #### 1 023, 0 #### [facility] [place] [address] [place]: Michele Torres MD Cholesterol in HDL [Mass/Vol] 78 mg/dL Normal > OR = 50 [facility] Comment on above: Performed By: #### 1 230, 0 #### [facility] [address], [address] [place] [address] [place]: Michele Torres MD Cholesterol in LDL [Mass/Vol] 124 mg/dL (calc) High [facility] Comment on above: Result Comment: Refe rence range: <100 Desirable range <100 mg/dL for primary prevention; <70 mg/dL for patients with CHD or diabetic patients with > or = 2 CHD risk factors. LDL-C is now calculated using the Abner-Estefania calculation, which is a validated novel method providing better accuracy than the Friedewald equation in the estimation of LDL-C. Abner ARIAS et al. TANIA. 2013;310(19): 0589-7640 (http://education.RetSKU.com/faq/VNE643) Performed By: #### 1 230, 7599 #### [facility] [place] [address] [place]: Michele Torres MD Cholesterol.total/Choles terol in HDL [Mass ratio] 2.8 (calc) Normal <5.0 [facility] Comment on above: Performed By: #### 1 023, 0 #### [facility] [place] [address] [place]: Michele Torres MD NON HDL CHOLESTEROL 142 mg/dL (calc) High <130 [facility] Comment on above: Result Comment: For patients with diabetes plus 1 major ASCVD risk factor, treating to a non-HDL-C goal of <100 mg/dL (LDL-C of <70 mg/dL) is considered a therapeutic option. Performed By: #### 1 023, 7600 #### [facility] [address], [address] [place] [address] [place]: Michele Torres MD Triglyceride [Mass/Vol] 82 mg/dL Normal <150 [facility] Comment on above: Performed By: #### 1 023, 7600 #### [facility] [address], [address] [place] [address] [place]: Michele Torres MD MAMM DIGITAL BILAT SCREENon 11-07-2020 MAMM DIGITAL BILAT SCREEN [address] [address] Patient: DOMINIC GARCIA Phone#: : 1950 Age: 69 Gender: F Pt. Type: Out Account: [id number] Location: Ordering: [facility] Exam Date: 11/07/2020/9:59 Family Phys: Charge Code: [id number] Physician: Labette Order #: [id number] DLP Dose#: PROCEDURE: MAMM BILAT DIGITAL SCREENING WITH CAD COMPARISON: [facility], BILAT SCREENING, 09/30/2018, 12:38. [facility], BILAT SCREENING, 10/29/2019, 9:16. INDICATIONS: Screening. BREAST COMPOSITION: Scattered fibroglandular densities(25-50% glandular). FINDINGS: DIAGNOSTIC CATEGORY 1--NEGATIVE ASSESSMENT. RIGHT BREAST: No significant suspicious finding. No significant change has occurred. LEFT BREAST: No significant suspicious finding. No significant change has occurred. RECOMMENDATIONS: ROUTINE MAMMOGRAM AND CLINICAL EVALUATION IN 12 MONTHS. PLEASE NOTE: A NORMAL MAMMOGRAM DOES NOT EXCLUDE THE POSSIBILITY OF BREAST CANCER. A CLINICALLY SUSPICIOUS PALPABLE LUMP SHOULD BE BIOPSIED. THIS FACILITY UTILIZES A REMINDER SYSTEM TO ENSURE THAT ALL PATIENTS RECEIVE REMINDER LETTERS FOR APPOINTMENTS. THIS INCLUDES REMINDERS FOR ROUTINE MAMMOGRAMS, DIAGNOSITC MAMMOGRAMS, OR OTHER BREAST IMAGING INTERVENTIONS WHEN APPROPRIATE. THIS PATIENT WILL BE PLACED IN THE APPROPRIATE REMINDER SYSTEM. Dictated by: Petty Bliss MD on 11/07/2020 at 10:50 Approved by: Petty Bliss MD on 11/07/2020 at 10:52 Normal [facility] US AORTAon 11-19-2019 [place] [address] Patient: DOMINIC GARCIA Phone#: : 1950 Age: 68 Gender: F Pt. Type: Out Account: [id number] Location: Ordering: [facility] Exam Date: 11/19/2019/8:44 Family Phys: [facility] Charge Code: [id number] Physician: Labette Order #: [id number] DLP Dose#: PROCEDURE: AORTA ULTRASOUND COMPARISON: None. INDICATIONS: Screening for aneurysm TECHNIQUE: Ultrasound was performed of the abdominal aorta. FINDINGS: AORTA: Normal. No aneurysm, significant atherosclerosis, or visible occlusion. Maximum diameter is 1.9 centimeters. The bifurcation is partially obscured by bowel gas. OTHER: Negative. CONCLUSION: 1. There is no evidence of aneurysmal dilatation. Dictated by: Valentine Musa MD on 11/19/2019 at 9:28 Approved by: Valentine Musa MD on 11/19/2019 at 9:28 Normal [facility] Vital Signs Date Time Vital Sign Value Performing Clinician Ange bowen 11-12-2022 06:57-0500 Body height 167.[address] [facility] 11-12-2022 06:57-0500 Body mass index (BMI) [Ratio] 32.8 kg/m2 [facility] 11-12-2022 06:57-0500 Body temperature 97.2 [degF] [facility] 11-12-2022 06:57-0500 Body weight 92.[address] [facility] 11-12-2022 06:57-0500 Diastolic blood pressure 87 mm[Hg] [facility] 11-12-2022 06:57-0500 Heart rate 98 /min [facility] 11-12-2022 06:57-0500 Respiratory rate 18 /min [facility] 11-12-2022 06:57-0500 SaO2% (BldA) [Mass fraction] 98 % [facility] 11-12-2022 06:57-0500 Systolic blood pressure 178 mm[Hg] [facility] 05-24-2022 10:00-0400 Body temperature 97.5 [degF] Dr. Zafar Spivey Work Phone: [facility] Work Phone: 05-24-2022 10:00-0400 Diastolic blood pressure 74 mm[Hg] Dr. Zafar Spivey Work Phone: [facility] Work Phone: 05-24-2022 10:00-0400 Heart rate 68 /min Dr. Zafar Spivey Work Phone: [facility] Work Phone: 05-24-2022 10:00-0400 Respiratory rate 18 /min Dr. Zafar Spivey Work Phone: [facility] Work Phone: 05-24-2022 10:00-0400 SaO2% (BldA) [Mass fraction] 99 % Dr. Zafar Spivey Work Phone: [facility] Work Phone: 05-24-2022 10:00-0400 Systolic blood pressure 116 mm[Hg] Dr. Zafar Spivey Work Phone: [facility] Work Phone: 05-24-2022 08:01-0400 Body height 162.[address] Zafar Spivey Work Phone: [facility] Work Phone: 05-24-2022 08:01-0400 Body mass index (BMI) [Ratio] 32.6 kg/m2 Dr. Zafar Spivey Work Phone: [facility] Work Phone: 05-24-2022 08:01-0400 Body weight 86.[address] Zafar Spivey Work Phone: [facility] Work Phone: 02-16-2022 11:14-0400 Body height 162.[address] Zafar Spivey Work Phone: [facility] Work Phone: 02-16-2022 11:14-0400 Body mass index (BMI) [Ratio] 33.5 kg/m2 Dr. Zafar Spivey Work Phone: [facility] Work Phone: 02-16-2022 11:14-0400 Body weight 88.[address] Zafar Spivey Work Phone: [facility] Work Phone: 02-16-2022 11:14-0400 Diastolic blood pressure 81 mm[Hg] Dr. Zafar Spivey Work Phone: [facility] Work Phone: 02-16-2022 11:14-0400 Heart rate 72 /min Dr. Zafar Spivey Work Phone: [facility] Work Phone: 02-16-2022 11:14-0400 SaO2% (BldA) [Mass fraction] 96 % Dr. Zaafr Spivey Work Phone: [facility] Work Phone: 02-16-2022 11:14-0400 Systolic blood pressure 148 mm[Hg] Dr. Zafar Spivey Work Phone: [facility] Work Phone: Encounters Encounter Date Encounter Type Care Provider Facility Start: 01-01-2025 End: 01-01-[address] Zafar Spivey DO Work Phone: [facility] Work Phone: Start: 01-01-2025 End: 01-01-[address] Zafar Spivey DO -Laboratory, Specimen Work Phone: Start: 01-01-2025 End: 01-01-2025 ambulatory Zafar Stoddard:[facility] Start: 12-10-2024 End: 12-10-[address] Zafar Spivey DO Work Phone: [facility] Work Phone: Start: 12-10-2024 End: 12-10-[address] Zafar Spivey DO -Outpatient Bone Densitometry Work Phone: Start: 12-10-2024 End: 12-10-2024 ambulatory Zafar Spivey Facility:[facility] Start: 11-13-2024 End: 11-13-[address] Zafar Spivey DO -Laboratory Work Phone: Start: 11-13-2024 End: 11-13-2024 ambulatory Zafar Spivey Facility:[facility] Start: 05-11-2024 End: 05-11-2024 ambulatory Zafar Spivey Facility:[facility] Start: 11-12-2023 End: 11-12-[address] Zafar Spivey Work Phone: [facility] Work Phone: Start: 11-12-2023 End: 11-12-[address] Zafar Spviey Work Phone: [facility]-Outpatient Breast Imaging Work Phone: Start: 10-14-2023 End: 10-14-[address] Zafar Spivey Work Phone: [facility] Gastroenterology Work Phone: Start: 05-15-2023 End: 05-15-2023 ambulatory [facility] Work Phone: Start: 05-15-2023 End: 05-15-2023 Patient encounter procedure [facility]-Laboratory Work Phone: Start: 04-30-2023 End: 04-30-2023 ambulatory [facility] Work Phone: Start: 04-30-2023 End: 04-30-2023 Patient encounter procedure [facility]-Pulmonary Services/Neurology Work Phone: Start: 01-09-2023 End: 01-09-[address] Zafar Spivey Work Phone: [facility] Work Phone: Start: 01-09-2023 End: 01-09-[address] Zafar Spivey Work Phone: [facility]-MRI - [facility] Start: 11-26-2022 End: 11-26-[address] Zafar Spivey Work Phone: [facility] Work Phone: Start: 11-26-2022 End: 11-26-[address] Zafar Spivey Work Phone: [facility]-Radiology, [facility] Start: 2022 End: [address] Zafar Spivey Work Phone: [facility] Work Phone: Start: 2022 End: [address] Zafar Spivey Work Phone: [facility] Start: 11-12-2022 Non-patient / Non-visit Dr. Zafar Spivey Work Phone: [facility] Start: 11-12-2022 End: 11-12-2022 Emergency department patient visit [facility]-Emergency Department Start: 11-09-2022 End: 11-09-[address] Zafar Spivey Work Phone: [facility] Work Phone: Start: 11-09-2022 End: 11-09-2022 Patient encounter procedure [facility]-Outpatient Breast Imaging Start: 05-24-2022 Non-patient / Non-visit Dr. Zafar Spivey Work Phone: [facility] Start: 05-24-2022 End: 05-24-2022 Admission to same day surgery center Dr. Zafar Spivey Work Phone: [facility]-Endoscopy Start: 05-24-2022 End: 05-24-[address] Zafar Spivey Work Phone: [facility] Work Phone: Start: 05-09-2022 End: 05-09-[address] Zafar Spivey Work Phone: [facility]-Laboratory Start: 02-16-2022 End: 02-16-[address] Zafar Spivey Work Phone: [facility] Gastroenterology Start: 12-14-2020 Patient encounter procedure SELF SELF Facility:[facility] Start: 11-07-2020 End: 11-07-2020 Patient encounter procedure [facility] Start: 11-19-2019 End: 11-19-2019 Patient encounter procedure [facility] Procedures Date Procedure Procedure Detail Performing Clinician Start: 01-01-[address] Zafar Spivey DO Work Phone: Start: 12-10-2024 Dual energy X-ray absorptiometry Dr. Zafar Spivey DO Work Phone: Start: 11-13-2024 Screening mammography Yuridia Spivey DO Work Phone: Start: 11-12-2023 Screening mammography D scarlett Spivey Work Phone: Start: 01-09-2023 MRI of joint of lowe r extremity Dr. Zafar Spivey Work Phone: Start: 11-26-2022 Radiologic examinati on of knee Dr. Zafar Spivey Work Phone: Start: 11-09-2022 Screening mammography Start: 05-24-[address] Zafar waite Work Phone: Plan of Treatment Date Care Activity Detail Author Start: 05-24-2022 Patient discharge [facility] Work Phone: Patient Education ED Pain, Acute , Uncertain Cause [facility] Work Phone: Patient referral [facility] Work Phone: Zinc [Mass/volume] i n Serum or Plasma [facility] Immunizations Immunization Date Immunization Notes Care Provider Fa cili 08-23-[address] Zafar Spivey Work Phone: [facility] Payers Date Payer Category Payer Private Health Insurance CLI [id number] 2024 Self-pay [id number] 2020 Medicare [id number] 2020 Private Health Insurance [id number] 1950 Unknown [id number] 1950 Unknown [id number] 2.16.84 [id number] 1950 Unknown [id number] [id number] Unknown [id number] Unknown [id number] Unknown [id number] 2.16.8 [id number] Unknown [id number] 2.16.8 [id number] Unknown [id number] 2.16.8 [id number] Unknown [id number] 2.16.8 [id number] Unknown [id number] 2.16.8 [id number] Social History Date Type Detail Facility Start: 02-16-2022 End: 10-14-2023 Tobacco smoking status NHIS Unknown if ever smoked [facility] Start: 2020 Rare [facility] Start: 2020 None [facility] Start: 2020 Alone [facility] Start: 11-21-2020 Non-smoker [facility] Start: 1950 Sex Assigned At Female [facility] Start: 10-14-2023 Tobacco smoking stat us NHIS Never smoked tobacco (finding) [facility] Start: 12-17-2024 End: 01-06-2025 Sex Female (finding) [facility] Goals Date Patient Goal Desired Activity /State Mental Status Date Assessment Result Facility 11-12-2022 Cognitive function Level Of Cons ciousness Awake;Alert;Appropriate;Follow s Commands [facility] Work Phone: 05-24-2022 Cognitive function Voice/Name [facility] Work Phone: Discharge summary Note Date & Type Note Facility Discharge summary Note Date/Time November 12, 2022 7:20am [facility] Medical Records Department [address] [place] [address] Emergency Department Summary 11/12/22 MR#: [id number] Acct: [id number] Name: DOMINIC GARCIA Rep #:[id number] : 1950 71 From: Chito Zaidi MD PCP: Dr. Zafar Spivey, DO Status:REG ER Location: ED HPI History of Present Illness Chief Complaint: Other, Pain/Inj Detail of Chief Complaint: RLE pain Informant: patient Onset/Context/Timing Onset: Days (3) Context: Gradual Onset Timing: Continuous Quality of Pain: Dull and Aching Location: R lat calf, now posterior thigh Current Severity: Mild Maximum Severity: Mild Worsened by: nothing Relieved by: nothing Associated Symptoms Associated Symptoms: Negative for Parasthesia, Weakness or Loss of Funtion Narrative Narrative: 71-year-old female presenting with discomfort as started spontaneously in her right calf 3 days ago, now today it is bothering her in her right posterior thigh and not in the calf. She denies any swelling. No chest pain, shortness of breath, palpitations, syncope or near syncope or other symptoms. She denies any injury to her leg. She has a history of fibromyalgia and states this feels different than her typical muscular pain. No history of blood clots. No recenttravel out of the area, immobilization, hospitalization, or surgery. She takes a baby aspirin daily but no anticoagulants. [facility] Medical History Alcohol use Anxiety Arthritis Atrophic vaginitis Cardiology follow-up encounter Easy bruising Endometrial polyp Epigastric pain Fibromyalgia GERD (gastroesophageal reflux disease) History of echocardiogram History of Holter monitoring History of TIA (transient ischemic attack) Hyperlipidemia LDL goal <130 Hypertension Leg cramps Myalgia and myositis Non-smoker Osteopenia Positive EMELY (antinuclear antibody) Raynaud's disease without gangrene Syncope Wears glasses Wears partial dentures Home Medications amlodipine 5 mg tablet 5 mg PO DAILY raynauds 11/20/20 [History Last Taken 05/24/22] cholecalciferol (vitamin D3) 50 mcg (2,000 unit) capsule 2,000 unit PO DAILY vitamin 11/20/20 [History Last Taken 11/20/20] coenzyme Q10 50 mg chewable tablet 100 mg PO QHS Heart Health 11/20/20 [History Last Taken 11/19/20] glucosamine sulf dipot chlr,msm,chond 550 mg-C 30 mg-souleymane 1 mg capsule 1 cap PO BID Arthritis 11/20/20 [History Last Taken 11/20/20] omega-3 fatty acids-fish oil 684 mg-1,200 mg capsule,delayed release 1 ea PO DAILY Supplement 11/20/20 [History Last Taken 11/20/20] aspirin 81 mg chewable tablet 81 mg PO DAILY@0800 ##30 11/21/20 [Rx Last Taken 05/20/22] pantoprazole 20 mg tablet,delayed release 20 mg PO DAILY #30 tabs 11/21/20 [Rx Last Taken 05/24/22] rosuvastatin 20 mg tablet 20 mg PO QHS #30 tabs 11/21/20 [Rx Last Taken Unknown] Caltrate-Calcitrate & Vitamin D (600mg & 1000IU) 1 tablet PO DAILY 01/16/21 [History Last Taken Unknown] Castleford's wort 300 mg capsule 300 mg PO DAILY 01/16/21 [History Last Taken Unknown] ibuprofen 600 mg tablet 600 mg PO BID PRN Pain 01/16/21 [History Last Taken Unknown] psyllium husk 0.4 gram capsule (Daily Fiber) 7 gm PO DAILY 01/16/21 [History Last Taken Unknown] vit B complex 100 combo no.2 100 mg tablet,extended release (B-100 Complex ER) 1tablet PO MOWEFR 01/16/21 [History Last Taken Unknown] multivitamin 1 cap PO DAILY 05/18/22 [History Last Taken Unknown] Allergy/AdvReac Type Severity Reaction Status Date / Time Iodinated Contrast Media Allergy Swelling Verified 11/12/22 06:59 naproxen Allergy Rash Verified 11/12/22 06:59 azithromycin [From Zithromax] AdvReac Vomiting Verified 11/12/22 06:59 Family History Brother Abdominal aortic aneurysm Alcoholism Angina at rest Autoimmune disorder defect blood clots Bowel disease Myocardial infarction, Onset Age: 50 Heart disease Hypertension Mother Abdominal aortic aneurysm Angina at rest Myocardial infarction, Onset Age: 42 Heart disease Grandfather Abdominal aortic aneurysm Myocardial infarction, Onset Age: 47 Hypertension Father Alcoholism Myocardial infarction, Onset Age: 62 Grandfather Myocardial infarction, Onset Age: 57 Heart disease Grandmother Angina at rest Cancer Myocardial infarction, Onset Age: 68 Heart disease Hypertension Grandmother No problems noted. Surgical History History of cardiac catheterization History of hysteroscopy History of tonsillectomy Hx of varicose vein stripping Social History Smoking Status: Never smoker Electronic Cigarette Use: not used second hand exposure: No alcohol intake: current alcohol intake frequency: holidays/special occasions only substance use type: does not use ROS ROS ED Constitutional Constitutional ED: Denies chills or fever(s) Cardiovascular Cardiovascular: Denies chest pain, palpitations or pedal edema Respiratory/Chest Respiratory/Chest: Denies dyspnea Musculoskeletal Musculoskeletal: Reports extremity pain; Denies neck pain Integumentary Denies Abrasions, rash or wounds Neurologic Neurologic: Denies paresthesias or weakness EXAM Physical Exam Const Vital Signs: 11/12/22 06:57 11/12/22 07:05 Temperature 97.2 F L Temperature Source Oral Pulse Rate 98 Respiratory Rate 18 Respiratory Effort Normal Respiratory Pattern Normal Blood Pressure 178/87 H Blood Pressure Mean 117 Pulse Ox 98 Oxygen Delivery Method Room Air Positive well nourished, well developed and obese Constitutional Narrative: Well-appearing, pleasant and conversive in full sentences General Appearance ED: well developed and NAD Nutritional Appearance: obese Neck full ROM and supple Back/Spine normal ROM and normal to inspection Extremity normal to inspection and full ROM Extremity Narrative: No edema in right lower extremity. No calf tenderness. No palpable cords. Negative Luis Fernando. Nontender popliteal fossa and thigh including the area where patient is having pain with there are no palpable or visible abnormalities. 2+/4 dorsalis pedis pulse. Neuro oriented x3, no focal motor deficits and no sensory deficits noted Sensorium / Orientation: alert Psych mental status grossly normal and thought process normal Skin no wounds Skin Narrative: Normal color affected area right lower extremity Rashes: no rashes MDM MDM MDM Narrative Medical decision making narrative: We were able to obtain a stat duplex venous ultrasound of the right lower extremity, it is negative for any venous vascular abnormality/clot. Patient reassured, her exam is otherwise benign, she has good arterial perfusion distally, and based on the location of the discomfort this is more likely to be muscular in etiology. Discharge Plan Triage Chief Complaint: Other, Pain/Inj ED Provider: Chito Zaidi Dx/Rx/DC Orders Clinical Impression: Pain of right lower extremity Instructions: ED Pain, Acute, Uncertain Cause Prescriptions: No Action Castleford's wort 300 mg capsule 300 mg PO DAILY Caltrate-Calcitrate & Vitamin D (600mg & 1000IU) tablet 1 tablet PO DAILY B-100 Complex 100 mg tablet extended release 1 tablet PO MOWEFR psyllium husk [Daily Fiber] 0.4 gram capsule 7 gm PO DAILY amlodipine 5 MG tablet 5 mg PO DAILY omega-3 fatty acids-fish oil 1 EACH capsule,delayed release(DR/EC) 1 ea PO DAILY cholecalciferol (vitamin D3) 2,000 UNIT capsule 2,000 unit PO DAILY coenzyme Q10 50 MG tablet,chewable 100 mg PO QHS glucos sul [id number] 1 EACH capsule 1 cap PO BID aspirin 81 MG tablet,chewable 81 mg PO DAILY@0800 Qty: 30 0RF pantoprazole 20 MG tablet 20 mg PO DAILY Qty: 30 0RF rosuvastatin 20 MG tablet 20 mg PO QHS Qty: 30 0RF ibuprofen 600 mg tablet 600 mg PO BID PRN (Reason: Pain) multivitamin Capsule 1 cap PO DAILY Primary Care Provider: Zafar Spivey Referrals: Zafar Spivey, [Primary Care Provider] - 3-5 Days if not improving Activity Restrictions/Additional Instructions: Your ultrasound is normal, showing no vascular abnormalities to explain your pain including blood clots. You have good blood flow and neurologic function throughout your right leg, so unfortunately further testing here in the emergency department will unlikely determine the cause of this, which is probably either in the skin or nearby muscles. Most of the time these pains areself-limiting, if they do not go away then follow-up with your doctor. [id number] medications and/or topical rubs/patches would be reasonable as needed for pain. Disposition Disposition: Home, Self Care What to do if you have Problems For any increased pain, shortness of breath, bleeding, nausea or vomiting, chestpain, or any unexpected problems, contact your Primary Care Provider. Call [facility] ([phone]) or report to the closest Emergency Room. Call 911 if necessary. 11/12/22 0825 <Electronically signed by Chito Zaidi MD> Cosigner Signature (if applicable): CC: Dr. Zafar Spivey, ~ Signed [facility] Work Phone: Evaluation note Note Date & Type Note Facility Evaluation note Diagnosis Onset Date Colonoscopy planned acute Costochondritis acute GERD (gastroesophageal reflux disease) acute [facility] Work Phone: Evaluation note Note Date & Type Note Facility Evaluation note No assessment information availa ble [facility] Work Phone: Evaluation note Note Date & Type Note Facility Evaluation note Diagnosis Onset Date GERD (gastroesophageal reflux disease) acute [facility] Work Phone: Hospital Discharge instructions Note Date & Type Note Facility Hospital Discharge instructions Additional Instructions Your ultrasound is normal, showing no vascular abnormalities to explain your pain including blood clots. You have good blood flow and neurologic function throughout your right leg, so unfortunately further testing here in the emergency department will unlikely determine the cause of this, which is probably either in the skin or nearby muscles. Most of the time these pains are self-limiting, if they do not go away then follow-up with your doctor. Pfcz-vky-[id number] medications and/or topical rubs/patches would be reasonable as needed for pain. [facility] Work Phone: Reason for referral (narrative) Note Date & Type Note Facility Reason for referral (narrative) No reason for referral information available [facility] Work Phone: Summary Purpose Family History No Family History Records Found Relationship Condition Age at Onset Recorded Date/T carissa brother Abdominal aortic aneurysm (AAA) Unknown Alcoholism Unknown Angina at rest Unknown Autoimmune disorder Unknown Dysmorphism Unknown Unknown Disorder of intestine Unknown Myocardial infarction 52 Cardiac disease Unknown Hypertension Unknown mother Abdominal aortic aneurysm (AAA) Unknown Myocardial infarction 42 grandfather Abdominal aortic aneurysm (AAA) Unknown Myocardial infarction 47 father Alcoholism Unknown Myocardial infarction 62 grandfather Myocardial infarction 57 grandmother Angina at rest Unknown Malignant neoplasm Unknown Myocardial infarction 68 Advance Directives No Advanced Directives Records Found Advance Directive Response Recorded Date/ Time Living Will No November 20 021 7:29pm Power of Beauty Artist No 2020 7:29pm Advance Directive Response Recorded Date/ Time Name of Medical Power of Beauty Artist SEN May 18, 2022 3:09pm Living Will Yes May 18 3:09pm Power of Beauty Artist Yes May 18 022 3:09pm Advance Directive Response Recorded Date/ Time Name of Medical Power of Beauty Artist sen liriano November 12, 2022 7:03am Living Will Yes November 12 023 7:03am Power of Beauty Artist Yes November 12, 2022 7:03am Advance Directive Response Recorded Date/ Time Name of Medical Power of Beauty Artist sen liriano November 12, 2022 8:03am Living Will Yes November 12 023 8:03am Power of Beauty Artist Yes November 12, 2022 8:03am Advance Directive Response Recorded Date/ Time Living Will Yes November 12 8:03am Power of Beauty Artist Yes November 12, 2022 8:03am Advance Directive Response Recorded Date/ Time Living Will Yes February 20th, 2 023 7:03am Power of Beauty Artist Yes November 12, 2022 7:03am Advance Directive Response Recorded Date/ Time Living Will Yes November 12 8:03am Do you have a Healthcare Power of Beauty Artist? Yes November 12, 2022 8:03am Chief Complaint and Reason for Visit Chief Complaint Gastroesophageal ref lux disease (GERD) Reason for Visit Colonoscopy planned Costochondritis GERD (gastroesophageal reflux disease) Chief Complaint SCREENING right calf, thigh pain Chief Complaint SCREENING right calf, thigh pain RIGHT KNEE PAIN Chief Complaint SCREENING right calf, thigh pain RIGHT KNEE PAIN RT MEDIAL KNEE PAIN W/INSTABILITY; SUSPECT MENISCU Chief Complaint RT MEDIAL KNEE PAIN W/INSTABILITY; SUSPECT MENISCU PRE OP Chief Complaint PRE OP Chief Complaint 1 YR FU SCREENING Reason for Visit GERD (gastroesophage al reflux disease) Chief Complaint Admit Date FASTING November 13, 2024 9:21am SCREENING November 13, 2024 9:36am OSTEO December 10, 2024 8:2 4am Additional Source Comments INFORMATION SOURCE (unrecogn ized section and content) DATE CREATED AUTHOR [facility]08/[address] [facility] DATE CREATED AUTHOR AUTHOR'S ORGANIZ ATION 11/09/2020 [facility] DATE CREATED AUTHOR AUTHOR'S ORGANIZ ATION 12/15/2020 [facility] DATE CREATED AUTHOR AUTHOR'S ORGANIZ ATION 01/09/2025 [facility] Goals (unrecognized section and content) Goals may be documented in a n alternate sectionGoals may be documented in an alternate sectionGoals may be documented in an alternate sectionGoals may be documented in an alternate sectionGoals may be documented in an alternate sectionGoals may be documented in an alternate sectionGoals may be documented in an alternate sectionGoals may be documented in an alternate sectionGoals may be documented in an alternate sectionGoals may be documented in an alternate sectionGoals may be documented in an alternate sectionGoals may be documented in an alternate section Care Teams (unrecognized sec tion and content) Team Status: Active Member Role Status Dates Dr. Zafar Spviey DO Primary Care Provider Active Team Status: Inactive Member Role Status Dates Dr. Zafar Spivey DO Primary Care Prov ider, Attending Provider, Referring Provider Active Team Status: Inactive Member Role Status Dates Dr. Zafar Spivey DO Primary Care Provider Active Patricia Yoana , PA Attending Provider, Referring Provide r Active Team Status: Active Member Role Status Dates Dr. Zafar Spivey DO Primary Care Provider, Attendin g Provider Active Team Status: Active Member Role Status Dates Dr. Zafar Spivey DO Primary Care Prov ider, Attending Provider, Referring Provider Active Team Status: Inactive Member Role Status Dates Dr. Zafar Spivey DO Primary Care Provider Active Dr. Chito Zaidi MD Emergency Provider Active Team Status: Active Member Role Status Dates Dr. Zafar Spivey DO Primary Care Provider Active Dr. Kevin Rooney MD Attending Provider Active Team Status: Inactive Member Role Status Dates Dr. Zafar Spivey DO Primary Care Provider, Attendin g Provider Active Team Status: Inactive Member Role Status Dates Dr. Zafar Spivey DO Primary Care Provider Active Dr. Chito Zaidi MD Attending Provider, Emergency Provider Active Team Status: Active Member Role Status Dates Dr. Zafar Spivey DO Primary Care Provider Active Dr. Kevin Rooney MD Attending Provider Active Dr. Chito Zaiid MD Referring Provider Active Team Status: Inactive Member Role Status Dates Dr. Zafar Spivey DO Primary Care Provider Active Dr. Louie Gonzales MD Attending Provider, Referring P rovider Active Team Status: Inactive Member Role Status Dates Dr. Zafar Spivey DO Primary Care Provider, Referrin g Provider Active Dr. Dylan Smith DO Attending Provider Active Team Status: Inactive Member Role Status Dates Dr. Zafar Spivey DO Primary Care Provider Active Start: November 13, 2024 End: November 13, 2024 Dr. Zafar Spivey DO Attending Provider Active Start: November 13, 2024 End: November 13, 2024 Dr. Zafar Spivey DO Referring Provider Active Start: November 13, 2024 End: November 13, 2024 Team Status: Inactive Member Role Status Dates Dr. Zafar Spivey DO Primary Care Provider Active Start: December 10, 2024 End: December 10, 2024 Dr. Zafar Spivey DO Attending Provider Active Start: December 10, 2024 End: December 10, 2024 Dr. Zafar Spivey DO Referring Provider Active Start: December 10, 2024 End: December 10, 2024 Team Status: Inactive Member Role Status Dates Dr. Zafar Spivey DO Primary Care Provider Active Start: January 01, 2025 End: January 01, 2025 Dr. Zafar Patric , DO Attending Provider Active Start: January 01, 2025 End: January 01, 2025 FOR RECORDS PERTAINING TO PATIENTS WHO ARE OR HAVE BEEN ENROLLED IN A CHEMICAL DEPENDENCY/SUBSTANCEABUSE PROGRAM, SOME INFORMATION MAY BE OMITTED. This clinical summary was aggregated from multiple sources. Caution should be exercised in using it in the provision of clinical care. This summary normalizes information from multiple sources, and as a consequence, information in this document may materially change the coding, format and clinical context of patient data. In addition, data may be omitted in some cases. CLINICAL DECISIONS SHOULD BE BASED ON THE PRIMARY CLINICAL RECORDS. [facility] provides no warranty or guarantee of the accuracy or completeness of information in this document.
--- NOTE | 2025-03-10 03:36 | ED.VIS.CHEST ---
HPI <Dr. Allie Guan, DO - Last Filed: 03/10/25 07:11> History of Present Illness Chief Complaint: Chest Pain Informant: patient Narrative Narrative: Patient is a 74-year-old female with history of hypertension, hyperlipidemia, TIA, GERD and anxiety as well as fibromyalgia presenting with chest pain as well as elevated blood pressure at home. Patient states yesterday she had 2 twinges of pain in the center of her chest. She states they were sharp but very transiently lasting for couple seconds at a time. She does not think they were particularly severe. She denies any radiation. Tonight she had another twinge of pain in the same area (lower sternal area) that woke her up from sleep. She states this 1 seemed a little sharper. This prompted her to check her blood pressure around 1:30 AM. Her first blood pressure was 140/84 however she waited a couple minutes and continue to check her blood pressure 2 more times and her blood pressure continued to go up (161/99 and then 198/101). These elevated blood pressures in the setting of her pain alarmed her and she called 911. Patient states she has had chest pain in the past and ultimately was felt to be anxiety related. She has had a negative cardiac catheterization in the past as well. She denies any recent swelling of her legs. Denies any history of DVT or PE. Is not on any blood thinners. Denies any associate diaphoresis, nausea, vomiting, back pain or shortness of breath. States that yesterday when she had the initial episodes of pain she took a deep breath the pain went away. [facility] <Dr. Allie Guan, DO - Last Filed: 03/10/25 07:11> [facility] Medical History Alcohol use Anxiety Arthritis Atrophic vaginitis Cardiology follow-up encounter Easy bruising Endometrial polyp Epigastric pain Fibromyalgia GERD (gastroesophageal reflux disease) History of echocardiogram History of Holter monitoring History of TIA (transient ischemic attack) Hyperlipidemia LDL goal <130 Hypertension Leg cramps Myalgia and myositis Non-smoker Osteopenia Positive EMELY (antinuclear antibody) Raynaud's disease without gangrene Syncope Wears glasses Wears partial dentures Home Medications ?Medication ?Instructions ?Recorded ?Last Taken ?Type amlodipine 5 mg tablet 5 mg PO DAILY raynauds 11/20/20 05/24/22 History cholecalciferol (vitamin D3) 50 2,000 unit PO DAILY vitamin 11/20/20 11/20/20 History mcg (2,000 unit) capsule coenzyme Q10 50 mg chewable tablet 100 mg PO QHS Heart Health 11/20/20 11/19/20 History glucosamine sulf dipot 1 cap PO BID Arthritis 11/20/20 11/20/20 History chlr,msm,chond 550 mg-C 30 mg-souleymane 1 mg capsule omega-3 fatty acids-fish oil 684 1 ea PO DAILY Supplement 11/20/20 11/20/20 History mg-1,200 mg capsule,delayed release aspirin 81 mg chewable tablet 81 mg PO DAILY@0800 ##30 11/21/20 05/20/22 Rx pantoprazole 20 mg tablet,delayed 20 mg PO DAILY #30 tabs 11/21/20 05/24/22 Rx release [place]'s wort 300 mg capsule 300 mg PO DAILY 01/16/21 Unknown History turmeric 400 mg capsule 454 mg PO DAILY 10/14/23 Unknown History alendronate 70 mg tablet 70 mg PO QWEEK 03/10/25 Unknown History pravastatin 40 mg tablet 40 mg PO DAILY 03/10/25 Unknown History Allergy/AdvReac Type Severity Reaction Status Date / Time Iodinated Contrast Media Allergy Swelling Verified 03/10/25 02:03 naproxen Allergy Rash Verified 03/10/25 02:03 rosuvastatin AdvReac Intermediate Myalgia Verified 03/10/25 02:03 celecoxib (From Celebrex) AdvReac Mild Hair loss Verified 03/10/25 02:03 azithromycin (From Zithromax) AdvReac Vomiting Verified 03/10/25 02:03 Family History Brother Abdominal aortic aneurysm Alcoholism Angina at rest Autoimmune disorder defect blood clots Bowel disease Myocardial infarction, Onset Age: 50 Heart disease Hypertension Mother Abdominal aortic aneurysm Angina at rest Myocardial infarction, Onset Age: 42 Heart disease Grandfather Abdominal aortic aneurysm Myocardial infarction, Onset Age: 47 Hypertension Father Alcoholism Myocardial infarction, Onset Age: 62 Grandfather Myocardial infarction, Onset Age: 57 Heart disease Grandmother Angina at rest Cancer Myocardial infarction, Onset Age: 68 Heart disease Hypertension Grandmother No problems noted. Surgical History History of cardiac catheterization History of hysteroscopy History of tonsillectomy Hx of varicose vein stripping Social History Smoking Status: Never smoker Electronic Cigarette Use: not used second hand exposure: No alcohol intake: current alcohol intake frequency: holidays/special occasions only substance use type: does not use ROS <Dr. Allie Guan, DO - Last Filed: 03/10/25 07:11> ROS ED Constitutional Constitutional ED: Denies chills, fever(s) or sweats Cardiovascular Cardiovascular: Reports as per HPI and chest pain; Denies palpitations or racing heartbeat Respiratory/Chest Respiratory/Chest: Denies cough or dyspnea Gastrointestinal Gastrointestinal: Denies nausea or vomiting Musculoskeletal Musculoskeletal: Denies arthralgias, back pain or myalgias Neurologic Neurologic: Denies paresthesias or weakness Psychiatric Psychiatric: Reports anxiety Hematologic/Lymphatic Hematologic/Lymphatic: Denies easy bleeding or easy bruising EXAM <Dr. Allie Guan, DO - Last Filed: 03/10/25 07:11> Physical Exam Const Vital Signs: 03/10/25 02:03 03/10/25 02:05 03/10/25 03:00 Temperature 98.1 F Temperature Source Oral Pulse Rate 88 69 Respiratory Rate 16 16 Respiratory Effort Normal Non-Labored Respiratory Pattern Normal Blood Pressure 138/61 H 145/75 H Blood Pressure Mean 86 98 Pulse Ox 99 96 Oxygen Delivery Method Room Air Room Air 03/10/25 03:05 03/10/25 04:00 03/10/25 05:00 Temperature Temperature Source Pulse Rate 65 62 Respiratory Rate 16 16 Respiratory Effort Respiratory Pattern Blood Pressure 148/79 H 139/67 H Blood Pressure Mean 102 91 Pulse Ox 99 100 97 Oxygen Delivery Method Room Air Room Air Room Air 03/10/25 06:00 03/10/25 07:00 Temperature Temperature Source Pulse Rate 60 77 Respiratory Rate 16 20 H Respiratory Effort Respiratory Pattern Blood Pressure 134/68 H 133/68 H Blood Pressure Mean 90 89 Pulse Ox 96 98 Oxygen Delivery Method Room Air Positive well nourished and well developed General Appearance ED: well developed and NAD HEENT Reports moist mucous membranes Eyes PERRL and EOMs intact bilaterally Neck supple and no JVD Chest Wall inspection of chest normal and palpation of chest normal Chest: Negative for tenderness Resp normal respiratory effort and clear to auscultation bilaterally Cardio regular rate, regular rhythm and no murmurs Peripheral Pulses: pulses 2+ throughout GI normal to inspection, nondistended, normoactive bowel sounds and soft to palpation Extremity normal to inspection General Extremety ED: Negative for edema General Extremity: Negative for edema Neuro oriented x3 Sensorium / Orientation: awake Motor Exam: Negative for general weakness Psych mental status grossly normal Skin no rashes or lesions noted and no wounds <Dr. Nicolasa Fontenot, DO - Last Filed: 03/10/25 08:25> Physical Exam Const Vital Signs: 03/10/25 02:03 03/10/25 02:05 03/10/25 03:00 Temperature 98.1 F Temperature Source Oral Pulse Rate 88 69 Respiratory Rate 16 16 Respiratory Effort Normal Non-Labored Respiratory Pattern Normal Blood Pressure 138/61 H 145/75 H Blood Pressure Mean 86 98 Pulse Ox 99 96 Oxygen Delivery Method Room Air Room Air 03/10/25 03:05 03/10/25 04:00 03/10/25 05:00 Temperature Temperature Source Pulse Rate 65 62 Respiratory Rate 16 16 Respiratory Effort Respiratory Pattern Blood Pressure 148/79 H 139/67 H Blood Pressure Mean 102 91 Pulse Ox 99 100 97 Oxygen Delivery Method Room Air Room Air Room Air 03/10/25 06:00 03/10/25 07:00 Temperature Temperature Source Pulse Rate 60 77 Respiratory Rate 16 20 H Respiratory Effort Respiratory Pattern Blood Pressure 134/68 H 133/68 H Blood Pressure Mean 90 89 Pulse Ox 96 98 Oxygen Delivery Method Room Air <Dr. Allie Guan, DO - Last Filed: 03/10/25 07:11> Heart Score History: Slightly/Non-Suspicious ECG: Nonspecific Repolarization Age: >/= 65 years Risk Factors: 1 or 2 Risk Factors Troponin: >1 - <3 Normal Limit Score: 5 <Dr. Nicolasa Fontenot, DO - Last Filed: 03/10/25 08:25> Heart Score Score: 5 MDM <Dr. Allie Guan, DO - Last Filed: 03/10/25 07:11> MDM MDM Narrative Medical decision making narrative: Patient is a 74-year-old female presenting with twinges of chest pain over the past 24 to 48 hours. She had an episode that woke her up from sleep and then she checked her blood pressure is elevated this is what prompted her to come in. She is otherwise asymptomatic. Vital signs normal in the emergency room. Differential includes ACS, cardiac catch, costochondritis, pneumonia, pleurisy. CBC and BMP obtained which are normal. Initial high-sensitivity troponin is 14. Repeat is 23. Will obtain a 4-hour troponin especially as there was a significant delay with the 2-hour troponin and I do question if there could have been a lab error. Will be signed out to oncoming physician for final troponin result and for final disposition. Patient asymptomatic at this time Lab Data Attestation: I reviewed the patient's lab results. Labs: Laboratory Results - last 24 hr 03/10/25 03/10/25 03/10/25 02:15 03:22 05:25 WBC 7.1 RBC 3.97 L Hgb 13.0 Hct 38.1 MCV 96.0 MCH 32.7 H MCHC 34.1 RDW Std Deviation 50.0 H RDW Coeff of Kirill 14.0 Plt Count 277 MPV 9.7 Immature Gran % (Auto) 0.100 Neut % (Auto) 35.9 L Lymph % (Auto) 51.3 H Menard % (Auto) 8.6 Eos % (Auto) 3.5 Baso % (Auto) 0.6 Absolute Neuts (auto) 2.6 Absolute Lymphs (auto) 3.65 Nucleated RBC % 0 Sodium Cancelled 138 Potassium Cancelled 3.7 Chloride Cancelled 104 Carbon Dioxide Cancelled 23.6 Anion Gap Cancelled 11 BUN Cancelled 17 Creatinine Cancelled 0.68 L Estim Creat Clear Calc Cancelled 70.10 Est GFR (MDRD) Non-Af Cancelled 92 BUN/Creatinine Ratio Cancelled 25.5 H Glucose Cancelled 111 H Calcium Cancelled 9.2 Troponin T High Sens Cancelled 14 Troponin T Hi Sens 2 Hr 23 H Troponin T Hi Sens 4Hr 03/10/25 07:28 WBC RBC Hgb Hct MCV MCH MCHC RDW Std Deviation RDW Coeff of Kirill Plt Count MPV Immature Gran % (Auto) Neut % (Auto) Lymph % (Auto) Menard % (Auto) Eos % (Auto) Baso % (Auto) Absolute Neuts (auto) Absolute Lymphs (auto) Nucleated RBC % Sodium Potassium Chloride Carbon Dioxide Anion Gap BUN Creatinine Estim Creat Clear Calc Est GFR (MDRD) Non-Af BUN/Creatinine Ratio Glucose Calcium Troponin T High Sens Troponin T Hi Sens 2 Hr Troponin T Hi Sens 4Hr 21 H Radiography Chest X-Ray - ED: 2 View, Read by ED Physician, Read by Radiologist and No Acute Disease Diagnostic Testing: Clinical Impression(s) from Imaging Studies Chest X-Ray 03/10/25 02:50 IMPRESSION: No evidence for acute abnormality. Reading Location: [place] [address] Rhythm Strip Rhythm Strip: Sinus Rhythm Rate: 82 Ectopy: None EKG Initial EKG: Attestation: I personally reviewed and interpreted this EKG as follows: Interpretation: Sinus Rhythm Comments: Normal sinus rhythm rate of 82 bpm Normal axis Normal intervals Nonspecific T wave abnormalities When compared to prior EKG on 04/30/2023, no significant changes Prior EKG tracings: available for review Prior: Unchanged <Dr. Nicolasa Fontenot, DO - Last Filed: 03/10/25 08:25> [facility] MDM Narrative Medical decision making narrative: Patient is a 74-year-old female presenting with twinges of chest pain over the past 24 to 48 hours. She had an episode that woke her up from sleep and then she checked her blood pressure is elevated this is what prompted her to come in. She is otherwise asymptomatic. Vital signs normal in the emergency room. Differential includes ACS, cardiac catch, costochondritis, pneumonia, pleurisy. CBC and BMP obtained which are normal. Initial high-sensitivity troponin is 14. Repeat is 23. Will obtain a 4-hour troponin especially as there was a significant delay with the 2-hour troponin and I do question if there could have been a lab error. Will be signed out to oncoming physician for final troponin result and for final disposition. Patient asymptomatic at this time Dr. Ghosh dictating. Care of patient turned over to me to discuss with hospitalist for admission. Patient presented with chest pain and has elevated delta troponin and was felt needed cardiac rule out. Discussed case with Dr. Marquez who will admit patient to the PCU for observation and likely stress testing. Lab Data Labs: Laboratory Results - last 24 hr 03/10/25 03/10/25 03/10/25 02:15 03:22 05:25 WBC 7.1 RBC 3.97 L Hgb 13.0 Hct 38.1 MCV 96.0 MCH 32.7 H MCHC 34.1 RDW Std Deviation 50.0 H RDW Coeff of Kirill 14.0 Plt Count 277 MPV 9.7 Immature Gran % (Auto) 0.100 Neut % (Auto) 35.9 L Lymph % (Auto) 51.3 H Menard % (Auto) 8.6 Eos % (Auto) 3.5 Baso % (Auto) 0.6 Absolute Neuts (auto) 2.6 Absolute Lymphs (auto) 3.65 Nucleated RBC % 0 Sodium Cancelled 138 Potassium Cancelled 3.7 Chloride Cancelled 104 Carbon Dioxide Cancelled 23.6 Anion Gap Cancelled 11 BUN Cancelled 17 Creatinine Cancelled 0.68 L Estim Creat Clear Calc Cancelled 70.10 Est GFR (MDRD) Non-Af Cancelled 92 BUN/Creatinine Ratio Cancelled 25.5 H Glucose Cancelled 111 H Calcium Cancelled 9.2 Troponin T High Sens Cancelled 14 Troponin T Hi Sens 2 Hr 23 H Troponin T Hi Sens 4Hr 03/10/25 07:28 WBC RBC Hgb Hct MCV MCH MCHC RDW Std Deviation RDW Coeff of Kirill Plt Count MPV Immature Gran % (Auto) Neut % (Auto) Lymph % (Auto) Menard % (Auto) Eos % (Auto) Baso % (Auto) Absolute Neuts (auto) Absolute Lymphs (auto) Nucleated RBC % Sodium Potassium Chloride Carbon Dioxide Anion Gap BUN Creatinine Estim Creat Clear Calc Est GFR (MDRD) Non-Af BUN/Creatinine Ratio Glucose Calcium Troponin T High Sens Troponin T Hi Sens 2 Hr Troponin T Hi Sens 4Hr 21 H Radiography Diagnostic Testing: Clinical Impression(s) from Imaging Studies Chest X-Ray 03/10/25 02:50 IMPRESSION: No evidence for acute abnormality. Reading Location: [facility] Discharge Plan Triage Chief Complaint: Chest Pain ED Provider: Allie Guan Dx/Rx/DC Orders Clinical Impression: Chest pain Prescriptions: No Action [place]'s wort 300 mg capsule 300 mg PO DAILY turmeric 400 mg capsule 454 mg PO DAILY amlodipine 5 MG tablet 5 mg PO DAILY omega-3 fatty acids-fish oil 1 EACH capsule,delayed release(DR/EC) 1 ea PO DAILY cholecalciferol (vitamin D3) 2,000 UNIT capsule 2,000 unit PO DAILY coenzyme Q10 50 MG tablet,chewable 100 mg PO QHS glucos sul [id number] 1 EACH capsule 1 cap PO BID aspirin 81 MG tablet,chewable 81 mg PO DAILY@0800 Qty: 30 0RF pantoprazole 20 MG tablet 20 mg PO DAILY Qty: 30 0RF pravastatin 40 mg tablet 40 mg PO DAILY alendronate 70 mg tablet 70 mg PO QWEEK Primary Care Provider: Zafar Spivey Referrals: Zafar Spivey DO [Primary Care Provider] - Print Language: Belgian
[2025-03-10 04:00] LABS: Anion Gap 11 (5-15); BUN 17 mg/dL (4-19); BUN/Creat Ratio 25.5 RATIO (10-20); Calcium,Total 9.2 mg/dL (7.6-11.0); Carbon Dioxide 23.6 mmol/L (21.0-32.0); Chloride 104 mmol/L (98-108); Creatinine, Serum 0.68 mg/dL (0.70-1.20); EST Glomerular Filtration Rate 92 (>60); Glucose 111 mg/dL (70-99); Potassium 3.7 mmol/L (3.3-5.1); Sodium Level 138 mmol/L (133-145); Troponin T High Sensitivity 14 ng/L (<=14)
[2025-03-10 07:02] LABS: Troponin T High Sens 2 HR 23 ng/L (<=14)
[2025-03-10 08:12] LABS: Troponin T High Sens 4 HR 21 ng/L (<=14)
[2025-03-10] MEDS: Aspirin 325 MG Tablet PO (08:49)
--- NOTE | 2025-03-10 12:35 | STRESSREP ---
Stress Test Report Pharmacologic myocardial perfusion stress test. 74-year-old with a history of chest pain Resting EKG demonstrates sinus rhythm with a rate of 60 bpm. Resting blood pressure is 128/70 mmHg. 0.4 mg of regadenoson was infused per usual protocol followed by rapid intravenous saline flush injection. Continuous EKG monitoring was performed. The maximum heart rate was 93 bpm which was 62% of max impacted heart rate the maximum workload was 1 metabolic equivalent. At rest there were no ST or T wave changes noted to suggest ischemia and at peak infusion nonspecific ST changes were noted which did not meet the criteria for ischemia. No clinical angina is noted. The final blood pressure was 120/68 mmHg. Myocardial perfusion protocol. 11.5 mCi of technetium 99m sestamibi was injected at rest. 0.4 mg of regadenoson was infused per usual protocol. At peak infusion 33.7 mCi of technetium 99m sestamibi was injected stress images were obtained stress and rest images were reconstructed and compared in the short axis vertical long and horizontal long axis. Gated images were also obtained. Perfusion SPECT analysis: Review of the stress images demonstrate normal uptake of tracer noted in all areas of the myocardium. The resting images similar demonstrated normal uptake of tracer noted in all areas of the myocardium. No areas of reversibility are noted to suggest ischemia and no previous infarct is noted. Gated SPECT analysis: The gated ejection fraction is 74%. Conclusion: Normal pharmacologic myocardial perfusion stress test. Preserved ejection fraction.
--- NOTE | 2025-03-10 16:30 | DCINST_ITS ---
Discharge Instructions Diet Discharge Diet: Low fat / Low cholesterol DC O2, CPAP, BIPAP needs Home O2 Discharge instructions: No Dressing / Incision Discharge Activity: Return to Normal Activity Dressing / Incision Call your doctor if you observe: Fever of 101 or Higher, Shortness of breath, Dizziness, Fainting spells, Swelling in the ankles, Chest pain and Increased palpitations (irregular heartbeat) Follow Up Care Test Results: Test results from this visit will be discussed in further detail at your follow-up appointment, if applicable. Discharge Plan Admission Admit Date/Time: 03/10/25 08:23 Attending Provider: William Marquez Primary Care Provider: Zafar Spivey Discharge Orders/Prescriptions Prescriptions: Continued [place]'s wort 300 mg capsule 300 mg PO DAILY turmeric 400 mg capsule 454 mg PO DAILY amlodipine 5 MG tablet 5 mg PO DAILY omega-3 fatty acids-fish oil 1 EACH capsule,delayed release(DR/EC) 1 ea PO DAILY coenzyme Q10 50 MG tablet,chewable 100 mg PO QHS glucos sul [id number] 1 EACH capsule 1 cap PO BID aspirin 81 MG tablet,chewable 81 mg PO DAILY@0800 Qty: 30 0RF pantoprazole 20 MG tablet 20 mg PO DAILY Qty: 30 0RF pravastatin 40 mg tablet 40 mg PO DAILY alendronate 70 mg tablet 70 mg PO QWEEK Triple Magnesium Complex 400 mg magnesium capsule PO QHS Referrals / Follow Up: Zafar Spivey DO [Primary Care Provider] - Within 1 Week Disposition Disposition (needs filled in before D/C Order can be placed): Home, Self Care
--- NOTE | 2025-03-10 18:28 | PCM.HP.STD ---
HPI - General General Date of Admission: 03/10/25 HPI Narrative DOMINIC GARCIA, is a 74 F who presents to the hospital with intermittent chest pain. She says the substernal left side of her chest and it feels like someone is flicking her in her chest. No shortness of breath or lightheadedness associated with it and she says it lasts for about a second at a time, she says she has noticed it intermittently over the last couple months but the reason why she came in was because she noticed that it was happening more frequently and it woke her up. She checked her blood pressure which was significantly elevated so she checked it again which made it even more elevated so she called the squad. By the time the ambulance arrived her blood pressure had improved and she was not having any more chest pain. Her initial troponin was 14 and then her 2-hour was 23 and her 4 hours 21, EKG was nonischemic. Chest x-ray was also normal. So she was admitted for stress test. [facility] Medical History Alcohol use Anxiety Arthritis Atrophic vaginitis Cardiology follow-up encounter Easy bruising Endometrial polyp Epigastric pain Fibromyalgia GERD (gastroesophageal reflux disease) History of echocardiogram History of Holter monitoring History of TIA (transient ischemic attack) Hyperlipidemia LDL goal <130 Hypertension Leg cramps Myalgia and myositis Non-smoker Osteopenia Positive EMELY (antinuclear antibody) Raynaud's disease without gangrene Syncope Wears glasses Wears partial dentures Home Medications ?Medication ?Instructions ?Recorded ?Last Taken ?Type amlodipine 5 mg tablet 5 mg PO DAILY raynauds 11/20/20 05/24/22 History coenzyme Q10 50 mg chewable tablet 100 mg PO [facility] Heart Health 11/20/20 11/19/20 History glucosamine sulf dipot 1 cap PO BID Arthritis 11/20/20 11/20/20 History chlr,msm,chond 550 mg-C 30 mg-souleymane 1 mg capsule omega-3 fatty acids-fish oil 684 1 ea PO DAILY Supplement 11/20/20 11/20/20 History mg-1,200 mg capsule,delayed release aspirin 81 mg chewable tablet 81 mg PO DAILY@0800 ##30 11/21/20 05/20/22 Rx pantoprazole 20 mg tablet,delayed 20 mg PO DAILY #30 tabs 11/21/20 05/24/22 Rx release Estefanía's wort 300 mg capsule 300 mg PO DAILY 01/16/21 Unknown History turmeric 400 mg capsule 454 mg PO DAILY 10/14/23 Unknown History alendronate 70 mg tablet 70 mg PO QWEEK 03/10/25 Unknown History magnesium aspart,citrate,oxide mg PO QHS muscle pain, arthritis 03/10/25 Unknown History (Triple Magnesium Complex) pravastatin 40 mg tablet 40 mg PO DAILY 03/10/25 Unknown History Allergy/AdvReac Type Severity Reaction Status Date / Time Iodinated Contrast Media Allergy Swelling Verified 03/10/25 02:03 naproxen Allergy Rash Verified 03/10/25 02:03 rosuvastatin AdvReac Intermediate Myalgia Verified 03/10/25 02:03 celecoxib (From Celebrex) AdvReac Mild Hair loss Verified 03/10/25 02:03 azithromycin (From Zithromax) AdvReac Vomiting Verified 03/10/25 02:03 Family History Brother Abdominal aortic aneurysm Alcoholism Angina at rest Autoimmune disorder defect blood clots Bowel disease Myocardial infarction, Onset Age: 50 Heart disease Hypertension Mother Abdominal aortic aneurysm Angina at rest Myocardial infarction, Onset Age: 42 Heart disease Grandfather Abdominal aortic aneurysm Myocardial infarction, Onset Age: 47 Hypertension Father Alcoholism Myocardial infarction, Onset Age: 62 Grandfather Myocardial infarction, Onset Age: 57 Heart disease Grandmother Angina at rest Cancer Myocardial infarction, Onset Age: 68 Heart disease Hypertension Grandmother No problems noted. Surgical History History of cardiac catheterization History of hysteroscopy History of tonsillectomy Hx of varicose vein stripping Social History Smoking Status: Never smoker Electronic Cigarette Use: not used second hand exposure: No alcohol intake: current alcohol intake frequency: holidays/special occasions only substance use type: does not use ROS Constitutional Constitutional: Denies chills, fatigue, fever(s) or malaise Eyes Eyes: Denies blurry vision ENT HEENT: Denies headache(s) or nasal discharge Cardiovascular Cardiovascular: Reports chest pain; Denies dyspnea on exertion or syncope Respiratory/Chest Respiratory/Chest: Denies cough, shortness of breath at rest or shortness of breath with exertion Gastrointestinal Gastrointestinal: Denies constipation, diarrhea, nausea or vomiting Genitourinary Genitourinary: Denies dysuria Neurologic Neurologic: Denies focal weakness, numbness or tremor(s) Psychiatric Psychiatric: Denies anxiety or depression Vital Signs Vital Signs Vital Signs: 03/10/25 02:03 03/10/25 02:05 03/10/25 03:00 Temperature 98.1 F Temperature Source Oral Pulse Rate 88 69 Pulse Strength Respiratory Rate 16 16 Respiratory Effort Normal Non-Labored Respiratory Depth Respiratory Pattern Normal Blood Pressure 138/61 H 145/75 H Blood Pressure Mean 86 98 Blood Pressure Source Blood Pressure Position Blood Pressure Location Pulse Ox 99 96 Oxygen Delivery Method Room Air Room Air 03/10/25 03:05 03/10/25 04:00 03/10/25 05:00 Temperature Temperature Source Pulse Rate 65 62 Pulse Strength Respiratory Rate 16 16 Respiratory Effort Respiratory Depth Respiratory Pattern Blood Pressure 148/79 H 139/67 H Blood Pressure Mean 102 91 Blood Pressure Source Blood Pressure Position Blood Pressure Location Pulse Ox 99 100 97 Oxygen Delivery Method Room Air Room Air Room Air 03/10/25 06:00 03/10/25 07:00 03/10/25 08:00 Temperature Temperature Source Pulse Rate 60 77 78 Pulse Strength Respiratory Rate 16 20 H 21 H Respiratory Effort Respiratory Depth Respiratory Pattern Blood Pressure 134/68 H 133/68 H 160/78 H Blood Pressure Mean 90 89 105 Blood Pressure Source Blood Pressure Position Blood Pressure Location Pulse Ox 96 98 99 Oxygen Delivery Method Room Air Room Air 03/10/25 08:50 03/10/25 09:06 03/10/25 09:41 Temperature 97.9 F 97.3 F L Temperature Source Temporal Pulse Rate 78 65 Pulse Strength Respiratory Rate 21 H 18 Respiratory Effort Normal Non-Labored Respiratory Depth Normal Respiratory Pattern Normal Blood Pressure 160/78 H 147/76 H Blood Pressure Mean 105 99 Blood Pressure Source Monitor Blood Pressure Position Semi-Fowlers Blood Pressure Location Left Arm Pulse Ox 99 99 Oxygen Delivery Method Room Air Room Air 03/10/25 10:00 03/10/25 15:06 Temperature 97.4 F L Temperature Source Temporal Pulse Rate 71 Pulse Strength Normal (2+) Respiratory Rate 18 Respiratory Effort Respiratory Depth Respiratory Pattern Blood Pressure 131/71 H Blood Pressure Mean 91 Blood Pressure Source Monitor Blood Pressure Position Semi-Fowlers Blood Pressure Location Left Arm Pulse Ox 98 Oxygen Delivery Method Room Air Weight Weight: 182 lb 1.629 oz Body Mass Index (BMI) 30.3 Physical Exam Narrative General: Alert, Oriented x3, Cooperative, No apparent distress HEENT: Atraumatic, PERRLA, EOMI, Normocephalic Oral: Moist Mucosa Neck: Supple, No JVD Lungs: Diminished, Normal air movement, No rhonchi, No wheeze, No rales Cardiovascular: Regular rate, Regular Rhythm, Normal S1, Normal S2, No murmurs Abdomen: Soft, Non Tender, Non-Distended, No Hepato-splenomegaly Extremities: No edema, Capillary Refill Less than 3 Seconds Skin: No rashes, No breakdown Musculoskeletal: No Tenderness to Palpation of Joints or Extremities Neurological: No focal neurological deficits, Motor Exam 5/5 strength throughout, Sensory exam intact to light touch and pain Psych/Mental Status: Normal Affect, Appropriate Results Lab / Micro Data 03/10/25 02:15 03/10/25 03:22 Labs: Laboratory Results - last 24 hr 03/10/25 02:15: WBC 7.1, RBC 3.97 L, Hgb 13.0, Hct 38.1, MCV 96.0, MCH 32.7 H, MCHC 34.1, RDW Std Deviation 50.0 H, RDW Coeff of Kirill 14.0, Plt Count 277, MPV 9.7, Immature Gran % (Auto) 0.100, Neut % (Auto) 35.9 L, Lymph % (Auto) 51.3 H, [place] % (Auto) 8.6, Eos % (Auto) 3.5, Baso % (Auto) 0.6, Absolute Neuts (auto) 2.6, Absolute Lymphs (auto) 3.65, Nucleated RBC % 0, Sodium Cancelled, Potassium Cancelled, Chloride Cancelled, Carbon Dioxide Cancelled, Anion Gap Cancelled, BUN Cancelled, Creatinine Cancelled, Estim Creat Clear Calc Cancelled, Est GFR (MDRD) Non-Af Cancelled, BUN/Creatinine Ratio Cancelled, Glucose Cancelled, Calcium Cancelled, Troponin T High Sens Cancelled 03/10/25 03:22: Sodium 138, Potassium 3.7, Chloride 104, Carbon Dioxide 23.6, Anion Gap 11, BUN 17, Creatinine 0.68 L, Estim Creat Clear Calc 70.10, Est GFR (MDRD) Non-Af 92, BUN/Creatinine Ratio 25.5 H, Glucose 111 H, Calcium 9.2, Troponin T High Sens 14 03/10/25 05:25: Troponin T Hi Sens 2 Hr 23 H 03/10/25 07:28: Troponin T Hi Sens 4Hr 21 H Rhythm Strip Rhythm Strip: Sinus Rhythm Rate: 82 Ectopy: None Imaging Radiology Impression Chest X-Ray 03/10/25 02:50 IMPRESSION: No evidence for acute abnormality. [facility] Assessment & Plan Assessment/Plan (1) Chest pain: PLAN: Plan 1. Chest pain rule out/HLD ? She does not take any blood pressure medications, she is on Norvasc for her Raynaud's but otherwise just takes pravastatin ? Troponins were insignificantly elevated ? Will obtain a stress test ? Continue with pravastatin ? Continue with aspirin and omega-3 fatty acids 2. GERD ? Stable ? Continue PPI 3. Osteoporosis ? Stable ? Continue with alendronate DVT: Ambulation
== END 2025-03-10 17:07 | disposition home or self-care (01) ==
LOC: ED 08:36 → PCU 08:57
PROVIDERS: Admitting Provider Family Medicine; Emergency Provider Emergency Medicine; PCP Family Medicine; Visit Provider Family Medicine
DX: R07.89 Other chest pain (principal); E78.5 Hyperlipidemia, unspecified; Z79.83 Long term (current) use of bisphosphonates; Z79.82 Long term (current) use of aspirin; I10 Essential (primary) hypertension; K21.9 Gastro-esophageal reflux disease without esophagitis; M81.0 Age-related osteoporosis without current pathological fracture; Z79.899 Other long term (current) drug therapy
CPT/HCPCS: 71046; 78452; 80048; 84484; 85025; 93005; 93017; 99221; 99285; A9500; A4216; G0378; J2785